=== PATIENT | female | born 1940 | race Caucasian/White ===

== ENCOUNTER 2016-11-26 09:50 | Outpatient (RCR) | payer MEDICARE ==
--- OUTSIDE RECORDS SUMMARY | 2016-09-03 09:47 | XMS REPORT | Continuity of Care Document ---
Author Author [facility] Organization [facility] Address Unknown Phone Unavailable Care Team Providers Care Handbag Parts Cutter Name Role Phone MANASA RODARTE DO PCP Insurance Providers Payer Name Policy Number Subscriber Name Relationship Wps Medicare [id number] Jordana Frias V 18 Self / Same As Patient Blue Cross [facility] Supp [id number] Jordana Frias Self / Same As Patient Advance Directives Directive Response Recorded Date/Time Advance Directives No 05/26/14 6:30am Health Care Power of Steam Bone Press Tender No 05/26/14 6:30am Organ Donor No 05/26/14 [...] IH TWICE A DAY 05/18/14 Active Aclidinium [place] 1 Puff IH TWICE A DAY 05/18/14 [...] 2014 1:00pm 312 UG/DL - TESTING PERFORMED BY:[place] [id number] [place] [address] Total Protein May 25, 2014 1:12pm 7.0 [...] MICROSCOPIC EXAM ON UNCENTRIFUGED SPECIMEN Urine Specific [place] October 27, 2013 4:23pm 1.025 H - [...] Protein Electrophoresis Note October 27, 2013 4:23pm [id number] - Urine Protein Electrophoresis Note October 27, 2013 4:23pm [id number] - Free [place] Light Chains, Quant October 27, 2013 4:23pm 13.04 MG/L - Free [place] Light Chains, Quant October 27, 2013 4:23pm 16.89 MG/L - Free [place]/Lambda Light Chain Ratio October 27, 2013 4:23pm 0.77 RATIO - Protein Electrophoresis Pathologist October 27, 2013 4:23pm SEE PATH REPORT - Urine RBC (Auto) October 27, 2013 4:23pm TRACE H - MRSA Screen Nasal May 26, 2014 6:15am MRSA not isolated Procedures No known history of procedures. Encounters Encounter Location Date/Time Discharged Recurring Via [facility] 08/09/14 8:51am Registered Clinic Via [facility] 07/26/14 9:46am
[2016-09-03 09:56] LABS: BASOPHILS % (AUTO) 0 % (0-10); EOSINOPHILS # (AUTO) 0.4 10^3/uL (0.0-0.3); EOSINOPHILS % (AUTO) 4 % (0-10); LYMPHOCYTES # (AUTO) 0.7 X 10^3 (1.0-4.0); LYMPHOCYTES % (AUTO) 8 % (12-44); MEAN CORPUSCULAR HEMOGLOBIN 26 PG (25-34); MEAN CORPUSCULAR HGB CONC 32 G/DL (32-36); MEAN CORPUSCULAR VOLUME 82 FL (80-99); MEAN PLATELET VOLUME 8.7 FL (7.4-10.4); MONOCYTES # (AUTO) 0.6 X 10^3 (0.0-1.0); MONOCYTES % (AUTO) 7 % (0-12); NEUTROPHILS % (AUTO) 80 % (42-75); PLATELET COUNT 388 10^3/uL (130-400); RED BLOOD COUNT 3.63 10^6/uL (4.35-5.85); RED CELL DISTRIBUTION WIDTH 15.5 % (10.0-14.5); WHITE BLOOD COUNT 8.7 10^3/uL (4.3-11.0)
[2016-09-03 10:40] LABS: ALANINE AMINOTRANSFERASE 24 U/L (0-55); ALBUMIN 3.8 G/DL (3.2-4.5); ANION GAP 11 MMOL/L (5-14); ASPARTATE AMINO TRANSFERASE 18 U/L (5-34); BILIRUBIN,TOTAL 0.5 MG/DL (0.1-1.0); BLOOD UREA NITROGEN 17 MG/DL (7-18); BUN/CREATININE RATIO 25; CALCIUM 9.4 MG/DL (8.5-10.1); CARBON DIOXIDE 24 MMOL/L (21-32); CHLORIDE 101 MMOL/L (98-107); CREATININE SERUM 0.69 MG/DL (0.60-1.30); GFR ESTIMATED > 60; GLUCOSE 177 MG/DL (70-105); POTASSIUM 3.8 MMOL/L (3.6-5.0); SODIUM 136 MMOL/L (135-145); TOTAL PROTEIN 6.9 G/DL (6.4-8.2)
[2016-09-03 11:24] LABS: %SAT TOTAL IRON BINDING CAPIC 5 % (15-50); TIBC 263 ug/dL (280-380)
[2016-09-04 07:41] LABS: FERRITIN 198 ng/mL (15-150); UIBC 250 ug/dL (55-450)
[2016-09-11 09:04] LABS: BASOPHILS # (AUTO) 0.1 10^3/uL (0.0-0.1); BASOPHILS % (AUTO) 1 % (0-10); EOSINOPHILS # (AUTO) 0.6 10^3/uL (0.0-0.3); EOSINOPHILS % (AUTO) 7 % (0-10); LYMPHOCYTES # (AUTO) 1.1 X 10^3 (1.0-4.0); LYMPHOCYTES % (AUTO) 13 % (12-44); MEAN CORPUSCULAR HEMOGLOBIN 25 PG (25-34); MEAN CORPUSCULAR HGB CONC 31 G/DL (32-36); MEAN CORPUSCULAR VOLUME 81 FL (80-99); MEAN PLATELET VOLUME 8.3 FL (7.4-10.4); MONOCYTES # (AUTO) 0.9 X 10^3 (0.0-1.0); MONOCYTES % (AUTO) 12 % (0-12); NEUTROPHILS # (AUTO) 5.4 X 10^3 (1.8-7.8); NEUTROPHILS % (AUTO) 68 % (42-75); PLATELET COUNT 679 10^3/uL (130-400); RED BLOOD COUNT 3.85 10^6/uL (4.35-5.85); RED CELL DISTRIBUTION WIDTH 15.4 % (10.0-14.5); WHITE BLOOD COUNT 8.1 10^3/uL (4.3-11.0)
[2016-09-11 09:41] LABS: ALANINE AMINOTRANSFERASE 52 U/L (0-55); ALBUMIN 3.9 G/DL (3.2-4.5); ANION GAP 8 MMOL/L (5-14); ASPARTATE AMINO TRANSFERASE 42 U/L (5-34); BILIRUBIN,TOTAL 0.5 MG/DL (0.1-1.0); BLOOD UREA NITROGEN 10 MG/DL (7-18); BUN/CREATININE RATIO 16; CALCIUM 9.7 MG/DL (8.5-10.1); CARBON DIOXIDE 26 MMOL/L (21-32); CHLORIDE 101 MMOL/L (98-107); CREATININE SERUM 0.63 MG/DL (0.60-1.30); GFR ESTIMATED > 60; GLUCOSE 129 MG/DL (70-105); POTASSIUM 3.7 MMOL/L (3.6-5.0); SODIUM 135 MMOL/L (135-145); TOTAL PROTEIN 7.1 G/DL (6.4-8.2)
[2016-09-24 13:16] LABS: BASOPHILS % (AUTO) 0 % (0-10); EOSINOPHILS % (AUTO) 0 % (0-10); LYMPHOCYTES # (AUTO) 0.7 X 10^3 (1.0-4.0); LYMPHOCYTES % (AUTO) 5 % (12-44); MEAN CORPUSCULAR HEMOGLOBIN 25 PG (25-34); MEAN CORPUSCULAR HGB CONC 31 G/DL (32-36); MEAN CORPUSCULAR VOLUME 80 FL (80-99); MEAN PLATELET VOLUME 8.4 FL (7.4-10.4); MONOCYTES # (AUTO) 0.2 X 10^3 (0.0-1.0); MONOCYTES % (AUTO) 2 % (0-12); NEUTROPHILS # (AUTO) 12.2 X 10^3 (1.8-7.8); NEUTROPHILS % (AUTO) 93 % (42-75); PLATELET COUNT 568 10^3/uL (130-400); RED BLOOD COUNT 3.83 10^6/uL (4.35-5.85); RED CELL DISTRIBUTION WIDTH 15.8 % (10.0-14.5); WHITE BLOOD COUNT 13.1 10^3/uL (4.3-11.0)
[2016-09-24 14:00] LABS: ALANINE AMINOTRANSFERASE 17 U/L (0-55); ALBUMIN 3.9 G/DL (3.2-4.5); ANION GAP 13 MMOL/L (5-14); ASPARTATE AMINO TRANSFERASE 17 U/L (5-34); BILIRUBIN,TOTAL 0.2 MG/DL (0.1-1.0); BLOOD UREA NITROGEN 18 MG/DL (7-18); BUN/CREATININE RATIO 23; CALCIUM 9.5 MG/DL (8.5-10.1); CARBON DIOXIDE 23 MMOL/L (21-32); CHLORIDE 100 MMOL/L (98-107); CREATININE SERUM 0.79 MG/DL (0.60-1.30); GFR ESTIMATED > 60; GLUCOSE 183 MG/DL (70-105); POTASSIUM 4.5 MMOL/L (3.6-5.0); SODIUM 136 MMOL/L (135-145)
[2016-09-24 16:18] LABS: RETICULOCYTE % 1.55 % (0.50-2.40)
[2016-09-24 17:04] LABS: %SAT TOTAL IRON BINDING CAPIC 8 % (15-50); TIBC 266 ug/dL (280-380)
[2016-09-25 08:00] LABS: UIBC 246 ug/dL (55-450)
[2016-09-25 08:01] LABS: FERRITIN 104 ng/mL (15-150)
[2016-11-19 13:25] LABS: BASOPHILS % (AUTO) 0 % (0-10); EOSINOPHILS # (AUTO) 0.2 10^3/uL (0.0-0.3); EOSINOPHILS % (AUTO) 2 % (0-10); LYMPHOCYTES # (AUTO) 1.4 X 10^3 (1.0-4.0); LYMPHOCYTES % (AUTO) 14 % (12-44); MEAN CORPUSCULAR HEMOGLOBIN 24 PG (25-34); MEAN CORPUSCULAR HGB CONC 31 G/DL (32-36); MEAN CORPUSCULAR VOLUME 79 FL (80-99); MEAN PLATELET VOLUME 8.5 FL (7.4-10.4); MONOCYTES # (AUTO) 0.8 X 10^3 (0.0-1.0); MONOCYTES % (AUTO) 8 % (0-12); NEUTROPHILS # (AUTO) 7.5 X 10^3 (1.8-7.8); NEUTROPHILS % (AUTO) 76 % (42-75); PLATELET COUNT 481 10^3/uL (130-400); RED BLOOD COUNT 3.74 10^6/uL (4.35-5.85); RED CELL DISTRIBUTION WIDTH 16.8 % (10.0-14.5); WHITE BLOOD COUNT 9.9 10^3/uL (4.3-11.0)
[2016-11-19 14:22] LABS: ALANINE AMINOTRANSFERASE 13 U/L (0-55); ALBUMIN 3.8 G/DL (3.2-4.5); ANION GAP 11 MMOL/L (5-14); ASPARTATE AMINO TRANSFERASE 14 U/L (5-34); BILIRUBIN,TOTAL 0.2 MG/DL (0.1-1.0); BLOOD UREA NITROGEN 23 MG/DL (7-18); BUN/CREATININE RATIO 30; CALCIUM 9.6 MG/DL (8.5-10.1); CARBON DIOXIDE 24 MMOL/L (21-32); CHLORIDE 101 MMOL/L (98-107); CREATININE SERUM 0.76 MG/DL (0.60-1.30); GFR ESTIMATED > 60; GLUCOSE 134 MG/DL (70-105); POTASSIUM 3.4 MMOL/L (3.6-5.0); SODIUM 136 MMOL/L (135-145); TOTAL PROTEIN 7.1 G/DL (6.4-8.2)
[2016-11-19 14:44] LABS: THYROID STIMULATING HORMONE 0.94 UIU/ML (0.35-4.94)
[2016-11-19 16:25] LABS: %SAT TOTAL IRON BINDING CAPIC 9 % (15-50); TIBC 253 ug/dL (280-380)
[2016-11-20 06:30] LABS: FERRITIN 126 ng/mL (15-150); UIBC 230 ug/dL (55-450)
[~2016-11-26 09:50] MED LIST: ACLI400A IH; ALBU8.5H2 IH; ALBU8.5H4 IH; ALPR.25T PO; BUDE6HFA IH; CALC-754 PO; CHOL200041 PO; CYAN500T44 PO; FERRIC CARBOXYMALTOSE (CANCER) 750 MG in NS (IVPB) CANCER CENTER 250 ML IV SCH; FEXO180T PO; GBPN300C PO; HYDR-3456 PO; IPRA3AMP IH; IRBE300T9 PO; LISI1TAB PO; LISI1TAB8 PO; MTF500T PO; ZAFI20TA6 PO; [UNRECOGNIZED DRUG - OTHER]
== END 2016-12-02 | disposition home or self-care (01) ==
LOC: ONC 09:50
PROVIDERS: ATTEND Internal Medicine Hematology & Oncology
DX: C34.91 Malignant neoplasm of unspecified part of right bronchus or lung (principal); C34.92 Malignant neoplasm of unspecified part of left bronchus or lung; J44.9 Chronic obstructive pulmonary disease, unspecified; E11.9 Type 2 diabetes mellitus without complications; D64.9 Anemia, unspecified; F41.9 Anxiety disorder, unspecified; Z87.891 Personal history of nicotine dependence; Z45.2 Encounter for adjustment and management of vascular access device
CPT/HCPCS: 36415; 36591; 80053; 82728; 83540; 84443; 85025; 85045; 96365; 96523; 99213

== ENCOUNTER 2016-11-28 10:00 | Outpatient (RCR) | payer MEDICARE ==
--- OUTSIDE RECORDS SUMMARY | 2016-09-02 14:45 | XMS REPORT | Continuity of Care Document ---
Author Author [facility] Organization [facility] Address Unknown Phone Unavailable Care Team Providers Care Territory Account Manager Name Role Phone MANASA RODARTE DO PCP Insurance Providers Payer Name Policy Number Subscriber Name Relationship Wps Medicare [id number] Jordana Frias V 18 Self / Same As Patient Blue Cross [facility] Supp [id number] Jordana Frias Self / Same As Patient Advance Directives Directive Response Recorded Date/Time Advance Directives No 05/26/14 6:30am Health Care Power of Numerical Control Machine Operator No 05/26/14 6:30am Organ Donor No 05/26/14 6:30am Problems Medical Problems Problem Onset Date Status Angioedema Unknown Active Medications Medication Dose Route Sig Days/Qty Instructions Order Date Discontinued Date Status HCTZ/Lisinopril (Zestoretic) 1 Each PO DAILY 11/24/12 10/10/13 Discontinued Zafirlukast 20 Mg PO TWICE A DAY 11/24/12 Active Metformin HCl (Glucophage) 500 Mg PO TWICE A DAY WITH MEALS 11/24/12 Active Gabapentin 300 Mg PO DAILY 11/24/12 Active Alprazolam 0.25 Mg PO THREE TIMES A DAY 11/24/12 Active Calcium Carbonate/Vitamin D3 1 Tab PO DAILY 11/24/12 Active Cholecalciferol (Vitamin D3) 2,000 Unit PO DAILY 11/24/12 Active Albuterol 8.5 Gm IH PRN DYSPNEA 10/09/13 05/18/14 Discontinued Ipratropium/Albuterol Sulfate 3 Ml IH FOUR TIMES DAILY PRN DYSPNEA PRN DYSPNEA 10/09/13 Active [B 12 injection] monthly 10/09/13 05/18/14 Discontinued Cyanocobalamin (Vitamin B-12) 500 Mcg PO DAILY 10/09/13 Active Irbesartan 300 Mg PO DAILY 30 Qty 10/10/13 05/18/14 Discontinued Fexofenadine HCl 1 Tab PO DAILY 1 Days 10/10/13 05/18/14 Discontinued Hydrocodone Bit/Acetaminophen 1 Each PO EVERY 6 HOURS PRN PAIN 30 Qty 05/04/14 Active Albuterol 2 Puff IH FOUR TIMES DAILY PRN SHORTNESS OF BREATH Active Lisinopril/Hydrochlorothiazide 1 Tab PO DAILY 05/18/14 Active Budesonide/Formoterol Fumarate 2 Puff IH TWICE A DAY 05/18/14 Active Aclidinium [place] 1 Puff IH TWICE A DAY 05/18/14 Active Social History Social History Problem Response Recorded Date/Time Alcohol Use Occasionally Uses 10/09/2013 8:40pm Recreational Drug Use No 10/09/2013 8:40pm Recent Foreign Travel No 10/09/2013 8:40pm Recent Infectious Disease Exposure No 10/09/2013 8:40pm Hospitalization with Isolation Denies 10/10/2013 10:19am Sexually Transmitted Disease No 10/09/2013 8:40pm HIV/AIDS No 10/09/2013 8:40pm Hospital Discharge Instructions No hospital discharge instructions. Plan of Care No plan of care. Functional Status No functional status results. Allergies, Adverse Reactions, Alerts Allergen Type Severity Reaction Status Last Updated zolpidem tartrate Allergy Unknown Active 05/04/14 Immunizations Name Given Type Date of Pneumonia Vaccine 04/10/10 Historical Date of Influenza Vaccine 08/10/13 Historical Vital Signs Acute Vital Signs Vital Response Date/Time Height 5 ft 2.5 in Weight 126 lb Body Mass Index 22.7 kg/m^2 Results Test Source Date Result Interp. Ref. Range Comments Absolute Reticulocyte Count October 27, 2013 4:23pm 37 10^3/uL N 22-82 Alanine Aminotransferase (ALT/SGPT) May 25, 2014 1:12pm 31 U/L N 30-65 Albumin May 25, 2014 1:12pm 3.2 G/DL L 3.4-5.0 Alkaline Phosphatase May 25, 2014 1:12pm 61 U/L N 50-136 Aspartate Amino Transf (AST/SGOT) May 25, 2014 1:12pm 19 U/L N 15-37 BUN/Creatinine Ratio May 25, 2014 1:12pm 26 - Basophils # (Auto) May 25, 2014 1:00pm 0.0 10^3/uL N 0.0-0.1 Basophils (%) (Auto) May 25, 2014 1:00pm 0 % N 0-10 Blood Urea Nitrogen May 25, 2014 1:12pm 21 MG/DL H 7-18 Calcium Level May 25, 2014 1:12pm 9.0 MG/DL N 8.5-10.1 Carbon Dioxide Level May 25, 2014 1:12pm 29 MMOL/L N 21-32 Chloride Level May 25, 2014 1:12pm 102 MMOL/L N 101-110 Creatinine May 25, 2014 1:12pm 0.8 MG/DL N 0.6-1.3 Eosinophils # (Auto) May 25, 2014 1:00pm 0.1 10^3/uL N 0.0-0.3 Eosinophils (%) (Auto) May 25, 2014 1:00pm 2 % N 0-10 Erythrocyte Sedimentation Rate October 27, 2013 4:23pm 30 MM/HR N 0-30 Ferritin May 25, 2014 1:00pm 71 NG/ML - Glucose Level May 25, 2014 1:12pm 136 MG/DL H 74-106 Hematocrit May 25, 2014 1:00pm 31 % L 35-52 Hemoglobin May 25, 2014 1:00pm 10.1 G/DL L 11.5-16.0 Iron Level May 25, 2014 1:00pm 28 L UG/DL - Lymphocytes # (Auto) May 25, 2014 1:00pm 1.5 X 10^3 N 1.0-4.0 Lymphocytes (%) (Auto) May 25, 2014 1:00pm 21 % N 12-44 Mean Corpuscular Hemoglobin May 25, 2014 1:00pm 27 PG N 25-34 Mean Corpuscular Hemoglobin Concent May 25, 2014 1:00pm 33 G/DL N 32- 36 Mean Corpuscular Volume May 25, 2014 1:00pm 81 FL N 80-99 Mean Platelet Volume May 25, 2014 1:00pm 8.3 FL N 7.4-10.4 Monocytes # (Auto) May 25, 2014 1:00pm 0.5 X 10^3 N 0.0-1.0 Monocytes (%) (Auto) May 25, 2014 1:00pm 7 % N 0-12 Neutrophils # (Auto) May 25, 2014 1:00pm 5.2 X 10^3 N 1.8-7.8 Neutrophils (%) (Auto) May 25, 2014 1:00pm 70 % N 42-75 Percent Reticulocyte Count October 27, 2013 4:23pm 0.97 % N 0.50-2.40 Platelet Count May 25, 2014 1:00pm 392 10^3/uL N 130-400 Potassium Level May 25, 2014 1:12pm 4.1 MMOL/L N 3.6-5.0 Red Blood Count May 25, 2014 1:00pm 3.77 10^6/uL L 4.35-5.85 Red Cell Distribution Width May 25, 2014 1:00pm 16.6 % H 10.0-14.5 Sodium Level May 25, 2014 1:12pm 139 MMOL/L N 135-145 Thyroid Stimulating Hormone (TSH) May 11, 2014 4:09pm 0.81 UIU/ML N 0.34-5.60 Total Bilirubin May 25, 2014 1:12pm 0.2 MG/DL N 0.0-1.0 Total Iron Binding Capacity May 25, 2014 1:00pm 312 UG/DL - TESTING PERFORMED BY:[place] [id number] [place] [address] Total Protein May 25, 2014 1:12pm 7.0 G/DL N 6.4-8.2 Transferrin % Saturation May 25, 2014 1:00pm 9 L % - Urine Bacteria October 27, 2013 4:23pm TRACE /HPF - Urine Bilirubin October 27, 2013 4:23pm NEGATIVE - Urine Casts October 27, 2013 4:23pm NONE /LPF - Urine Clarity October 27, 2013 4:23pm CLEAR - Urine Color October 27, 2013 4:23pm YELLOW - Urine Crystals October 27, 2013 4:23pm NONE /LPF - Urine Culture Indicated October 27, 2013 4:23pm NO - Urine Glucose (UA) October 27, 2013 4:23pm NEGATIVE - Urine Ketones October 27, 2013 4:23pm NEGATIVE - Urine Leukocyte Esterase October 27, 2013 4:23pm NEGATIVE - Urine Mucus October 27, 2013 4:23pm SMALL /LPF H - Urine Nitrite October 27, 2013 4:23pm NEGATIVE - Urine Protein October 27, 2013 4:23pm TRACE - Urine RBC October 27, 2013 4:23pm RARE /HPF - MICROSCOPIC EXAM ON UNCENTRIFUGED SPECIMEN Urine Specific [place] October 27, 2013 4:23pm 1.025 H - Urine Squamous Epithelial Cells October 27, 2013 4:23pm 0-2 /HPF - Urine Urobilinogen October 27, 2013 4:23pm NORMAL MG/DL - Urine WBC October 27, 2013 4:23pm NONE /HPF - Urine pH October 27, 2013 4:23pm 5 - White Blood Count May 25, 2014 1:00pm 7.4 10^3/uL N 4.3-11.0 Glucometer May 26, 2014 6:44am 106 MG/DL N 70-110 Estimat Glomerular Filtration Rate May 25, 2014 1:12pm > 60 - GFR INTERPRETIVE DATA UNITS FOR ESTIMATED GFR (eGFR): mL/min/1.73 M2 REFERENCE RANGE FOR ESTIMATED GFR (eGFR) eGFR NORMAL eGFR >60 MODERATELY DECREASED eGFR 30-59 SEVERLY DECREASED eGFR 15-29 KIDNEY FAILURE <15 (OR DIALYSIS) Total Protein (PEP) October 27, 2013 4:23pm 7.1 GM/DL - Urine Total Protein mg/dL October 27, 2013 4:23pm 37.0 H MG/DL - Protein Electrophoresis Note October 27, 2013 4:23pm [id number] - Urine Protein Electrophoresis Note October 27, 2013 4:23pm [id number] - Free [place] Light Chains, Quant October 27, 2013 4:23pm 13.04 MG/L - Free [place] Light Chains, Quant October 27, 2013 4:23pm 16.89 MG/L - Free [place]/Lambda Light Chain Ratio October 27, 2013 4:23pm 0.77 RATIO - Protein Electrophoresis Pathologist October 27, 2013 4:23pm SEE PATH REPORT - Urine RBC (Auto) October 27, 2013 4:23pm TRACE H - MRSA Screen Nasal May 26, 2014 6:15am MRSA not isolated Procedures No known history of procedures. Encounters Encounter Location Date/Time Discharged Recurring Via [facility] 08/09/14 8:51am Registered Clinic Via [facility] 07/26/14 9:46am
[~2016-11-28 10:00] MED LIST changes: -FERRIC CARBOXYMALTOSE (CANCER) 750 MG in NS (IVPB) CANCER CENTER 250 ML IV SCH
== END 2016-12-01 | disposition home or self-care (01) ==
LOC: PULM 10:00
PROVIDERS: ATTEND Internal Medicine Critical Care Medicine
DX: J43.8 Other emphysema (principal); R91.8 Other nonspecific abnormal finding of lung field; C34.12 Malignant neoplasm of upper lobe, left bronchus or lung; R06.2 Wheezing
CPT/HCPCS: 99211

== ENCOUNTER 2016-12-19 10:00 | Outpatient (RCR) | payer MEDICARE ==
--- OUTSIDE RECORDS SUMMARY | 2016-12-05 10:11 | XMS REPORT | Continuity of Care Document ---
Author Author [facility] Organization [facility] Address Unknown Phone Unavailable Care Team Providers Care Voip Technician Name Role Phone MANASA RODARTE DO PCP Insurance Providers Payer Name Policy Number Subscriber Name Relationship Wps Medicare [id number] Jordana Frias V 18 Self / Same As Patient Blue Cross [facility] Supp [id number] Jordana Frias Self / Same As Patient Advance Directives Directive Response Recorded Date/Time Advance Directives No 05/26/14 6:30am Health Care Power of Steelworker No 05/26/14 6:30am Organ Donor No 05/26/14 [...] IH TWICE A DAY 05/18/14 Active Aclidinium [place] 1 Puff IH TWICE A DAY 05/18/14 [...] 2014 1:00pm 312 UG/DL - TESTING PERFORMED BY:[place] [id number] [place] [address] Total Protein May 25, 2014 1:12pm 7.0 [...] MICROSCOPIC EXAM ON UNCENTRIFUGED SPECIMEN Urine Specific [place] October 27, 2013 4:23pm 1.025 H - [...] Protein Electrophoresis Note October 27, 2013 4:23pm [id number] - Urine Protein Electrophoresis Note October 27, 2013 4:23pm [id number] - Free [place] Light Chains, Quant October 27, 2013 4:23pm 13.04 MG/L - Free [place] Light Chains, Quant October 27, 2013 4:23pm 16.89 MG/L - Free [place]/Lambda Light Chain Ratio October 27, 2013 4:23pm 0.77 RATIO - Protein Electrophoresis Pathologist October 27, 2013 4:23pm SEE PATH REPORT - Urine RBC (Auto) October 27, 2013 4:23pm TRACE H - MRSA Screen Nasal May 26, 2014 6:15am MRSA not isolated Procedures No known history of procedures. Encounters Encounter Location Date/Time Discharged Recurring Via [facility] 08/09/14 8:51am Registered Clinic Via [facility] 07/26/14 9:46am
[2017-01-26] MEDS ORDERED: CEFD300C3 PO (13:01)
== END 2017-03-05 | disposition home or self-care (01) ==
LOC: PULM 10:00
PROVIDERS: ATTEND Internal Medicine Critical Care Medicine
DX: J43.8 Other emphysema (principal); R91.8 Other nonspecific abnormal finding of lung field; C34.12 Malignant neoplasm of upper lobe, left bronchus or lung; R06.2 Wheezing

== ENCOUNTER 2017-01-26 11:40 | Emergency (ER) | payer MEDICARE ==
[~2017-01-26] VITALS: Ht 157.5 cm; Wt 49.9 kg
--- OUTSIDE RECORDS SUMMARY | 2017-01-26 11:46 | XMS REPORT | Continuity of Care Document ---
Author Author [facility] Organization [facility] Address Unknown Phone Unavailable Care Team Providers Care Fuel Dock Attendant Name Role Phone MANASA RODARTE DO PCP Insurance Providers Payer Name Policy Number Subscriber Name Relationship Wps Medicare [id number] Jordana Frias V 18 Self / Same As Patient Blue Cross [facility] Supp [id number] Jordana Frias Self / Same As Patient Advance Directives Directive Response Recorded Date/Time Advance Directives No 05/26/14 6:30am Health Care Power of Rose Grading Supervisor No 05/26/14 6:30am Organ Donor No 05/26/14 [...] IH TWICE A DAY 05/18/14 Active Aclidinium [place] 1 Puff IH TWICE A DAY 05/18/14 [...] 2014 1:00pm 312 UG/DL - TESTING PERFORMED BY:[place] [id number] [place] [address] Total Protein May 25, 2014 1:12pm 7.0 [...] MICROSCOPIC EXAM ON UNCENTRIFUGED SPECIMEN Urine Specific [place] October 27, 2013 4:23pm 1.025 H - [...] Protein Electrophoresis Note October 27, 2013 4:23pm [id number] - Urine Protein Electrophoresis Note October 27, 2013 4:23pm [id number] - Free [place] Light Chains, Quant October 27, 2013 4:23pm 13.04 MG/L - Free [place] Light Chains, Quant October 27, 2013 4:23pm 16.89 MG/L - Free [place]/Lambda Light Chain Ratio October 27, 2013 4:23pm 0.77 RATIO - Protein Electrophoresis Pathologist October 27, 2013 4:23pm SEE PATH REPORT - Urine RBC (Auto) October 27, 2013 4:23pm TRACE H - MRSA Screen Nasal May 26, 2014 6:15am MRSA not isolated Procedures No known history of procedures. Encounters Encounter Location Date/Time Discharged Recurring Via [facility] 08/09/14 8:51am Registered Clinic Via [facility] 07/26/14 9:46am
[2017-01-26 12:16] LABS: BASOPHILS % (AUTO) 0 % (0-10); EOSINOPHILS # (AUTO) 0.1 10^3/uL (0.0-0.3); EOSINOPHILS % (AUTO) 0 % (0-10); LYMPHOCYTES # (AUTO) 1.3 X 10^3 (1.0-4.0); LYMPHOCYTES % (AUTO) 11 % (12-44); MEAN CORPUSCULAR HEMOGLOBIN 28 PG (25-34); MEAN CORPUSCULAR HGB CONC 32 G/DL (32-36); MEAN CORPUSCULAR VOLUME 87 FL (80-99); MONOCYTES # (AUTO) 0.7 X 10^3 (0.0-1.0); MONOCYTES % (AUTO) 6 % (0-12); NEUTROPHILS # (AUTO) 9.9 X 10^3 (1.8-7.8); NEUTROPHILS % (AUTO) 82 % (42-75); PLATELET COUNT 490 10^3/uL (130-400); RED BLOOD COUNT 3.91 10^6/uL (4.35-5.85); RED CELL DISTRIBUTION WIDTH 16.9 % (10.0-14.5)
[2017-01-26 12:36] LABS: ALANINE AMINOTRANSFERASE 19 U/L (0-55); ANION GAP 16 MMOL/L (5-14); ASPARTATE AMINO TRANSFERASE 18 U/L (5-34); BILIRUBIN,TOTAL 0.3 MG/DL (0.1-1.0); BLOOD UREA NITROGEN 13 MG/DL (7-18); BUN/CREATININE RATIO 18; CALCIUM 10.5 MG/DL (8.5-10.1); CARBON DIOXIDE 24 MMOL/L (21-32); CHLORIDE 94 MMOL/L (98-107); CREATININE SERUM 0.71 MG/DL (0.60-1.30); GFR ESTIMATED > 60; GLUCOSE 115 MG/DL (70-105); POTASSIUM 3.9 MMOL/L (3.6-5.0); SODIUM 134 MMOL/L (135-145); TOTAL PROTEIN 7.7 G/DL (6.4-8.2)
--- NOTE | 2017-01-26 12:52 | Diagnostic Imaging Report ---
INDICATION: Cough, fever, shortness of air, yellow bloody sputum for two days. Prior history of squamous cell carcinoma of the lungs, status post surgery. EXAMINATION: Chest, 01/26/2017. COMPARISON: 05/08/2015. FINDINGS: There is shift of the mediastinum towards the left with postoperative change since previous chest x-ray. Volume loss throughout the left hemithorax is noted with diffuse airspace opacity in the left lung, much of which could be due to atelectasis, although underlying infiltrates not excluded; correlate with symptoms. There is an effusion in the left mid and lower lung. Right lung is hyperinflated. There is a chest port overlying the right chest. The tip is likely in the SVC. Heart is difficult to evaluate but is likely mildly enlarged. There is mild pulmonary vascular congestion. IMPRESSION: 1. Findings suspicious for pulmonary vascular congestion. 2. Likely infiltrates throughout the left lung with underlying residual mass or new mass not excluded given the diffuse airspace opacities and effusion in the left lung. Dictated by: Dictated on workstation # [id number]
--- NOTE | 2017-01-26 12:53 | ED Respiratory ---
General Chief Complaint: Cough/Cold/Flu Symptoms Stated Complaint: PRODUCTIVE COUGH/FEVER Nursing Triage Note: PT HERE WITH C/O COUGH FEVER, SOA, YELLOW BLOODY SPUTUM FOR 2 DAYS. Source: patient Exam Limitations: no limitations History of Present Illness Time seen by provider: 12:48 Initial Comments The patient is a 76-year-old white female who presents today with a complaint of cough and colored sputum. She has a lung cancer on the left diagnosed in 2013. She had been cautioned by her providers that should she began to run fever, note increasing shortness of breath, or developed pleuritic chest pain that she should seek adequate attention. She has previously taken chemotherapy. Her last CT scan done several months ago showed a considerable progression of disease with an pleuritic involvement. She feels that this illness any treatment options or interest on her part. She is not aware of fever at this time. Timing/Duration: yesterday Prior Episodes/Possible Cause: occasional episodes Associated Symptoms: denies symptoms Allergies and Home Medications Allergies Coded Allergies: zolpidem tartrate (Unverified Allergy, Unknown, 05/04/14) Home Medications Aclidinium [place] 400 Mcg Aer.pow.ba 1 PUFF IH BID (Reported) Albuterol 8.5 Gm Hfa.aer.ad 2 PUFF IH QID PRN PRN SHORTNESS OF BREATH (Reported ) PRN SOB Alprazolam 0.25 Mg Tablet 0.25 MG PO TID (Reported) Budesonide/Formoterol Fumarate 10.2 Gm Hfa.aer.ad 2 PUFF IH BID (Reported) Calcium Carbonate/Vitamin D3 1 Each Tablet 1 TAB PO DAILY (Reported) Cholecalciferol (Vitamin D3) 2,000 Unit Tablet 2,000 UNIT PO DAILY (Reported) Cyanocobalamin (Vitamin B-12) 500 Mcg Tablet 500 MCG PO DAILY (Reported) Gabapentin 300 Mg Cap 300 MG PO DAILY (Reported) Hydrocodone/Acetaminophen 1 Each Tablet #30 1 EACH PO Q6H PRN PRN PAIN Prescribed by: SOLIS VILLAGOMEZ on 05/04/14 1057 Ipratropium/Albuterol Sulfate 3 Ml Ampul.neb 3 ML IH QID PRN PRN DYSPNEA ( Reported) PRN DYSPNEA Lisinopril/Hydrochlorothiazide 1 Tab Tablet 1 TAB PO DAILY (Reported) Metformin Hcl 500 Mg Tablet 500 MG PO BID WITH MEALS (Reported) Zafirlukast 20 Mg Tablet 20 MG PO BID (Reported) Constitutional: see HPI EENTM: no symptoms reported Respiratory: cough dyspnea on exertion phlegm short of breath Cardiovascular: no symptoms reported Gastrointestinal: no symptoms reported Genitourinary: no symptoms reported Musculoskeletal: no symptoms reported Skin: no symptoms reported Psychiatric/Neurological: No Symptoms Reported Hematologic/Lymphatic: No Symptoms Reported Immunological/Allergic: no symptoms reported Past Zliibwk-Qotjvp-Meaayf Hx Patient Social History Recent Foreign Travel: No Contact w/Someone Who Travel: No Recent Infectious Disease Expo: No Recent Hopitalizations: No Immunizations Up To Date Date of Pneumonia Vaccine: Apr 10, 2010 Date of Influenza Vaccine: Aug 10, 2013 Seasonal Allergies Seasonal Allergies: No Surgeries HX Surgeries: Yes (RIGHT SALPINGO-OOPHORECTOMY; RIGHT KNEE CAP) Respiratory Hx Respiratory Disorders: Yes Respiratory Disorders: Asthma Cardiovascular Hx Cardiac Disorders: Yes Neurological Hx Neurological Disorders: Yes Reproductive System Hx Reproductive Disorders: No Sexually Transmitted Disease: No HIV/AIDS: No Female Reproductive Disorders: Denies, Ovarian Cyst Genitourinary Hx Genitourinary Disorders: No Gastrointestinal Hx Gastrointestinal Disorders: No Musculoskeletal Hx Musculoskeletal Disorders: No Endocrine Hx Endocrine Disorders: Yes Endocrine Disorders: Diabetes, Non-Insulin dep HEENT HX ENT Disorders: No Cancer Hx Cancer: Yes Cancer: Lung Psychosocial Hx Psychiatric Problems: Yes Behavioral Health Disorders: Anxiety Integumentary HX Skin/Integumentary Disorder: No Blood Transfusions Hx Blood Disorders: No Adverse Reaction to a Blood Tr: No Family Medical History Family Medial History: Family history: Alzheimer's disease 03 MOTHER Family history: Diabetes mellitus 03 MOTHER 09 BROTHER Family history: Hypertension 03 MOTHER 09 BROTHER 09 SISTER Myocardial infarction 03 FATHER Physical Exam Vital Signs Vital Sign - Last 12Hours 01/26/17 11:46 Temp 98.0 Pulse 96 Resp 18 B/P 163/69 Pulse Ox 96 O2 Delivery Room Air Capillary Refill : Less Than 3 Seconds General Appearance: mild distress Eyes: Bilateral Eye Normal Inspection HEENT: normal ENT inspection Neck: full range of motion Respiratory: other (minimum air flow is noted on the left by auscultation) Cardiovascular: normal peripheral pulses regular rate, rhythm no edema no gallop no JVD no murmur tachycardia (slight) Gastrointestinal: normal bowel sounds non tender soft no organomegaly no pulsatile mass Extremities: normal range of motion non-tender normal inspection no pedal edema no calf tenderness normal capillary refill pelvis stable 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 no motor/sensory deficits alert normal mood/affect oriented x 3 Skin: normal color warm/dry cyanosis cool diaphoresis damp Lymphatic: no adenopathy Focused Exam Lactic Acid Level Laboratory Tests Test 01/26/17 12:10 Alanine Aminotransferase (ALT/SGPT) 19U/L (0-55) Albumin 4.0G/DL (3.2-4.5) Alkaline Phosphatase 79U/L (40-136) Anion Gap 16MMOL/L (5-14) H Aspartate Amino Transf (AST/SGOT) 18U/L (5-34) BUN/Creatinine Ratio 18 Blood Urea Nitrogen 13MG/DL (7-18) Calcium Level 10.5MG/DL (8.5-10.1) H Carbon Dioxide Level 24MMOL/L (21-32) Chloride Level 94MMOL/L (98-107) L Creatinine 0.71MG/DL (0.60-1.30) Estimat Glomerular Filtration Rate > 60 Glucose Level 115MG/DL (70-105) H Potassium Level 3.9MMOL/L (3.6-5.0) Sodium Level 134MMOL/L (135-145) L Total Bilirubin 0.3MG/DL (0.1-1.0) Total Protein 7.7G/DL (6.4-8.2) Progress/Results/Core Measures Results/Orders Lab Results Laboratory Tests Test 01/26/17 12:10 Range/Units Alanine Aminotransferase (ALT/SGPT) 19 0-55 U/L Albumin 4.0 3.2-4.5 G/DL Alkaline Phosphatase 79 40-136 U/L Anion Gap 16 H 5-14 MMOL/L Aspartate Amino Transf (AST/SGOT) 18 5-34 U/L BUN/Creatinine Ratio 18 Basophils # (Auto) 0.0 0.0-0.1 10^3/uL Basophils (%) (Auto) 0 0-10 % Blood Urea Nitrogen 13 7-18 MG/DL Calcium Level 10.5 H 8.5-10.1 MG/DL Carbon Dioxide Level 24 21-32 MMOL/L Chloride Level 94 L 98-107 MMOL/L Creatinine 0.71 0.60-1.30 MG/DL Eosinophils # (Auto) 0.1 0.0-0.3 10^3/uL Eosinophils (%) (Auto) 0 0-10 % Estimat Glomerular Filtration Rate > 60 Glucose Level 115 H 70-105 MG/DL Hematocrit 34 L 35-52 % Hemoglobin 11.0 L 11.5-16.0 G/DL Lymphocytes # (Auto) 1.3 1.0-4.0 X 10^3 Lymphocytes (%) (Auto) 11 L 12-44 % Mean Corpuscular Hemoglobin 28 25-34 PG Mean Corpuscular Hemoglobin Concent 32 32-36 G/DL Mean Corpuscular Volume 87 80-99 FL Mean Platelet Volume 9.0 7.4-10.4 FL Monocytes # (Auto) 0.7 0.0-1.0 X 10^3 Monocytes (%) (Auto) 6 0-12 % Neutrophils # (Auto) 9.9 H 1.8-7.8 X 10^3 Neutrophils (%) (Auto) 82 H 42-75 % Platelet Count 490 H 130-400 10^3/uL Potassium Level 3.9 3.6-5.0 MMOL/L Red Blood Count 3.91 L 4.35-5.85 10^6/uL Red Cell Distribution Width 16.9 H 10.0-14.5 % Sodium Level 134 L 135-145 MMOL/L Total Bilirubin 0.3 0.1-1.0 MG/DL Total Protein 7.7 6.4-8.2 G/DL White Blood Count 12.0 H 4.3-11.0 10^3/uL My Orders Orders-PRACHI MIRANDA MD Cbc With Automated Diff (01/26/17 12:03) Comprehensive Metabolic Panel (01/26/17 12:03) Chest 1 View, Ap/Pa Only (01/26/17 12:03) Rocephin 1 Gm Iv (1 X Dose) (01/26/17 13:00) Vital Signs/I&O Vital Sign - Last 12Hours 01/26/17 01/26/17 11:46 11:49 Temp 98.0 Pulse 96 Resp 18 B/P 163/69 Pulse Ox 96 O2 Delivery Room Air Room Air Blood Pressure Mean: 100 Departure Communication Progress Notes Considerable discussion was held with the patient relative to the difficulty of determining whether this is an acute bacterial infection or merely progression of her known lung cancer. She states that she has had 3 previous courses of chemotherapy. She states that the only thing available to her at this time as a course of experimental treatment. She is aware of her short term prognosis and does not wish to pursue that. It was explained to her that I am unable to tell given the involvement in the left chest whether there is any pneumonia component to this. Given the change in the sputum I'm perfectly okay with treating her with oral antibiotics and she is comfortable with that as well. Impression Impression: Primary Impression: URI symptoms Additional Impression: left sided lung cancer Disposition: HOME, SELF-CARE Condition: Stable/Unchanged Departure-Patient Inst. Decision time for Depature: 12:58 Referrals: MANASA RODARTE DO (PCP) Primary Care Physician VADIM SOLER MD (Family) Primary Care Physician Patient Instructions: Cough, Adult (DC) Add. Discharge Instructions: All discharge instructions reviewed with patient and/or family. Voiced understanding. Take Omnicef as directed If further problems consult your primary care Scripts Cefdinir 300 Mg [id number] Mg PO BID #14 CAP Prov:PRACHI MIRANDA MD 01/26/17 PRACHI MIRANDA MD Jan 26, 2017 12:53
[2017-01-26] MEDS ORDERED: cefTRIAXone INJECTION 1,000 MG in NS (IVPB) 50 ML IV ONE (13:00)
[2017-01-26] MEDS ORDERED: CEFD300C3 PO (13:01)
[2017-01-26 13:13] VITALS: BP 163/69
== END 2017-01-26 13:33 | disposition home or self-care (01) ==
LOC: EDUNIT# 11:40 → ER 11:42
DX: J06.9 Acute upper respiratory infection, unspecified (principal); E11.9 Type 2 diabetes mellitus without complications; Z79.84 Long term (current) use of oral hypoglycemic drugs; Z79.899 Other long term (current) drug therapy; Z85.118 Personal history of other malignant neoplasm of bronchus and lung; Z92.21 Personal history of antineoplastic chemotherapy
CPT/HCPCS: 36415; 71010; 80053; 85025; 96374; 99285

== ENCOUNTER 2017-02-04 10:57 | Outpatient (RCR) | payer MEDICARE ==
--- OUTSIDE RECORDS SUMMARY | 2016-12-03 13:16 | XMS REPORT | Continuity of Care Document ---
Author Author [facility] Organization [facility] Address Unknown Phone Unavailable Care Team Providers Care Chief Medical Director Name Role Phone MANASA RODARTE DO PCP Insurance Providers Payer Name Policy Number Subscriber Name Relationship Wps Medicare [id number] Jordana Frias V 18 Self / Same As Patient Blue Cross [facility] Supp [id number] Jordana Frias Self / Same As Patient Advance Directives Directive Response Recorded Date/Time Advance Directives No 05/26/14 6:30am Health Care Power of Noodle Catalyst Maker No 05/26/14 6:30am Organ Donor No 05/26/14 [...] IH TWICE A DAY 05/18/14 Active Aclidinium [place] 1 Puff IH TWICE A DAY 05/18/14 [...] 2014 1:00pm 312 UG/DL - TESTING PERFORMED BY:[place] [id number] [place] [address] Total Protein May 25, 2014 1:12pm 7.0 [...] MICROSCOPIC EXAM ON UNCENTRIFUGED SPECIMEN Urine Specific [place] October 27, 2013 4:23pm 1.025 H - [...] Protein Electrophoresis Note October 27, 2013 4:23pm [id number] - Urine Protein Electrophoresis Note October 27, 2013 4:23pm [id number] - Free [place] Light Chains, Quant October 27, 2013 4:23pm 13.04 MG/L - Free [place] Light Chains, Quant October 27, 2013 4:23pm 16.89 MG/L - Free [place]/Lambda Light Chain Ratio October 27, 2013 4:23pm 0.77 RATIO - Protein Electrophoresis Pathologist October 27, 2013 4:23pm SEE PATH REPORT - Urine RBC (Auto) October 27, 2013 4:23pm TRACE H - MRSA Screen Nasal May 26, 2014 6:15am MRSA not isolated Procedures No known history of procedures. Encounters Encounter Location Date/Time Discharged Recurring Via [facility] 08/09/14 8:51am Registered Clinic Via [facility] 07/26/14 9:46am
[2016-12-09 11:34] LABS: BASOPHILS % (AUTO) 0 % (0-10); EOSINOPHILS % (AUTO) 1 % (0-10); LYMPHOCYTES % (AUTO) 12 % (12-44); MEAN CORPUSCULAR HEMOGLOBIN 25 PG (25-34); MEAN CORPUSCULAR HGB CONC 31 G/DL (32-36); MEAN CORPUSCULAR VOLUME 83 FL (80-99); MEAN PLATELET VOLUME 8.7 FL (7.4-10.4); MONOCYTES # (AUTO) 0.7 X 10^3 (0.0-1.0); MONOCYTES % (AUTO) 8 % (0-12); NEUTROPHILS # (AUTO) 6.6 X 10^3 (1.8-7.8); NEUTROPHILS % (AUTO) 79 % (42-75); PLATELET COUNT 444 10^3/uL (130-400); RED BLOOD COUNT 3.86 10^6/uL (4.35-5.85); RED CELL DISTRIBUTION WIDTH 19.8 % (10.0-14.5); WHITE BLOOD COUNT 8.4 10^3/uL (4.3-11.0)
[2017-01-06 13:43] LABS: BASOPHILS % (AUTO) 0 % (0-10); EOSINOPHILS # (AUTO) 0.2 10^3/uL (0.0-0.3); EOSINOPHILS % (AUTO) 2 % (0-10); LYMPHOCYTES # (AUTO) 1.3 X 10^3 (1.0-4.0); LYMPHOCYTES % (AUTO) 14 % (12-44); MEAN CORPUSCULAR HEMOGLOBIN 27 PG (25-34); MEAN CORPUSCULAR HGB CONC 32 G/DL (32-36); MEAN CORPUSCULAR VOLUME 85 FL (80-99); MEAN PLATELET VOLUME 8.7 FL (7.4-10.4); MONOCYTES # (AUTO) 0.7 X 10^3 (0.0-1.0); MONOCYTES % (AUTO) 8 % (0-12); NEUTROPHILS % (AUTO) 76 % (42-75); PLATELET COUNT 437 10^3/uL (130-400); RED BLOOD COUNT 3.81 10^6/uL (4.35-5.85); RED CELL DISTRIBUTION WIDTH 18.9 % (10.0-14.5); RETICULOCYTE % 0.91 % (0.50-2.40); WHITE BLOOD COUNT 9.2 10^3/uL (4.3-11.0)
[2017-01-06 14:18] LABS: ALANINE AMINOTRANSFERASE 16 U/L (0-55); ALBUMIN 3.8 G/DL (3.2-4.5); ANION GAP 15 MMOL/L (5-14); ASPARTATE AMINO TRANSFERASE 14 U/L (5-34); BILIRUBIN,TOTAL 0.2 MG/DL (0.1-1.0); BLOOD UREA NITROGEN 19 MG/DL (7-18); BUN/CREATININE RATIO 23; CALCIUM 9.8 MG/DL (8.5-10.1); CARBON DIOXIDE 25 MMOL/L (21-32); CHLORIDE 97 MMOL/L (98-107); CREATININE SERUM 0.81 MG/DL (0.60-1.30); GFR ESTIMATED > 60; GLUCOSE 196 MG/DL (70-105); POTASSIUM 3.2 MMOL/L (3.6-5.0); SODIUM 137 MMOL/L (135-145); TOTAL PROTEIN 6.9 G/DL (6.4-8.2)
[2017-01-06 14:42] LABS: THYROID STIMULATING HORMONE 0.72 UIU/ML (0.35-4.94)
[~2017-02-04 10:57] MED LIST changes: +CEFD300C3 PO; +FERRIC CARBOXYMALTOSE (CANCER) 750 MG in NS (IVPB) CANCER CENTER 250 ML IV SCH
[2017-02-04 11:37] LABS: BASOPHILS % (AUTO) 0 % (0-10); EOSINOPHILS # (AUTO) 0.1 10^3/uL (0.0-0.3); EOSINOPHILS % (AUTO) 1 % (0-10); LYMPHOCYTES # (AUTO) 1.1 X 10^3 (1.0-4.0); LYMPHOCYTES % (AUTO) 9 % (12-44); MEAN CORPUSCULAR HEMOGLOBIN 28 PG (25-34); MEAN CORPUSCULAR HGB CONC 32 G/DL (32-36); MEAN CORPUSCULAR VOLUME 88 FL (80-99); MEAN PLATELET VOLUME 8.4 FL (7.4-10.4); MONOCYTES # (AUTO) 0.8 X 10^3 (0.0-1.0); MONOCYTES % (AUTO) 7 % (0-12); NEUTROPHILS # (AUTO) 9.5 X 10^3 (1.8-7.8); NEUTROPHILS % (AUTO) 82 % (42-75); PLATELET COUNT 477 10^3/uL (130-400); RED BLOOD COUNT 3.58 10^6/uL (4.35-5.85); RED CELL DISTRIBUTION WIDTH 16.6 % (10.0-14.5); WHITE BLOOD COUNT 11.6 10^3/uL (4.3-11.0)
[2017-02-04 12:21] LABS: ALANINE AMINOTRANSFERASE 14 U/L (0-55); ALBUMIN 3.6 G/DL (3.2-4.5); ANION GAP 11 MMOL/L (5-14); ASPARTATE AMINO TRANSFERASE 14 U/L (5-34); BILIRUBIN,TOTAL 0.3 MG/DL (0.1-1.0); BLOOD UREA NITROGEN 15 MG/DL (7-18); BUN/CREATININE RATIO 25; CALCIUM 10.2 MG/DL (8.5-10.1); CARBON DIOXIDE 27 MMOL/L (21-32); CHLORIDE 96 MMOL/L (98-107); GFR ESTIMATED > 60; GLUCOSE 109 MG/DL (70-105); POTASSIUM 3.7 MMOL/L (3.6-5.0); SODIUM 134 MMOL/L (135-145); TOTAL PROTEIN 6.7 G/DL (6.4-8.2)
[2017-02-04 12:42] LABS: THYROID STIMULATING HORMONE 0.56 UIU/ML (0.35-4.94)
== END 2017-03-03 | disposition home or self-care (01) ==
LOC: ONC 10:57
PROVIDERS: ATTEND Internal Medicine Hematology & Oncology
DX: C34.91 Malignant neoplasm of unspecified part of right bronchus or lung (principal); C34.92 Malignant neoplasm of unspecified part of left bronchus or lung; J44.9 Chronic obstructive pulmonary disease, unspecified; E11.9 Type 2 diabetes mellitus without complications; D64.9 Anemia, unspecified; F41.9 Anxiety disorder, unspecified; Z87.891 Personal history of nicotine dependence
CPT/HCPCS: 36415; 36591; 80053; 82378; 82728; 83540; 84443; 85025; 85045; 96365; 99213

== ENCOUNTER → 2017-05-01 | Outpatient (CLI) | payer MEDICARE ==
[~2017-05-01] MED LIST changes: +BARIUM SUSPENSION 2.1% (VANILLA SILQ) 450 ML PO ONE; +CATHETER FLUSH 10 ML SYR IV PRN; -FERRIC CARBOXYMALTOSE (CANCER) 750 MG in NS (IVPB) CANCER CENTER 250 ML IV SCH; +IOHEXOL 350 MG/ML 100 ML (OMNIPAQUE 350) VIAL IV ONE; +NS 100 ML (IVPB) BAG IV ONE
== END ==
DX: R22.2 Localized swelling, mass and lump, trunk (principal); E04.1 Nontoxic single thyroid nodule; C34.12 Malignant neoplasm of upper lobe, left bronchus or lung

== ENCOUNTER 2017-05-08 05:35 | Emergency (ER) | payer MEDICARE ==
[~2017-05-08] VITALS: Ht 157.5 cm; Wt 44.9 kg
[~2017-05-08 05:35] MED LIST changes: -BARIUM SUSPENSION 2.1% (VANILLA SILQ) 450 ML PO ONE; -CATHETER FLUSH 10 ML SYR IV PRN; -IOHEXOL 350 MG/ML 100 ML (OMNIPAQUE 350) VIAL IV ONE; -NS 100 ML (IVPB) BAG IV ONE
[2017-05-08] MEDS ORDERED: MAGN250T13 PO (06:02)
[2017-05-08] MEDS ORDERED: HYDR50TA3 PO (06:02)
[2017-05-08] MEDS ORDERED: OMEP40CA36 PO (06:02)
[2017-05-08] MEDS ORDERED: TIOT18CA2 IH (06:02)
[2017-05-08] MEDS ORDERED: MORP-34 PO (06:02)
[2017-05-08] MEDS ORDERED: DOCU100T7 PO (06:02)
[2017-05-08] MEDS ORDERED: MONT10TA24 PO (06:02)
[2017-05-08] MEDS ORDERED: FURO20TA4 PO (06:02)
[2017-05-08] MEDS ORDERED: morphine INJ 10 MG/ML 1ML (SYR OR VIAL) IVP STA (06:12)
[2017-05-08 06:29] LABS: BASOPHILS % (AUTO) 0 % (0-10); EOSINOPHILS # (AUTO) 0.1 10^3/uL (0.0-0.3); EOSINOPHILS % (AUTO) 1 % (0-10); LYMPHOCYTES # (AUTO) 0.8 X 10^3 (1.0-4.0); LYMPHOCYTES % (AUTO) 6 % (12-44); MEAN CORPUSCULAR HEMOGLOBIN 26 PG (25-34); MEAN CORPUSCULAR HGB CONC 32 G/DL (32-36); MEAN CORPUSCULAR VOLUME 82 FL (80-99); MEAN PLATELET VOLUME 8.7 FL (7.4-10.4); MONOCYTES % (AUTO) 8 % (0-12); NEUTROPHILS # (AUTO) 10.9 X 10^3 (1.8-7.8); NEUTROPHILS % (AUTO) 86 % (42-75); PLATELET COUNT 546 10^3/uL (130-400); RED BLOOD COUNT 3.51 10^6/uL (4.35-5.85); RED CELL DISTRIBUTION WIDTH 14.3 % (10.0-14.5); WHITE BLOOD COUNT 12.8 10^3/uL (4.3-11.0)
[2017-05-08 06:31] LABS: INR 1.1 (0.8-1.4); PROTHROMBIN TIME PATIENT 13.4 SEC (12.2-14.7)
--- NOTE | 2017-05-08 06:33 | ED General ---
General Chief Complaint: Chest Pain Stated Complaint: UPPER ABD PAIN,DIARRHEA Nursing Triage Note: pt c/o chest pain starting at 0400. pt had radiation for lung ca yesterday. also c/o diarrhea after taking several laxatives for constipation starting last week. Nursing Sepsis Screen: No Definite Risk Source of Information: Patient History of Present Illness Time Seen by Provider: 06:05 Initial Comments PT HAS METASTATIC LUNG CANCER AND HAS CHRONIC LEFT CHEST PAIN AND BACK PAIN ( RIB METS ) , WELL CHRONIC SHORTNESS OF BREATH PT STATES SHE FORGOT TO TAKE HER PAIN PILLS THIS AM--TAKES MORPHINE 30 MG BID, HAS NOT TAKEN ANY OF HER OTHER MEDICATIONS EITHER, AND HAS NOT USED INHALER OR NEBULIZER TODAY PT STATES PAIN IS WORSE WITH ANY MOVEMENT OR WITH DEEP BREATHS, AND IS NOT DIFFERENT THAN WHAT SHE HAS HAD IN THE PAST PT STATES "IT HURTS BECAUSE THAT'S WHERE MY CANCER IS AND I'M SHORT OF BREATH BECAUSE THE TUMOR'S GOING INTO MY AIRWAY" PT ALSO STATES SHE HAS COPD--QUIT SMOKING APPROXIMATELY 6 YEARS AGO WAS DX WITH LUNG CANCER 3 YEARS AGO PT HAS NOT HAD RECENT CHEMOTHERAPY PT HAD FIRST OF 10 RADIATION TREATMENTS YESTERDAY, AND IS TO HAVE THEM DAILY PT HAS HAD ONGOING ISSUES WITH CONSTIPATION, AND WAS "REALLY BLOCKED" 2 WEEKS AGO, AND WAS INSTRUCTED TO TAKE MIRALAX DAILY, AND USE FLEET'S ENEMA AND MILK OF MAGNESIA IF SHE HAD NOT HAD A BM IN 3 DAYS LAST BM WAS A WEEK AGO, SO SHE TOOK MILK OF MAGNESIA AND THEN HAD 3 DIARRHEAL STOOLS DURING THE NIGHT--STATES WHEN SHE WAS HAVING DIARRHEA, IT MADE THE PAIN IN HER CHEST WORSE, SO SHE CAME HERE. NO NAUSEA/VOMITING PT ABLE TO EAT AND DRINK NORMALLY NO URINARY SYMPTOMS STATES SHE HAD FEVER OF "102" 2 [facility], BUT DID NOT HAVE ANY LAB WORK AND WAS NOT PRESCRIBED ANY ANTIBIOTICS. PT DENIES ANY FEVER SINCE THEN NEXT APPOINTMENT WITH DR. SOLER IS 05/19/17 PCP: DR. RODARTE ONCOLOGY: DR. SOLER Allergies and Home Medications Allergies Coded Allergies: zolpidem tartrate (Unverified Allergy, Unknown, 05/04/14) Home Medications Albuterol 8.5 Gm Hfa.aer.ad, 2 PUFF IH QID PRN for SHORTNESS OF BREATH, ( Reported) PRN SOB Budesonide/Formoterol Fumarate 10.2 Gm Hfa.aer.ad, 2 PUFF IH BID, (Reported) Cholecalciferol (Vitamin D3) 2,000 Unit Tablet, 2,000 UNIT PO DAILY, (Reported) Cyanocobalamin (Vitamin B-12) 500 Mcg Tablet, 500 MCG PO DAILY, (Reported) Docusate Sodium 100 Mg Tablet, 100 MG PO PRN, (Reported) Furosemide 20 Mg Tablet, 20 MG PO PRN, (Reported) Gabapentin 300 Mg Cap, 300 MG PO TID, (Reported) Hydrochlorothiazide 50 Mg Tablet, 50 MG PO DAILY, #30 (Reported) Hydrocodone/Acetaminophen 1 Each Tablet, 1 EACH PO Q6H PRN for PAIN, #30 Prescribed by: SOLIS VILLAGOMEZ on 05/04/14 1057 Ipratropium/Albuterol Sulfate 3 Ml Ampul.neb, 3 ML IH QID PRN for DYSPNEA, ( Reported) PRN DYSPNEA Magnesium Oxide 250 Mg Tablet, 500 MG PO DAILY, (Reported) Metformin Hcl 500 Mg Tablet, 1,000 MG PO BID WITH MEALS, (Reported) Montelukast Sodium 10 Mg Tablet, 10 MG PO DAILY, #90 (Reported) Morphine Sulfate 30 Mg Tablet.er, 30 MG PO Q12H, #60 (Reported) Omeprazole 40 Mg Capsule.dr, 40 MG PO DAILY, #30 (Reported) Tiotropium Henderson 1 Inh Aerp, 1 INH IH DAILY, (Reported) Constitutional: see HPI EENTM: no symptoms reported Respiratory: see HPI, dyspnea on exertion, short of breath Cardiovascular: see HPI, chest pain Gastrointestinal: see HPI, No abdominal pain, constipation, diarrhea, No nausea , No vomiting Genitourinary: no symptoms reported Musculoskeletal: see HPI, back pain Skin: no symptoms reported Psychiatric/Neurological: No Symptoms Reported Hematologic/Lymphatic: No Symptoms Reported Immunological/Allergic: no symptoms reported Past Tvwsmuv-Plnjdj-Pvbfyq Hx Patient Social History Alcohol Use: Past History Recreational Drug Use: No Smoking Status: Former Smoker (QUIT APPROXIMATELY 2010) Type Used: Cigarettes Recent Foreign Travel: No Contact w/Someone Who Travel: No Recent Infectious Disease Expo: No Recent Hopitalizations: No Immunizations Up To Date Date of Pneumonia Vaccine: Apr 10, 2010 Date of Influenza Vaccine: Aug 10, 2013 Seasonal Allergies Seasonal Allergies: No Surgeries HX Surgeries: Yes (RIGHT SALPINGO-OOPHORECTOMY; RIGHT KNEE CAP; BRONCHOSCOPY: PORT RIGHT CHEST) Surgeries: Oophorectomy, Orthopedic Respiratory Hx Respiratory Disorders: Yes (METASTATIC LUNG CANCER) Respiratory Disorders: Asthma, COPD Cardiovascular Hx Cardiac Disorders: Yes Cardiac Disorders: Hypertension Neurological Hx Neurological Disorders: Yes Neurological Disorders: Neuropathy, TIA Reproductive System Hx Reproductive Disorders: No Sexually Transmitted Disease: No HIV/AIDS: No Female Reproductive Disorders: Denies, 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?) Cancer Hx Cancer: Yes Cancer: Lung Psychosocial Hx Psychiatric Problems: Yes Behavioral Health Disorders: Anxiety Integumentary HX Skin/Integumentary Disorder: No Blood Transfusions Hx Blood Disorders: No Adverse Reaction to a Blood Tr: No Family Medical History Family Medial History: Family history: Alzheimer's disease 03 MOTHER Family history: Diabetes mellitus 03 MOTHER 09 BROTHER Family history: Hypertension 03 MOTHER 09 BROTHER 09 SISTER Myocardial infarction 03 FATHER Physical Exam Vital Signs Vital Sign - Last 12Hours 05/08/17 05/08/17 05:49 05:50 Temp 97.8 Pulse 99 Resp 16 B/P (MAP) 161/70 O2 Delivery Room Air Capillary Refill : Less Than 3 Seconds General Appearance: No Apparent Distress, Cachetic HEENT: PERRL/EOMI Neck: Full Range of Motion, Normal Inspection, Non Tender, Supple Respiratory: No Accessory Muscle Use, No Respiratory Distress, Other (FAINT BREATH SOUNDS HEARD IN LEFT UPPER CHEST, OTHERWISE, NO OTHER LUNG SOUNDS HEARD ON LEFT. 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 Norm as Tested Skin: Normal Color, Warm/Dry Progress/Results/Core Measures Results/Orders Lab Results Laboratory Tests Test 05/08/17 05:55 Range/Units White Blood Count 12.8 H 4.3-11.0 10^3/uL Red Blood Count 3.51 L 4.35-5.85 10^6/uL Hemoglobin 9.1 L 11.5-16.0 G/DL Hematocrit 29 L 35-52 % Mean Corpuscular Volume 82 80-99 FL Mean Corpuscular Hemoglobin 26 25-34 PG Mean Corpuscular Hemoglobin Concent 32 32-36 G/DL Red Cell Distribution Width 14.3 10.0-14.5 % Platelet Count 546 H 130-400 10^3/uL Mean Platelet Volume 8.7 7.4-10.4 FL Neutrophils (%) (Auto) 86 H 42-75 % Lymphocytes (%) (Auto) 6 L 12-44 % Monocytes (%) (Auto) 8 0-12 % Eosinophils (%) (Auto) 1 0-10 % Basophils (%) (Auto) 0 0-10 % Neutrophils # (Auto) 10.9 H 1.8-7.8 X 10^3 Lymphocytes # (Auto) 0.8 L 1.0-4.0 X 10^3 Monocytes # (Auto) 1.0 0.0-1.0 X 10^3 Eosinophils # (Auto) 0.1 0.0-0.3 10^3/uL Basophils # (Auto) 0.0 0.0-0.1 10^3/uL Prothrombin Time 13.4 12.2-14.7 SEC INR Comment 1.1 0.8-1.4 Activated Partial Thromboplast Time 38 H 24-35 SEC Sodium Level 133 L 135-145 MMOL/L Potassium Level 3.1 L 3.6-5.0 MMOL/L Chloride Level 95 L 98-107 MMOL/L Carbon Dioxide Level 26 21-32 MMOL/L Anion Gap 12 5-14 MMOL/L Blood Urea Nitrogen 16 7-18 MG/DL Creatinine 0.63 0.60-1.30 MG/DL Estimat Glomerular Filtration Rate > 60 BUN/Creatinine Ratio 25 Glucose Level 145 H 70-105 MG/DL Calcium Level 9.0 8.5-10.1 MG/DL Magnesium Level 2.6 H 1.8-2.4 MG/DL Total Bilirubin 0.4 0.1-1.0 MG/DL Aspartate Amino Transf (AST/SGOT) 29 5-34 U/L Alanine Aminotransferase (ALT/SGPT) 28 0-55 U/L Alkaline Phosphatase 69 40-136 U/L Total Creatine Kinase 30 29-168 U/L Creatine Kinase MB 1.0 <6.6 NG/ML Troponin I < 0.30 <0.30 NG/ML B-Type Natriuretic Peptide 55.6 <100.0 PG/ML Total Protein 7.1 6.4-8.2 GM/DL Albumin 3.5 3.2-4.5 GM/DL Amylase Level 55 25-125 U/L Lipase 10 8-78 U/L My Orders Orders - NADEEN REYES DO Saline Lock/Iv-Start (05/08/17 06:12) Ekg Tracing (05/08/17 06:12) Monitor-Rhythm Ecg Trace Only (05/08/17 06:12) Amylase (05/08/17 06:12) BNP (05/08/17 06:12) Cbc With Automated Diff (05/08/17 06:12) Comprehensive Metabolic Panel (05/08/17 06:12) Creatine Kinase (05/08/17 06:12) Creatine Kinase Mb (05/08/17 06:12) Lipase (05/08/17 06:12) Magnesium (05/08/17 06:12) Protime With Inr (05/08/17 06:12) Partial Thromboplastin Time (05/08/17 06:12) Troponin I (05/08/17 06:12) Chest 1 View, Ap/Pa Only (05/08/17 06:12) Morphine Injection (Morphine Injection (05/08/17 06:12) Vital Signs/I&O Vital Sign - Last 12Hours 05/08/17 05/08/17 05:49 05:50 Temp 97.8 Pulse 99 Resp 16 B/P (MAP) 161/70 O2 Delivery Room Air Blood Pressure Mean: 100 Progress Note : Progress Note PT STATES SHE FEELS MUCH BETTER AFTER MORPHINE AND IS ANXIOUS TO GO HOME OFFERED TO GIVE IV FLUIDS TO CORRECT ELECTROLYTES--PT STATES SHE FREQUENTLY HAS LOW ELECTROLYTES, AND DECLINES ANY FLUIDS HERE. ECG Initial ECG Impression Time: 05:59 Initial ECG Rate: 96 Initial ECG Rhythm: Normal Sinus Initial ECG Comparisson: Unchanged Diagnostic Imaging Comments CXR--NEAR-COMPLETE OPACIFICATION OF LEFT THORAX --SLIGHTLY PROGRESSED FROM PREVIOUS--PER RADIOLOGIST REPORT @ 0700 Reviewed: Reviewed by Me Departure Impression Impression: Primary Impression: CHRONIC LEFT CHEST WALL PAIN FROM METASTATIC LUNG CANCER Additional Impressions: Electrolyte imbalance Chronic anemia Disposition: HOME, SELF-CARE Condition: Improved Departure-Patient Inst. Referrals: MANASA RODARTE DO (PCP/Family) Primary Care Physician Patient Instructions: Cancer Pain Syndromes (DC), Chest Pain That Is Not Caused by the Heart (DC), Managing Pain When You Have Cancer Add. Discharge Instructions: TAKE YOUR MEDICATIONS PRESCRIBED FOLLOW UP WITH ONCOLOGY SCHEDULED All discharge instructions reviewed with patient and/or family. Voiced understanding. NADEEN REYES DO May 08, 2017 06:33
[2017-05-08 06:45] LABS: ALANINE AMINOTRANSFERASE 28 U/L (0-55); ALBUMIN 3.5 GM/DL (3.2-4.5); AMYLASE 55 U/L (25-125); ANION GAP 12 MMOL/L (5-14); ASPARTATE AMINO TRANSFERASE 29 U/L (5-34); BILIRUBIN,TOTAL 0.4 MG/DL (0.1-1.0); BLOOD UREA NITROGEN 16 MG/DL (7-18); BUN/CREATININE RATIO 25; CARBON DIOXIDE 26 MMOL/L (21-32); CHLORIDE 95 MMOL/L (98-107); CREATINE KINASE 30 U/L (29-168); CREATININE SERUM 0.63 MG/DL (0.60-1.30); GFR ESTIMATED > 60; GLUCOSE 145 MG/DL (70-105); LIPASE 10 U/L (8-78); MAGNESIUM 2.6 MG/DL (1.8-2.4); POTASSIUM 3.1 MMOL/L (3.6-5.0); SODIUM 133 MMOL/L (135-145); TOTAL PROTEIN 7.1 GM/DL (6.4-8.2)
[2017-05-08 06:51] LABS: TROPONIN I < 0.30 NG/ML (<0.30)
--- NOTE | 2017-05-08 06:57 | Diagnostic Imaging Report ---
INDICATION: Chest pain, diarrhea currently on radiation.. TECHNIQUE: Single view chest 6:40 AM. CORRELATION STUDY: 01/26/2017, CT chest 05/01/2017. FINDINGS: There is again seen a rather significant opacification of a large portion of the left hemithorax. This appears to overall be perhaps slightly increased from prior imaging. There is a shift of the mediastinal structures into the left hemithorax with hyperinflation of the right lung which is clear. Right-sided Infusaport catheter is generally stable. Overlying monitor leads are present. IMPRESSION: Again noted is rather significant opacification of a large portion of the left hemithorax, likely owing to a consolidated lung and fluid. This does appear to be slightly progressed from previous imaging. Dictated by: Dictated on workstation # [id number]
[2017-05-08 07:20] VITALS: BP 154/66
--- OUTSIDE RECORDS SUMMARY | 2017-05-08 10:07 | XMS REPORT | Continuity of Care Document ---
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 10/10/2013 MANASA RODARTE DO Ot 250.00 DIAB LUCILLE WO COMPL, TYPE II OR UNSPEC TY 10/10/2013 MANASA RODARTE DO Ot 285.9 ANEMIA NOS 10/10/2013 MANASA RODARTE DO Ot 401.9 HYPERTENSION NOS 10/10/2013 MANASA RODARTE DO Ot 493.90 ASTHMA, UNSPECIFIED 10/10/2013 MANASA RODARTE DO Ot 787.20 DYSPHAGIA, UNSPECIFIED 10/10/2013 MANASA RODARTE DO Ot 790.1 ELEVATED SEDIMENT RATE 10/10/2013 MANASA RODARTE DO Ot 995.1 ANGIONEUROTIC EDEMA 10/10/2013 MANASA RODARTE DO Ot V87.2 CONTACT W SUSPECTED EXPOSURE OTH POTEN 05/04/2014 AVELINA LUGO DO Ot 493.90 ASTHMA, UNSPECIFIED 05/04/2014 AVELINA LUGO DO Ot 786.6 CHEST SWELLING/MASS/LUMP 05/26/2014 SILVANA BREAUX DO Ot 162.9 MAL PATI BRONCH/LUNG NOS 05/26/2014 SILVANA BREAUX DO Ot V58.69 OT MED,LT,CURRENT USE 08/09/2014 RYDER HIGUERA, VADIM Ot 162.9 MAL PATI BRONCH/LUNG NOS 08/09/2014 RYDER HIGUERA, VADIM Ot 250.00 DIAB LUCILLE WO COMPL, TYPE II OR UNSPEC TY 08/09/2014 VADIM SOLER MD Ot 300.00 ANXIETY STATE NOS 08/09/2014 VADIM SOLER MD Ot 496 CHR AIRWAY OBSTRUCT NEC 08/09/2014 VADIM SOLER MD Ot 784.42 DYSPHONIA 08/09/2014 VADIM SOLER MD Ot 787.20 DYSPHAGIA, UNSPECIFIED 08/09/2014 VADIM SOLER MD Ot V15.82 HISTORY OF TOBACCO USE 08/09/2014 VADIM SOLER MD Ot V58.11 ENCOUNTER FOR ANTINEOPLASTIC CHEMOTHERAP 08/09/2014 VADIM SOLER MD Ot V58.69 OT MED,LT,CURRENT USE 09/22/2014 VADIM SOLER MD Ot 162.9 09/22/2014 VADIM SOLER MD Ot 250.00 09/22/2014 VADIM SOLER MD Ot 300.00 09/22/2014 VADIM SOLER MD Ot 496 09/22/2014 VADIM SOLER MD Ot 784.42 09/22/2014 VADIM SOLER MD Ot 787.20 09/22/2014 VADIM SOLER MD Ot V15.82 09/22/2014 VADIM SOLER MD Ot V58.69 10/14/2014 ROSS MUNOZ SUPERVISING AIRPLANE PILOT Ot 162.9 10/14/2014 ROSS MUNOZ SUPERVISING AIRPLANE PILOT Ot 197.7 10/14/2014 ROSS MUNOZ SUPERVISING AIRPLANE PILOT Ot 250.00 10/14/2014 ROSS MUNOZ SUPERVISING AIRPLANE PILOT Ot 285.9 10/14/2014 ROSS MUNOZ SUPERVISING AIRPLANE PILOT Ot 401.9 10/14/2014 ROSS MUNOZ SUPERVISING AIRPLANE PILOT Ot 478.30 10/14/2014 ROSS MUNOZ SUPERVISING AIRPLANE PILOT Ot 496 10/14/2014 ROSS MUNOZ SUPERVISING AIRPLANE PILOT Ot 530.81 10/14/2014 ROSS MUNOZ SUPERVISING AIRPLANE PILOT Ot 784.42 10/14/2014 ROSS MUNOZ SUPERVISING AIRPLANE PILOT Ot V15.82 10/14/2014 ROSS MUNOZ SUPERVISING AIRPLANE PILOT Ot V58.69 10/24/2014 VADIM SOLER MD Ot 162.9 10/24/2014 VADIM SOLER MD Ot 250.00 10/24/2014 VADIM SOLER MD Ot 300.00 10/24/2014 XUN MD, BLOCK-ASHLEE Ot 496 10/24/2014 RYDER HIGUERA, BLOCK-ASHLEE Ot 784.42 10/24/2014 RYDER HIGUERA, BLOCK-ASHLEE Ot 787.20 10/24/2014 RYDER HIGUERA, BLOCK-ASHLEE Ot V15.82 10/24/2014 YRDER HIGUERA, BLOCK-ASHLEE Ot V58.11 10/24/2014 RYDER HIGUERA, BLOCK-ASHLEE Ot V58.69 10/25/2014 RYDER HIGUERA, BLOCK-ASHLEE Ot 162.9 10/25/2014 XUJeramie HIGUERA, BLOCK-ASHLEE Ot 250.00 10/25/2014 RYDER HIGUERA, BLOCK-ASHLEE Ot 300.00 10/25/2014 RYDER HIGUERA, BLOCK-ASHLEE Ot 496 10/25/2014 RYDER HIGUERA, BLOCK-ASHLEE Ot 784.42 10/25/2014 RYDER HIGUERA, BLOCK-ASHLEE Ot 787.20 10/25/2014 RYDER HIGUERA, BLOCK-ASHLEE Ot V15.82 10/25/2014 RYDER HIGUERA, BLOCK-ASHLEE Ot V58.11 10/25/2014 RYDER HIGUERA, BLOCK-ASHLEE Ot V58.69 10/25/2014 RYDER HIGUERA, BLOCK-ASHLEE Ot 162.9 10/25/2014 RYDER HIGUERA, BLOCK-ASHLEE Ot 250.00 10/25/2014 RYDER HIGUERA, BLOCK-ASHLEE Ot 300.00 10/25/2014 RYDER HIGUERA, BLOCK-ASHLEE Ot 496 10/25/2014 RYDER HIGUERA, BLOCK-ASHLEE Ot 784.42 10/25/2014 RYDER HIGUERA, BLOCK-ASHLEE Ot 787.20 10/25/2014 RYDER HIGUERA, BLOCK-ASHLEE Ot V15.82 10/25/2014 RYDER HIGUERA, BLOCK-ASHLEE Ot V58.11 10/25/2014 RYDER HIGUERA, BLOCK-ASHLEE Ot V58.69 10/25/2014 RYDER HIGUERA, BLOCK-ASHLEE Ot 162.9 10/25/2014 RYDER HIGUERA, BLOCK-ASHLEE Ot 250.00 10/25/2014 RYDER HIGUERA, BLOCK-ASHLEE Ot 300.00 10/25/2014 RYDER HIGUERA, BLOCK-ASHLEE Ot 496 10/25/2014 RYDER HIGUERA, BLOCK-ASHLEE Ot 784.42 10/25/2014 RYDER HIGUERA, BLOCK-ASHLEE Ot 787.20 10/25/2014 RYDER HIGUERA, BLOCK-ASHLEE Ot V15.82 10/25/2014 RYDER HIGUERA, VADIM Ot V58.11 10/25/2014 RYDER HIGUERA, VADIM Ot V58.69 11/14/2014 RYDER HIGUERA, VADIM Ot 162.9 MAL PATI BRONCH/LUNG NOS 11/14/2014 RYDER HIGUERA, VADIM Ot 250.00 DIAB LUCILLE WO COMPL, TYPE II OR UNSPEC TY 11/14/2014 RYDER HIGUERA, VADIM Ot 300.00 ANXIETY STATE NOS 11/14/2014 RYDER HIGUERA, VADIM Ot 496 CHR AIRWAY OBSTRUCT NEC 11/14/2014 RYDER HIGUERA, VADIM Ot 784.42 DYSPHONIA 11/14/2014 RYDER HIGUERA, VADIM Ot 787.20 DYSPHAGIA, UNSPECIFIED 11/14/2014 RYDER HIGUERA, VADIM Ot V15.82 HISTORY OF TOBACCO USE 11/14/2014 RYDER HIGUERA, VADIM Ot V58.11 ENCOUNTER FOR ANTINEOPLASTIC CHEMOTHERAP 11/14/2014 RYDER HIGUERA, VADIM Ot V58.69 OT MED,LT,CURRENT USE 11/16/2014 RYDER HIGUERA, VADIM Ot 162.9 11/16/2014 RYDER HIGUERA, VADIM Ot 250.00 11/16/2014 RYDER HIGUERA, VADIM Ot 300.00 11/16/2014 RYDER HIGUERA, VADIM Ot 496 11/16/2014 RYDER HIGUERA, VADIM Ot 784.42 11/16/2014 RYDER HIGUERA, VADIM Ot 787.20 11/16/2014 RYDER HIGUERA, VADIM Ot V15.82 11/16/2014 RYDER HIGUERA, VADIM Ot V58.11 11/16/2014 RYDER HIGUERA, VADIM Ot V58.69 11/16/2014 RYDER HIGUERA, VADIM Ot 162.9 11/16/2014 RYDER HIGUERA, VADIM Ot 250.00 11/16/2014 RYDER HIGUERA, VADIM Ot 300.00 11/16/2014 RYDER HIGUERA, VADIM Ot 496 11/16/2014 RYDER HIGUERA, VADIM Ot 784.42 11/16/2014 RYDER HIGUERA, VADIM Ot 787.20 11/16/2014 RYDER HIGUERA, VADIM Ot V15.82 11/16/2014 RYDER HIGUERA, BLOCK-ASHLEE Ot V58.11 11/16/2014 RYDER HIGUERA, BLOCK-ASHLEE Ot V58.69 11/16/2014 RYDER HIGUERA, BLOCK-ASHLEE Ot 162.9 11/16/2014 RYDER HIGUERA, BLOCK-ASHLEE Ot 250.00 11/16/2014 RYDER HIGUERA, BLOCK-ASHLEE Ot 300.00 11/16/2014 RYDER HIGUERA, BLOCK-ASHLEE Ot 496 11/16/2014 RYDER HIGUERA, BLOCK-ASHLEE Ot 784.42 11/16/2014 RYDER HIGUERA, BLOCK-ASHLEE Ot 787.20 11/16/2014 RYDER HIGUERA, BLOCK-ASHLEE Ot V15.82 11/16/2014 RYDER HIGUERA, BLOCK-ASHLEE Ot V58.11 11/16/2014 RYDER HIGUERA, BLOCK-ASHLEE Ot V58.69 11/17/2014 RYDER HIGUERA, BLOCK-ASHLEE Ot 162.9 11/17/2014 RYDER HIGUERA, BLOCK-ASHLEE Ot 250.00 11/17/2014 RYDER HIGUERA, BLOCK-ASHLEE Ot 300.00 11/17/2014 RYDER HIGUERA, BLOCK-ASHLEE Ot 496 11/17/2014 RYDER HIGUERA, BLOCK-ASHLEE Ot 784.42 11/17/2014 RYDER HIGUERA, BLOCK-ASHLEE Ot 787.20 11/17/2014 RYDER HIGUERA, BLOCK-ASHLEE Ot V15.82 11/17/2014 RYDER HIGUERA, BLOCK-ASHLEE Ot V58.11 11/17/2014 RYDER HIGUERA, BLOCK-ASHLEE Ot V58.69 12/21/2014 RYDER HIGUERA, BLOCK-ASHLEE Ot 162.9 12/29/2014 RYDER HIGUERA, BLOCK-ASHLEE Ot 162.9 01/03/2015 RYDER HIGUERA, BLOCK-ASHLEE Ot 162.9 01/03/2015 RYDER HIGUERA, BLOCK-ASHLEE Ot 250.00 01/03/2015 RYDER HIGUERA, BLOCK-ASHLEE Ot 300.00 01/03/2015 RYDER HIGUERA, BLOCK-ASHLEE Ot 496 01/03/2015 RYDER HIGUERA, BLOCK-ASHLEE Ot 784.42 01/03/2015 RYDER HIGUERA, BLOCK-ASHLEE Ot 787.20 01/03/2015 RYDER HIGUERA, BLOCK-ASHLEE Ot V15.82 01/03/2015 RYDER HIGUERA, BLOCK-ASHLEE Ot V58.69 02/02/2015 ROSS MUNOZ Ot 162.9 02/02/2015 ROSS MUNOZ SUPERVISING AIRPLANE PILOT Ot 197.0 02/02/2015 ROSS MUNOZ SUPERVISING AIRPLANE PILOT Ot 250.00 02/02/2015 ROSS MUNOZ SUPERVISING AIRPLANE PILOT Ot 285.9 02/02/2015 ROSS MUNOZ SUPERVISING AIRPLANE PILOT Ot 478.30 02/02/2015 ROSS MUNOZ SUPERVISING AIRPLANE PILOT Ot 496 02/02/2015 ROSS MUNOZ SUPERVISING AIRPLANE PILOT Ot 530.81 02/02/2015 ROSS MUNOZ SUPERVISING AIRPLANE PILOT Ot 784.42 02/02/2015 MUNOZROSS Sharp SUPERVISING AIRPLANE PILOT Ot V58.69 02/02/2015 MUNOZROSS Sharp SUPERVISING AIRPLANE PILOT Ot V87.41 02/07/2015 VADIM SOLER MD Ot 162.9 02/07/2015 VADIM SOLER MD Ot 250.00 02/07/2015 VADIM SOLER MD Ot 300.00 02/07/2015 VADIM SOLER MD Ot 496 02/07/2015 VADIM SOLER MD Ot 784.42 02/07/2015 VADIM SOLER MD Ot 787.20 02/07/2015 VADIM SOLER MD Ot V15.82 02/07/2015 VADIM SOLER MD Ot V58.69 02/14/2015 VADIM SOLER MD Ot 162.9 MAL PATI BRONCH/LUNG NOS 02/14/2015 VADIM SOLER MD Ot 250.00 DIAB LUCILLE WO COMPL, TYPE II OR UNSPEC TY 02/14/2015 VADIM SOLER MD Ot 300.00 ANXIETY STATE NOS 02/14/2015 VADIM SOLER MD Ot 496 CHR AIRWAY OBSTRUCT NEC 02/14/2015 VADIM SOLER MD Ot 784.42 DYSPHONIA 02/14/2015 VADIM SOLER MD Ot 787.20 DYSPHAGIA, UNSPECIFIED 02/14/2015 VADIM SOLER MD Ot V15.82 HISTORY OF TOBACCO USE 02/14/2015 VADIM SOLER MD Ot V58.11 ENCOUNTER FOR ANTINEOPLASTIC CHEMOTHERAP 02/14/2015 VADIM SOLER MD Ot V58.69 OT MED,LT,CURRENT USE 02/18/2015 XUN MD, BLOCK-ASHLEE Ot 162.9 02/18/2015 RYDER HIGUERA, BLOCK-ASHLEE Ot 368.9 02/18/2015 RYDER HIGUERA, BLOCK-ASHLEE Ot 695.9 02/18/2015 RYDER HIGUERA, BLOCK-ASHLEE Ot 782.3 02/18/2015 RYDER HIGUERA, BLOCK-ASHLEE Ot V40.1 02/18/2015 RYDER HIGUERA, BLOCK-ASHLEE Ot 162.9 02/18/2015 RYDER HIGUERA, BLOCK-ASHLEE Ot 368.9 02/18/2015 RYDER HIGUERA, BLOCK-ASHLEE Ot 695.9 02/18/2015 RYDER HIGUERA, BLOCK-ASHLEE Ot 782.3 02/18/2015 RYDER HIGUERA, BLOCK-ASHLEE Ot V40.1 02/21/2015 RYDER HIGUERA, BLOCK-ASHLEE Ot 162.9 02/21/2015 RYDER HIGUERA, BLOCK-ASHLEE Ot 250.00 02/21/2015 RYDER HIGUERA, BLOCK-ASHLEE Ot 300.00 02/21/2015 RYDER HIGUERA, BLOCK-ASHLEE Ot 496 02/21/2015 RYDER HIGUERA, BLOCK-ASHLEE Ot 784.42 02/21/2015 RYDER HIGUERA, BLOCK-ASHLEE Ot 787.20 02/21/2015 RYDER HIGUERA, BLOCK-ASHLEE Ot V15.82 02/21/2015 RYDER HIGUERA, UMAIR-ASHLEE Ot V58.69 02/21/2015 RYDER HIGUERA, BLOCK-ASHLEE Ot 162.9 02/21/2015 RYDER HIGUERA, BLOCK-ASHLEE Ot 250.00 02/21/2015 RYDER HIGUERA, BLOCK-ASHLEE Ot 300.00 02/21/2015 RYDER HIGUERA, BLOCK-ASHLEE Ot 496 02/21/2015 RYDER HIGUERA, BLOCK-ASHLEE Ot 784.42 02/21/2015 RYDER HIGUERA, BLOCK-ASHLEE Ot 787.20 02/21/2015 RYDER HIGUERA, BLOCK-ASHLEE Ot V15.82 02/21/2015 RYDER HIGUERA, UMAIR-ASHLEE Ot V58.69 02/22/2015 RYDER HIGUERA, BLOCK-ASHLEE Ot 162.9 02/22/2015 RYDER HIGUERA, BLOCK-ASHLEE Ot 250.00 02/22/2015 RYDER HIGUERA, BLOCK-ASHLEE Ot 300.00 02/22/2015 RYDER HIGUERA, UMAIR-ASHLEE Ot 496 02/22/2015 RYDER HIGUERA, BLOCK-ASHLEE Ot 784.42 02/22/2015 RYDER HIGUERA, BLOCK-ASHLEE Ot 787.20 02/22/2015 RYDER HIGUERA, BLOCK-ASHLEE Ot V15.82 02/22/2015 RYDER HIGUERA, BLOCK-ASHLEE Ot V58.69 02/22/2015 RYDER HIGUERA, BLOCK-ASHLEE Ot 162.9 02/22/2015 RYDER HIGUERA, BLOCK-ASHLEE Ot 250.00 02/22/2015 RYDER HIGUERA, BLOCK-ASHLEE Ot 300.00 02/22/2015 RYDER HIGUERA, BLOCK-ASHLEE Ot 496 02/22/2015 RYDER HIGUERA, BLOCK-ASHLEE Ot 784.42 02/22/2015 RYDER HIGUERA, BLOCK-ASHLEE Ot 787.20 02/22/2015 RYDER HIGUERA, BLOCK-ASHLEE Ot V15.82 02/22/2015 RYDER HIGUERA, BLOCK-ASHLEE Ot V58.11 02/22/2015 RYDER HIGUERA, BLOCK-ASHLEE Ot V58.69 02/22/2015 RYDER HIGUERA, BLOCK-ASHLEE Ot 162.9 02/22/2015 RYDER HIGUERA, BLOCK-ASHLEE Ot 250.00 02/22/2015 RYDER HIGUERA, BLOCK-ASHLEE Ot 300.00 02/22/2015 RYDER HIGUERA, BLOCK-ASHLEE Ot 496 02/22/2015 RYDER HIGUERA, BLOCK-ASHLEE Ot 784.42 02/22/2015 RYDER HIGUERA, BLOCK-ASHLEE Ot 787.20 02/22/2015 RYDER HIGUERA, BLOCK-ASHLEE Ot V15.82 02/22/2015 RYDER HIGUERA, BLOCK-ASHLEE Ot V58.11 02/22/2015 RYDER HIGUERA, BLOCK-ASHLEE Ot V58.69 03/07/2015 RYDER HIGUERA, BLOCK-ASHLEE Ot 162.9 03/07/2015 RYDER HIGUERA, BLOCK-ASHLEE Ot 250.00 03/07/2015 RYDER HIGUERA, BLOCK-ASHLEE Ot 300.00 03/07/2015 RYDER HIGUERA, BLOCK-ASHLEE Ot 496 03/07/2015 RYDER HIGUERA, BLOCK-ASHLEE Ot 784.42 03/07/2015 RYDER HIGUERA, BLOCK-ASHLEE Ot 787.20 03/07/2015 RYDER HIGUERA, BLOCK-ASHLEE Ot V15.82 03/07/2015 RYDER HIGUERA, BLOCK-ASHLEE Ot V58.11 03/07/2015 RYDER HIGUERA, BLOCK-ASHLEE Ot V58.69 03/08/2015 RYDER HIGUERA, BLOCK-ASHLEE Ot 162.9 03/08/2015 RYDER HIGUERA, BLOCK-ASHLEE Ot 368.9 03/08/2015 RYDER HIGUERA, LBOCK-ASHLEE Ot 695.9 03/08/2015 RYDER HIGUERA, BLOCK-ASHLEE Ot 782.3 03/08/2015 RYDER HIGUERA, BLOCK-ASHLEE Ot V40.1 03/31/2015 RYDER HIGUERA, BLOCK-ASHLEE Ot 162.9 03/31/2015 RYDER HIGUERA, BLOCK-ASHLEE Ot 368.9 03/31/2015 RYDER HIGUERA, BLOCK-ASHLEE Ot 695.9 03/31/2015 RYDER HIGUERA, BLOCK-ASHLEE Ot 782.3 03/31/2015 RYDER HIGUERA, BLOCK-ASHLEE Ot V40.1 04/10/2015 RYDER HIGUERA, BLOCK-ASHLEE Ot 162.9 04/10/2015 RYDER HIGUERA, BLOCK-ASHLEE Ot 250.00 04/10/2015 RYDER HIGUERA, BLOCK-ASHLEE Ot 300.00 04/10/2015 RYDER HIGUERA, BLOCK-ASHLEE Ot 496 04/10/2015 RYDER HIGUERA, BLOCK-ASHLEE Ot 784.42 04/10/2015 RYDER HIGUERA, BLOCK-ASHLEE Ot 787.20 04/10/2015 RYDER HIGUERA, BLOCK-ASHLEE Ot V15.82 04/10/2015 RYDER HIGUERA, BLOCK-ASHLEE Ot V58.11 04/10/2015 RYDER HIGUERA, BLOCK-ASHLEE Ot V58.69 04/21/2015 RYDER HIGUERA, BLOCK-ASHLEE Ot 162.9 04/21/2015 RYDER HIGUERA, BLOCK-ASHLEE Ot 368.9 04/21/2015 RYDER HIGUERA, BLOCK-ASHLEE Ot 695.9 04/21/2015 RYDER HIGUERA, BLOCK-ASHLEE Ot 782.3 04/21/2015 RYDER HIGUERA, BLOCK-ASHLEE Ot V40.1 04/25/2015 RYDER HIGUERA, BLOCK-ASHLEE Ot 162.9 04/25/2015 RYDER HIGUERA, BLOCK-ASHLEE Ot 250.00 04/25/2015 RYDER HIGUERA, BLOCK-ASHLEE Ot 300.00 04/25/2015 RYDER HIGUERA, BLOCK-ASHLEE Ot 496 04/25/2015 RYDER HIGUERA, BLOCK-ASHLEE Ot 784.42 04/25/2015 RYDER HIGUERA, BLOCK-ASHLEE Ot 787.20 04/25/2015 RYDER HIGUERA, BLOCK-ASHLEE Ot V15.82 04/25/2015 RYDER HIGUERA, VADIM Ot V58.11 04/25/2015 RYDER HIGUERA, VADIM Ot V58.69 04/26/2015 RYDER HIGUERA, UMAIR-ASHLEE Ot 162.9 04/26/2015 RYDER HIGUERA, UMAIR-ASHLEE Ot 368.9 04/26/2015 RYDER HIGUERA, UMAIR-ASHLEE Ot 695.9 04/26/2015 RYDER HIGUERA, VADIM Ot 782.3 04/26/2015 RYDER HIGUERA, VADIM Ot V40.1 05/02/2015 RYDER HIGUERA, VADIM Ot 162.9 05/02/2015 RYDER HIGUERA, VADIM Ot 511.9 05/05/2015 RYDER HIGUERA, VADIM Ot 162.9 05/05/2015 RYDER HIGUERA, VADIM Ot 511.9 05/08/2015 ALEXANDER ROSS Sharp SUPERVISING AIRPLANE PILOT Ot 162.9 05/08/2015 ALEXANDER ROSS S SUPERVISING AIRPLANE PILOT Ot 250.00 05/08/2015 MUNOZ, ROSS S SUPERVISING AIRPLANE PILOT Ot 285.9 05/08/2015 MUNOZ, ROSS S SUPERVISING AIRPLANE PILOT Ot 356.9 05/08/2015 MUNOZ, ROSS S SUPERVISING AIRPLANE PILOT Ot 401.9 05/08/2015 ALEXANDER ROSS S SUPERVISING AIRPLANE PILOT Ot 478.30 05/08/2015 ALEXANDER ROSS S SUPERVISING AIRPLANE PILOT Ot 496 05/08/2015 MUNOZ, ROSS S SUPERVISING AIRPLANE PILOT Ot 530.81 05/08/2015 ALEXANDER ROSS S SUPERVISING AIRPLANE PILOT Ot 784.42 05/08/2015 ALEXANDER ROSS S SUPERVISING AIRPLANE PILOT Ot V12.54 05/08/2015 ALEXANDER ROSS S SUPERVISING AIRPLANE PILOT Ot V58.69 05/18/2015 MUNOZ, ROSS S SUPERVISING AIRPLANE PILOT Ot 162.9 05/18/2015 MUNOZ ANA S SUPERVISING AIRPLANE PILOT Ot 250.00 05/18/2015 MUNOZ ROSS S SUPERVISING AIRPLANE PILOT Ot 285.9 05/18/2015 MUNOZ, ROSS S SUPERVISING AIRPLANE PILOT Ot 356.9 05/18/2015 MUNOZ, ROSS S SUPERVISING AIRPLANE PILOT Ot 401.9 05/18/2015 MUNOZ ROSS S SUPERVISING AIRPLANE PILOT Ot 478.30 05/18/2015 MUNOZ, ROSS S SUPERVISING AIRPLANE PILOT Ot 496 05/18/2015 ROSS MUNOZ SUPERVISING AIRPLANE PILOT Ot 530.81 05/18/2015 ROSS MUNOZ SUPERVISING AIRPLANE PILOT Ot 784.42 05/18/2015 ROSS MUNOZ SUPERVISING AIRPLANE PILOT Ot V12.54 05/18/2015 ROSS MUNOZ SUPERVISING AIRPLANE PILOT Ot V58.69 05/22/2015 RYDER HIGUERA, VADIM Ot 162.9 MAL PATI BRONCH/LUNG NOS 05/22/2015 RYDER HIGUERA, VADIM Ot 250.00 DIAB LUCILLE WO COMPL, TYPE II OR UNSPEC TY 05/22/2015 RYDER HIGUERA, VADIM Ot 300.00 ANXIETY STATE NOS 05/22/2015 RYDER HIGUERA, VADIM Ot 496 CHR AIRWAY OBSTRUCT NEC 05/22/2015 RYDER HIGUERA, VADIM Ot 784.42 DYSPHONIA 05/22/2015 RYDER HIGUERA, VADIM Ot 787.20 DYSPHAGIA, UNSPECIFIED 05/22/2015 RYDER HIGUERA, VADIM Ot V15.82 HISTORY OF TOBACCO USE 05/22/2015 RYDER HIGUERA, VADIM Ot V58.11 ENCOUNTER FOR ANTINEOPLASTIC CHEMOTHERAP 05/22/2015 RYDER HIGUERA, VADIM Ot V58.69 OT MED,LT,CURRENT USE 05/23/2015 RYDER HIGUERA, VADIM Ot 162.9 05/23/2015 RYDER HIGUERA, VADIM Ot 250.00 05/23/2015 RYDER HIGUERA, VADIM Ot 300.00 05/23/2015 RYDER HIGUERA, VADIM Ot 496 05/23/2015 RYDER HIGUERA, VADIM Ot 784.42 05/23/2015 RYDER HIGUERA, VADIM Ot 787.20 05/23/2015 RYDER HIGUERA, VADIM Ot V15.82 05/23/2015 RYDER HIGUERA, VADIM Ot V58.11 05/23/2015 RYDER HIGUERA, VADIM Ot V58.69 05/23/2015 RYDER HIGUERA, VADIM Ot 162.9 05/23/2015 RYDER HIGUERA, VADIM Ot 250.00 05/23/2015 RYDER HIGUERA, VADIM Ot 300.00 05/23/2015 RYDER HIGUERA, VADIM Ot 496 05/23/2015 RYDER HIGUERA, VADIM Ot 784.42 05/23/2015 RYDER HIGUERA, BLOCK-ASHLEE Ot 787.20 05/23/2015 RYDER HIGUERA, BLOCK-ASHLEE Ot V15.82 05/23/2015 RYDER HIGUERA, BLOCK-ASHLEE Ot V58.11 05/23/2015 RYDER HIGUERA, BLOCK-ASHLEE Ot V58.69 05/23/2015 RYDER HIGUERA, BLOCK-ASHLEE Ot 162.9 05/23/2015 RYDER HIGUERA, BLOCK-ASHLEE Ot 250.00 05/23/2015 RYDER HIGUERA, BLOCK-ASHLEE Ot 300.00 05/23/2015 RYDER HIGUERA, BLOCK-ASHLEE Ot 496 05/23/2015 RYDER HIGUERA, BLOCK-ASHLEE Ot 784.42 05/23/2015 RYDER HIGUERA, BLOCK-ASHLEE Ot 787.20 05/23/2015 RYDER HIGUERA, BLOCK-ASHLEE Ot V15.82 05/23/2015 RYDER HIGUERA, BLOCK-ASHLEE Ot V58.11 05/23/2015 RYDER HIGUERA, BLOCK-ASHLEE Ot V58.69 05/23/2015 RYDER HIGUERA, BLOCK-ASHLEE Ot 162.9 05/23/2015 RYDER HIGUERA, BLOCK-ASHLEE Ot 250.00 05/23/2015 RYDER HIGUERA, BLOCK-ASHLEE Ot 300.00 05/23/2015 RYDER HIGUERA, BLOCK-ASHLEE Ot 496 05/23/2015 RYDER HIGUERA, BLOCK-ASHLEE Ot 784.42 05/23/2015 RYDER HIGUERA, BLOCK-ASHLEE Ot 787.20 05/23/2015 RYDER HIGUERA, BLOCK-ASHLEE Ot V15.82 05/23/2015 RYDER HIGUERA, BLOCK-ASHLEE Ot V58.11 05/23/2015 RYDER HIGUERA, BLOCK-ASHLEE Ot V58.69 05/24/2015 RYDER HIGUERA, BLOCK-ASHLEE Ot 162.9 05/24/2015 RYDER HIGUERA, BLOCK-ASHLEE Ot 250.00 05/24/2015 RYDER HIGUERA, BLOCK-ASHLEE Ot 300.00 05/24/2015 RYDER HIGUERA, BLOCK-ASHLEE Ot 496 05/24/2015 RYDER HIGUERA, BLOCK-ASHLEE Ot 784.42 05/24/2015 RYDER HIGUERA, BLOCK-ASHLEE Ot 787.20 05/24/2015 RYDER HIGUERA, BLOCK-ASHLEE Ot V15.82 05/24/2015 RYDER HIGUERA, BLOCK-ASHLEE Ot V58.11 05/24/2015 RYDER HIGUERA, BLOCK-ASHLEE Ot V58.69 06/08/2015 RYDER HIGUERA, BLOCK-ASHLEE Ot 162.9 06/08/2015 RYDER HIGUERA, BLOCK-ASHLEE Ot 786.07 06/14/2015 RYDER HIGUERA, BLOCK-ASHLEE Ot 162.9 06/14/2015 RYDER HIGUERA, BLOCK-ASHLEE Ot 786.07 07/04/2015 RYDER HIGUERA, BLOCK-ASHLEE Ot 162.9 07/04/2015 RYDER HIGUERA, BLOCK-ASHLEE Ot 250.00 07/04/2015 RYDER HIGUERA, BLOCK-ASHLEE Ot 300.00 07/04/2015 RYDER HIGUERA, BLOCK-ASHLEE Ot 496 07/04/2015 RYDER HIGUERA, BLOCK-ASHLEE Ot 784.42 07/04/2015 RYDER HIGUERA, BLOCK-ASHLEE Ot 787.20 07/04/2015 RYDER HIGUERA, BLOCK-ASHLEE Ot V15.82 07/04/2015 RYDER HIGUERA, BLOCK-ASHLEE Ot V58.11 07/04/2015 RYDER HIGUERA, BLOCK-ASHLEE Ot V58.69 07/18/2015 RYDER HIGUERA, BLOCK-ASHLEE Ot 162.9 07/18/2015 RYDER HIGUERA, BLOCK-ASHLEE Ot 250.00 07/18/2015 RYDER HIGUERA, BLOCK-ASHLEE Ot 300.00 07/18/2015 RYDER HIGUERA, BLOCK-ASHLEE Ot 496 07/18/2015 RYDER HIGUERA, BLOCK-ASHLEE Ot 784.42 07/18/2015 RYDER HIGUERA, BLOCK-ASHLEE Ot 787.20 07/18/2015 RYDER HIGUERA, BLOCK-ASHLEE Ot V15.82 07/18/2015 RYDER HIGUERA, BLOCK-ASHLEE Ot V58.11 07/18/2015 RYDER HIGUERA, BLOCK-ASHLEE Ot V58.69 07/18/2015 RYDER HIGUERA, BLOCK-ASHLEE Ot 162.9 07/18/2015 RYDER HIGUERA, BLOCK-ASHLEE Ot 250.00 07/18/2015 RYDER HIGUERA, BLOCK-ASHLEE Ot 300.00 07/18/2015 RYDER HIGUERA, BLOCK-ASHLEE Ot 496 07/18/2015 RYDER HIGUERA, BLOCK-ASHLEE Ot 784.42 07/18/2015 RYDER HIGUERA, BLOCK-ASHLEE Ot 787.20 07/18/2015 RYDER HIGUERA, BLOCK-ASHLEE Ot V15.82 07/18/2015 RYDER HIGUERA, BLOCK-ASHLEE Ot V58.11 07/18/2015 RYDER HIGUERA, BLOCK-ASHLEE Ot V58.69 07/27/2015 RYDER HIGUERA, VADIM Ot 162.9 07/27/2015 RYDER HIGUERA, VADIM Ot 250.00 07/27/2015 RYDER HIGUERA, VADIM Ot 300.00 07/27/2015 RYDER HIGUERA, VADIM Ot 496 07/27/2015 RYDER HIGUERA, VADIM Ot 784.42 07/27/2015 RYDER HIGUERA, VADIM Ot 787.20 07/27/2015 RYDER HIGUERA, VADIM Ot V15.82 07/27/2015 RYDER HIGUERA, VADIM Ot V58.11 07/27/2015 RYDER HIGUERA, VADIM Ot V58.69 08/04/2015 Ot V76.12 08/04/2015 Ot 733.90 08/04/2015 Ot V76.12 08/04/2015 Ot V72.84 08/04/2015 MANASA RODARTE DO Ot V76.12 08/04/2015 MANASA RODARTE DO Ot 285.9 08/04/2015 MANASA RODARTE DO Ot 599.0 08/04/2015 DEEPTHI RODARTE [employer]PERVISING [employer]PL[employer] PILOT Ot 496 08/04/2015 DEEPTHI RODARTE SUPERVISING AIRPLANE PILOT Ot 786.2 08/04/2015 YENIFER RODARTEIA L SUPERVISING AIRPLANE PILOT Ot 793.19 08/04/2015 YENIFER RODARTEIA L SUPERVISING AIRPLANE PILOT Ot 786.09 08/04/2015 YENIFER RODARTEIA L SUPERVISING AIRPLANE PILOT Ot 786.6 08/04/2015 AVELINA LUGO DO Ot 197.0 08/04/2015 AVELINA LUGO DO Ot 493.90 08/04/2015 AVELINA LUGO DO Ot 784.42 08/04/2015 AVELINA LUGO DO Ot 786.6 08/04/2015 SILVANA BREAUX DO Ot V72.84 08/04/2015 ROSS MUNOZ SUPERVISING AIRPLANE PILOT Ot 162.9 08/04/2015 ROSS MUNOZ SUPERVISING AIRPLANE PILOT Ot 196.9 08/04/2015 ROSS MUNOZ SUPERVISING AIRPLANE PILOT Ot 197.7 08/04/2015 ROSS MUNOZ SUPERVISING AIRPLANE PILOT Ot 250.00 08/04/2015 ROSS MUNOZ SUPERVISING AIRPLANE PILOT Ot 285.9 08/04/2015 ROSS MUNOZ SUPERVISING AIRPLANE PILOT Ot 401.9 08/04/2015 ROSS MUNOZ S SUPERVISING AIRPLANE PILOT Ot 478.30 08/04/2015 ROSS MUNOZ S SUPERVISING AIRPLANE PILOT Ot 496 08/04/2015 ROSS MUNOZ S SUPERVISING AIRPLANE PILOT Ot 530.81 08/04/2015 ROSS MUNOZ S SUPERVISING AIRPLANE PILOT Ot 784.42 08/04/2015 ROSS MUNOZ S SUPERVISING AIRPLANE PILOT Ot V15.82 08/04/2015 ROSS MUNOZ S SUPERVISING AIRPLANE PILOT Ot V58.69 08/04/2015 Ot 162.9 08/04/2015 Ot 197.7 08/04/2015 Ot 250.00 08/04/2015 Ot 285.9 08/04/2015 Ot 401.9 08/04/2015 Ot 478.30 08/04/2015 Ot 496 08/04/2015 Ot 530.81 08/04/2015 Ot 784.42 08/04/2015 Ot V15.82 08/04/2015 Ot V58.69 08/04/2015 ROSS MUNOZ S SUPERVISING AIRPLANE PILOT Ot 162.9 08/04/2015 ROSS MUNOZ S SUPERVISING AIRPLANE PILOT Ot 162.9 08/04/2015 ROSS MUNOZ S SUPERVISING AIRPLANE PILOT Ot 197.7 08/04/2015 ROSS MUNOZ S SUPERVISING AIRPLANE PILOT Ot 250.00 08/04/2015 ROSS MUNOZ S SUPERVISING AIRPLANE PILOT Ot 285.9 08/04/2015 MUNOZROSS Sharp S SUPERVISING AIRPLANE PILOT Ot 401.9 08/04/2015 MUNOZROSS Sharp S SUPERVISING AIRPLANE PILOT Ot 478.30 08/04/2015 ROSS MUNOZ S SUPERVISING AIRPLANE PILOT Ot 496 08/04/2015 MUNOZROSS Sharp S SUPERVISING AIRPLANE PILOT Ot 530.81 08/04/2015 MUNOZROSS Sharp S SUPERVISING AIRPLANE PILOT Ot 784.42 08/04/2015 MUNOZROSS Sharp S SUPERVISING AIRPLANE PILOT Ot V15.82 08/04/2015 ROSS MUNOZ S SUPERVISING AIRPLANE PILOT Ot V58.69 08/04/2015 UAMIR SOLER MDASHLEE Ot 162.9 08/04/2015 MUNOZROSS Sharp S SUPERVISING AIRPLANE PILOT Ot 162.9 08/04/2015 MUNOZROSS S SUPERVISING AIRPLANE PILOT Ot 197.0 08/04/2015 MUNOZ, HILAH S SUPERVISING AIRPLANE PILOT Ot 250.00 08/04/2015 MUNOZROSS Sharp S SUPERVISING AIRPLANE PILOT Ot 285.9 08/04/2015 MUNOZROSS S SUPERVISING AIRPLANE PILOT Ot 478.30 08/04/2015 MUNOZROSS S SUPERVISING AIRPLANE PILOT Ot 496 08/04/2015 MUNOZROSS S SUPERVISING AIRPLANE PILOT Ot 530.81 08/04/2015 MUNOZROSS S SUPERVISING AIRPLANE PILOT Ot 784.42 08/04/2015 MUNOZROSS S SUPERVISING AIRPLANE PILOT Ot V58.69 08/04/2015 MUNOZROSS Sharp S SUPERVISING AIRPLANE PILOT Ot V87.41 08/04/2015 RYDER HIGUERA, BLOCK-ASHLEE Ot 162.9 08/04/2015 RYDER HIGUERA, BLOCK-ASHLEE Ot 368.9 08/04/2015 RYDER HIGUERA, BLOCK-ASHLEE Ot 695.9 08/04/2015 RYDER HIGUERA, BLOCK-ASHLEE Ot 782.3 08/04/2015 RYDER HIGUERA, BLOCK-ASHLEE Ot V40.1 08/04/2015 RYDER HIGUERA, BLOCK-ASHLEE Ot 162.9 08/04/2015 RYDER HIGUERA, BLOCK-ASHLEE Ot 368.9 08/04/2015 RYDER HIGUERA, BLOCK-ASHLEE Ot 695.9 08/04/2015 RYDER HIGUERA, BLOCKASHLEE Ot 782.3 08/04/2015 RYDER HIGUERA, BLOCK-ASHLEE Ot V40.1 08/04/2015 RYDER HIGUERA, BLOCK-ASHLEE Ot 162.9 08/04/2015 RYDER HIGUERA, BLOCK-ASHLEE Ot 511.9 08/04/2015 MUNOZROSS SUPERVISING AIRPLANE PILOT Ot 162.9 08/04/2015 MUNOZROSS S SUPERVISING AIRPLANE PILOT Ot 250.00 08/04/2015 MUNOZROSS S SUPERVISING AIRPLANE PILOT Ot 285.9 08/04/2015 MUNOZROSS S SUPERVISING AIRPLANE PILOT Ot 356.9 08/04/2015 MUNOZROSS S SUPERVISING AIRPLANE PILOT Ot 401.9 08/04/2015 MUNOZROSS S SUPERVISING AIRPLANE PILOT Ot 478.30 08/04/2015 MUNOZROSS S SUPERVISING AIRPLANE PILOT Ot 496 08/04/2015 MUNOZROSS S SUPERVISING AIRPLANE PILOT Ot 530.81 08/04/2015 MUNOZROSS S SUPERVISING AIRPLANE PILOT Ot 784.42 08/04/2015 ALEXANDERROSS S SUPERVISING AIRPLANE PILOT Ot V12.54 08/04/2015 ROSS MUNOZ SUPERVISING AIRPLANE PILOT Ot V58.69 08/04/2015 RYDER HIGUERA, VADIM Ot 162.9 08/04/2015 RYDER HIGUERA, VADIM Ot 786.07 08/04/2015 RYDER HIGUERA, VADIM Ot 162.9 08/04/2015 RYDER HIGUERA, VADIM Ot 250.00 08/04/2015 RYDER HIGUERA, VADIM Ot 300.00 08/04/2015 RYDER HIGUERA, VADIM Ot 496 08/04/2015 RYDER HIGUERA, VADIM Ot 784.42 08/04/2015 RYDER HIGUERA, VADIM Ot 787.20 08/04/2015 RYDER HIGUERA, VADIM Ot V15.82 08/04/2015 RYDER HIGUERA, VADIM Ot V58.11 08/04/2015 RYDER HIGUERA, VADIM Ot V58.69 08/09/2015 RYDER HIGUERA, VADIM Ot 162.9 MAL PATI BRONCH/LUNG NOS 08/09/2015 RYDER HIGUERA, VADIM Ot 250.00 DIAB LUCILLE WO COMPL, TYPE II OR UNSPEC TY 08/09/2015 RYDER HIGUERA, VADIM Ot 300.00 ANXIETY STATE NOS 08/09/2015 RYDER HIGUERA, VADIM Ot 496 CHR AIRWAY OBSTRUCT NEC 08/09/2015 RYDER HIGUERA, VADIM Ot 784.42 DYSPHONIA 08/09/2015 RYDER HIGUERA, VADIM Ot 787.20 DYSPHAGIA, UNSPECIFIED 08/09/2015 RYDER HIGUERA, VADIM Ot V15.82 HISTORY OF TOBACCO USE 08/09/2015 RYDER HIGUERA, VADIM Ot V58.11 ENCOUNTER FOR ANTINEOPLASTIC CHEMOTHERAP 08/09/2015 RYDER HIGUERA, VADIM Ot V58.69 OT MED,LT,CURRENT USE 08/14/2015 RYDER HIGUERA, VADIM Ot C34.90 08/14/2015 RYDER HIGUERA, VADIM Ot 162.9 08/14/2015 RYDER HIGUERA, VADIM Ot 250.00 08/14/2015 RYDER HIGUERA, VADIM Ot 300.00 08/14/2015 RYDER HIGUERA, VADIM Ot 496 08/14/2015 RYDER HIGUERA, VADIM Ot 784.42 08/14/2015 RYDER HIGUERA, BLOCK-ASHLEE Ot 787.20 08/14/2015 RYDER HIGUERA, BLOCK-ASHLEE Ot V15.82 08/14/2015 RYDER HIGUERA, BLOCK-ASHLEE Ot V58.11 08/14/2015 RYDER HIGUERA, BLOCK-ASHLEE Ot V58.69 08/15/2015 RYDER HIGUERA, BLOCK-ASHLEE Ot 162.9 08/15/2015 RYDER HIGUERA, BLOCK-ASHLEE Ot 250.00 08/15/2015 RYDER HIGUERA, BLOCK-ASHLEE Ot 300.00 08/15/2015 RYDER HIGUERA, BLOCK-ASHLEE Ot 496 08/15/2015 RYDER HIGUERA, BLOCK-ASHLEE Ot 784.42 08/15/2015 RYDER HIGUERA, BLOCK-ASHLEE Ot 787.20 08/15/2015 RYDER HIGUERA, BLOCK-ASHLEE Ot V15.82 08/15/2015 RYDER HIGUERA, BLOCK-ASHLEE Ot V58.11 08/15/2015 RYDER HIGUERA, BLOCK-ASHLEE Ot V58.69 09/04/2015 RYDER HIGUERA, BLOCK-ASHLEE Ot C34.90 09/06/2015 RYDER HIGUERA, BLOCK-ASHLEE Ot C34.90 09/12/2015 RYDER HIGUERA, BLOCK-ASHLEE Ot 162.9 09/12/2015 RYDER HIGUERA, BLOCK-ASHLEE Ot 250.00 09/12/2015 RYDER HIGUERA, BLOCK-ASHLEE Ot 300.00 09/12/2015 RYDER HIGUERA, BLOCK-ASHLEE Ot 496 09/12/2015 RYDER HIGUERA, BLOCK-ASHLEE Ot 784.42 09/12/2015 RYDER HIGUERA, BLOCK-ASHLEE Ot 787.20 09/12/2015 RYDER HIGUERA, BLOCK-ASHLEE Ot V15.82 09/12/2015 RYDER HIGUERA, BLOCK-ASHLEE Ot V58.11 09/12/2015 RYDER HIGUERA, BLOCK-ASHLEE Ot V58.69 10/27/2015 RYDER HIGUERA, BLOCK-ASHLEE Ot 162.9 10/27/2015 RYDER HIGUERA, BLOCK-ASHLEE Ot 250.00 10/27/2015 RYDER HIGUERA, BLOCK-ASHLEE Ot 300.00 10/27/2015 RYDER HIGUERA, BLOCK-ASHLEE Ot 496 10/27/2015 RYDER HIGUERA, BLOCK-ASHLEE Ot 784.42 10/27/2015 RYDER HIGUERA, BLOCK-ASHLEE Ot 787.20 10/27/2015 RYDER HIGUERA, BLOCK-ASHLEE Ot V15.82 10/27/2015 RYDER HIGUERA, VADIM Ot V58.11 10/27/2015 RYDER HIGUERA, VADIM Ot V58.69 11/13/2015 RYDER HIGUERA, VADIM Ot C34.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 11/13/2015 RYDER HIGUERA, VADIM Ot C34.92 MALIGNANT NEOPLASM OF UNSP PART OF LEFT 11/13/2015 RYDER HIGUERA, VADIM Ot D64.9 ANEMIA, UNSPECIFIED 11/13/2015 RYDER HIGUERA, VADIM Ot E11.9 TYPE 2 DIABETES MELLITUS WITHOUT COMPLIC 11/13/2015 RYDER HIGUERA, VADIM Ot F41.9 ANXIETY DISORDER, UNSPECIFIED 11/13/2015 RYDER HIGUERA, VADIM Ot J44.9 CHRONIC OBSTRUCTIVE PULMONARY DISEASE, U 11/13/2015 RYDER HIGUERA, VADIM Ot Z51.11 ENCOUNTER FOR ANTINEOPLASTIC CHEMOTHERAP 11/13/2015 RYDER HIGUERA, VADIM Ot Z87.891 PERSONAL HISTORY OF NICOTINE DEPENDENCE 11/21/2015 RYDER HIGUERA, VADIM Ot C34.91 11/21/2015 RYDER HIGUERA, VADIM Ot C34.92 11/21/2015 RYDER HIGUERA, VADIM Ot D64.9 11/21/2015 RYDER HIGUERA, VADIM Ot E11.9 11/21/2015 RYDER HIGUERA, VADIM Ot F41.9 11/21/2015 RYDER HIGUERA, VADIM Ot J44.9 11/21/2015 RYDER HIGUERA, VADIM Ot Z51.11 11/21/2015 RYDER HIGUERA, VADIM Ot Z87.891 01/04/2016 RYDER HIGUERA, VADIM Ot C34.91 01/04/2016 RYDER HIGUERA, VADIM Ot C34.92 01/04/2016 RYDER HIGUERA, VADIM Ot D64.9 01/04/2016 RYDER HIGUERA, VADIM Ot E11.9 01/04/2016 RYDER HIGUERA, VADIM Ot F41.9 01/04/2016 RYDER HIGUERA, VADIM Ot J44.9 01/04/2016 RYDER HIGUERA, VADIM Ot Z51.11 01/04/2016 RYDER HIGUERA, VADIM Ot Z87.891 01/25/2016 RYDER HIGUERA, BLOCK-ASHLEE Ot C34.91 01/25/2016 RYDER HIGUERA, BLOCK-ASHLEE Ot C34.92 01/25/2016 RYDER HIGUERA, BLOCK-ASHLEE Ot D64.9 01/25/2016 RYDER HIGUERA, BLOCK-ASHLEE Ot E11.9 01/25/2016 RYDER HIGUERA, BLOCK-ASHLEE Ot F41.9 01/25/2016 RYDER HIGUERA, BLOCK-ASHLEE Ot J44.9 01/25/2016 RYDER HIGUERA, BLOCK-ASHLEE Ot Z51.11 01/25/2016 RYDER HIGUERA, BLOCK-ASHLEE Ot Z87.891 01/30/2016 RYDER HIGUERA, BLOCK-ASHLEE Ot C34.91 01/30/2016 RYDER HIGUERA, BLOCK-ASHLEE Ot C34.92 01/30/2016 RYDER HIGUERA, BLOCK-ASHLEE Ot D64.9 01/30/2016 RYDER HIGUERA, BLOCK-ASHLEE Ot E11.9 01/30/2016 RYDER HIGUERA, BLOCK-ASHLEE Ot F41.9 01/30/2016 RYDER HIGUERA, UMAIR-ASHLEE Ot J44.9 01/30/2016 RYDER HIGUERA, BLOCK-ASHLEE Ot Z51.11 01/30/2016 RYDER HIGUERA, BLOCK-ASHLEE Ot Z87.891 02/05/2016 RYDER HIGUERA, BLOCK-ASHLEE Ot C34.91 02/05/2016 RYDER HIGUERA, UAMIR-ASHLEE Ot C34.92 02/05/2016 RYDER HIGUERA, BLOCK-ASHLEE Ot D64.9 02/05/2016 RYDER HIGUERA, BLOCK-ASHLEE Ot E11.9 02/05/2016 RYDER HIGUERA, BLOCK-AHSLEE Ot F41.9 02/05/2016 RYDER HIGUERA, BLOCK-ASHLEE Ot J44.9 02/05/2016 RYDER HIGUERA, BLOCK-ASHLEE Ot Z51.11 02/05/2016 RYDER HIGUERA, BLOCK-ASHLEE Ot Z87.891 02/13/2016 RYDER HIGUERA, BLOCK-ASHLEE Ot C34.91 02/13/2016 RYDER HIGUERA, BLOCK-ASHLEE Ot C34.92 02/13/2016 RYDER HIGUERA, BLOCK-ASHLEE Ot D64.9 02/13/2016 RYDER HIGUERA, BLOCK-ASHLEE Ot E11.9 02/13/2016 RYDER HIGUERA, BLOCK-ASHLEE Ot F41.9 02/13/2016 RYDER HIGUERA, BLOCK-ASHLEE Ot J44.9 02/13/2016 RYDER HIGUERA, VADIM Ot Z51.11 02/13/2016 RYDER HIGUERA, VADIM Ot Z87.891 02/19/2016 RYDER HIGUERA, VADIM Pederson C34.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 02/19/2016 RYDER HIGUERA, VADIM Ot C34.92 MALIGNANT NEOPLASM OF UNSP PART OF LEFT 02/19/2016 RYDER HIGUERA, VADIM Pederson D64.9 ANEMIA, UNSPECIFIED 02/19/2016 RYDER HIGUERA, VADIM Ot E11.9 TYPE 2 DIABETES MELLITUS WITHOUT COMPLIC 02/19/2016 RYDER HIGUERA, VADIM Ot F41.9 ANXIETY DISORDER, UNSPECIFIED 02/19/2016 RYDER HIGUERA, VADIM Pederson J44.9 CHRONIC OBSTRUCTIVE PULMONARY DISEASE, U 02/19/2016 RYDER HIGUERA, VADIM Pederson Z51.11 ENCOUNTER FOR ANTINEOPLASTIC CHEMOTHERAP 02/19/2016 RYDER HIGUERA, VADIM Pederson Z87.891 PERSONAL HISTORY OF NICOTINE DEPENDENCE 02/20/2016 RYDER HIGUERA, VADIM Ot C34.91 02/20/2016 RYDER HIGUERA, VADIM Ot C34.92 02/20/2016 RYDER HIGUERA, VADIM Ot D64.9 02/20/2016 RYDER HIGUERA, VADIM Ot E11.9 02/20/2016 RYDER HIGUERA, VADIM Ot F41.9 02/20/2016 RYDER HIGUERA, VADIM Ot J44.9 02/20/2016 RYDER HIGUERA, VADIM Ot Z51.11 02/20/2016 RYDER HIGUERA, VADIM Ot Z87.891 02/27/2016 RYDER HIGUERA, VADIM Pederson C34.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 02/27/2016 RYDER HIGUERA, VADIM Ot C34.92 MALIGNANT NEOPLASM OF UNSP PART OF LEFT 02/27/2016 RYDER HIGUERA, VADIM Pederson D64.9 ANEMIA, UNSPECIFIED 02/27/2016 RYDER HIGUERA, VADIM Ot E11.9 TYPE 2 DIABETES MELLITUS WITHOUT COMPLIC 02/27/2016 RYDER HIGUERA, VADIM Ot F41.9 ANXIETY DISORDER, UNSPECIFIED 02/27/2016 RYDER HIGUERA, VADIM Pederson J44.9 CHRONIC OBSTRUCTIVE PULMONARY DISEASE, U 02/27/2016 RYDER HIGUERA, VADIM Ot Z51.11 ENCOUNTER FOR ANTINEOPLASTIC CHEMOTHERAP 02/27/2016 RYDER HIGUERA, VADIM Ot Z87.891 PERSONAL HISTORY OF NICOTINE DEPENDENCE 03/05/2016 Ot V76.12 OTH SCREEN MAMMO-MALIGN NEOPLASM OF GI 03/05/2016 Ot 733.90 BONE CARTILAGE DIS NOS 03/05/2016 Ot V76.12 OTH SCREEN MAMMO-MALIGN NEOPLASM OF GI 03/05/2016 Ot V72.84 EXAM PRE-OPERATIVE NOS 03/05/2016 MANASA RODARTE DO Ot V76.12 OTH SCREEN MAMMO-MALIGN NEOPLASM OF GI 03/05/2016 MANASA RODARTE DO Ot 285.9 ANEMIA NOS 03/05/2016 MANASA RODARTE DO Ot 599.0 URIN TRACT INFECTION NOS 03/05/2016 DEEPTHI RODARTE SUPERVISING AIRPLANE PILOT Ot 496 CHR AIRWAY OBSTRUCT NEC 03/05/2016 DEEPTHI RODARTE SUPERVISING [employer]PL[employer] PILOT Ot 786.2 COUGH 03/05/2016 DEEPTHI RODARTE SUPERVIS[employer] PILOT Ot 793.19 OTHER NONSPECIFIC ABNORMAL FINDING OF ELIZ 03/05/2016 DEEPTHI RODARTE SUPERVISING [employer]PL[employer] PILOT Ot 786.09 RESPIRATORY ABNORM NEC 03/05/2016 DEEPTHI RODARTE SUPERVISING [employer]PLANE PILOT Ot 786.6 CHEST SWELLING/MASS/LUMP 03/05/2016 AVELINA LUGO DO Ot 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 03/05/2016 AVELINA LUGO DO Ot 493.90 ASTHMA, UNSPECIFIED 03/05/2016 AVELINA LUGO DO Ot 784.42 DYSPHONIA 03/05/2016 AVELINA LUGO DO Ot 786.6 CHEST SWELLING/MASS/LUMP 03/05/2016 SILVANA BREAUX DO Ot V72.84 EXAM PRE-OPERATIVE NOS 03/05/2016 ROSS MUNOZ [employer]PERVISING [employer]PL[employer] PILOT Ot 162.9 MAL PATI BRONCH/LUNG NOS 03/05/2016 ROSS MUNOZ SUPERVIS[employer]PL[employer] PILOT Ot 196.9 MAL PATI LYMPH NODE NOS 03/05/2016 ROSS MUNOZ [employer]PER[employer] PILOT Ot 197.7 SECOND MALIG PATI LIVER 03/05/2016 ROSS MUNOZ SUPERVISING [employer]PLANE PILOT Ot 250.00 DIAB LUCILLE WO COMPL, TYPE II OR UNSPEC TY 03/05/2016 MUNOZROSS Sharp S SUPERVIS[employer]PLANE PILOT Ot 285.9 ANEMIA NOS 03/05/2016 MUNOZROSS [employer] S [employer]PERVIS[employer]PL[employer] PILOT Ot 401.9 HYPERTENSION NOS 03/05/2016 MUNOZROSS Sharp S SUPERVISING [employer]PL[employer] PILOT Ot 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 03/05/2016 MUNOZROSS Sharp S SUPERVISING [employer]PLANE PILOT Ot 496 CHR AIRWAY OBSTRUCT NEC 03/05/2016 MUNOZ, HILAH S SUPERVISING AIRPLANE PILOT Ot 530.81 ESOPHAGEAL REFLUX 03/05/2016 MUNOZROSS Sharp S SUPERVIS[employer]PL[employer] PILOT Ot 784.42 DYSPHONIA 03/05/2016 MUNOZROSS [employer] S [employer]PERVISING [employer]PL[employer] PILOT Ot V15.82 HISTORY OF TOBACCO USE 03/05/2016 ROSS MUNOZ S SUPERVISING AIRPLANE PILOT Ot V58.69 OTH MED,LT,CURRENT USE 03/05/2016 Ot 162.9 MAL PATI BRONCH/LUNG NOS 03/05/2016 Ot 197.7 SECOND MALIG PATI LIVER 03/05/2016 Ot 250.00 DIAB LUCILLE WO COMPL, TYPE II OR UNSPEC TY 03/05/2016 Ot 285.9 ANEMIA NOS 03/05/2016 Ot 401.9 HYPERTENSION NOS 03/05/2016 Ot 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 03/05/2016 Ot 496 CHR AIRWAY OBSTRUCT NEC 03/05/2016 Ot 530.81 ESOPHAGEAL REFLUX 03/05/2016 Ot 784.42 DYSPHONIA 03/05/2016 Ot V15.82 HISTORY OF TOBACCO USE 03/05/2016 Ot V58.69 OTH MED,LT,CURRENT USE 03/05/2016 ROSS MUNOZ S SUPERVISING AIRPLANE PILOT Ot 162.9 MAL PATI BRONCH/LUNG NOS 03/05/2016 MUNOZROSS Sharp S SUPERVISING AIRPLANE PILOT Ot 162.9 MAL PATI BRONCH/LUNG NOS 03/05/2016 MUNOZ, HILAH S SUPERVISING AIRPLANE PILOT Ot 197.7 SECOND MALIG PATI LIVER 03/05/2016 MUNOZ, HILAH S SUPERVISING AIRPLANE PILOT Ot 250.00 DIAB LUCILLE WO COMPL, TYPE II OR UNSPEC TY 03/05/2016 MUNOZROSS [employer] S SUPERVIS[employer]PLANE PILOT Ot 285.9 ANEMIA NOS 03/05/2016 MUNOZ, HILAH S SUPERVISING AIRPLANE PILOT Ot 401.9 HYPERTENSION NOS 03/05/2016 ANA MUNOZAH S SUPERVISING AIRPLANE PILOT Ot 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 03/05/2016 MUNOZROSS Sharp S SUPERVISING AIRPLANE PILOT Ot 496 CHR AIRWAY OBSTRUCT NEC 03/05/2016 ROSS MUNOZ S SUPERVISING AIRPLANE PILOT Ot 530.81 ESOPHAGEAL REFLUX 03/05/2016 ROSS MUNOZ S SUPERVISING AIRPLANE PILOT Ot 784.42 DYSPHONIA 03/05/2016 ROSS MUNOZ S SUPERVISING AIRPLANE PILOT Ot V15.82 HISTORY OF TOBACCO USE 03/05/2016 ROSS MUNOZ S SUPERVISING AIRPLANE PILOT Ot V58.69 OTH MED,LT,CURRENT USE 03/05/2016 VADIM SOLER MD Ot 162.9 MAL PATI BRONCH/LUNG NOS 03/05/2016 MUNOZROSS [employer] S SUPERVISING AIRPLANE PILOT Ot 162.9 MAL PATI BRONCH/LUNG NOS 03/05/2016 ROSS MUNOZ S SUPERVISING AIRPLANE PILOT Ot 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 03/05/2016 ROSS MUNOZ S SUPERVISING AIRPLANE PILOT Ot 250.00 DIAB LUCILLE WO COMPL, TYPE II OR UNSPEC TY 03/05/2016 ROSS MUNOZ S SUPERVISING AIRPLANE PILOT Ot 285.9 ANEMIA NOS 03/05/2016 ROSS MUNOZ S SUPERVISING AIRPLANE PILOT Ot 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 03/05/2016 ROSS MUNOZ S SUPERVISING AIRPLANE PILOT Ot 496 CHR AIRWAY OBSTRUCT NEC 03/05/2016 ROSS MUNOZ S SUPERVISING AIRPLANE PILOT Ot 530.81 ESOPHAGEAL REFLUX 03/05/2016 ROSS MUNOZ S SUPERVISING AIRPLANE PILOT Ot 784.42 DYSPHONIA 03/05/2016 ROSS MUNOZ SUPERVISING [employer]PLANE PILOT Ot V58.69 OTH MED,LT,CURRENT USE 03/05/2016 ROSS MUNOZ S SUPERVISING AIRPLANE PILOT Ot V87.41 PERSONAL HISTORY OF ANTINEOPLASTIC CHEMO 03/05/2016 VADIM SOLER MD Ot 162.9 MAL PATI BRONCH/LUNG NOS 03/05/2016 VADIM SOLER MD Ot 368.9 VISUAL DISTURBANCE NOS 03/05/2016 VADIM SOLER MD Ot 695.9 ERYTHEMATOUS COND NOS 03/05/2016 VADIM SOLER MD Ot 782.3 EDEMA 03/05/2016 VADIM SOLER MD Ot V40.1 PROB WITH COMMUNICATION 03/05/2016 VADMI SOLER MD Ot 162.9 MAL PATI BRONCH/LUNG NOS 03/05/2016 VADIM SOLER MD Ot 368.9 VISUAL DISTURBANCE NOS 03/05/2016 VADIM SOLER MD Ot 695.9 ERYTHEMATOUS COND NOS 03/05/2016 VADIM SOLER MD Ot 782.3 EDEMA 03/05/2016 VADIM SOLER MD Ot V40.1 PROB WITH COMMUNICATION 03/05/2016 VADIM SOLER MD Ot 162.9 MAL PATI BRONCH/LUNG NOS 03/05/2016 VADIM SOLER MD Ot 511.9 PLEURAL EFFUSION NOS 03/05/2016 ROSS MUNOZ SUPERVISING [employer]PLANE PILOT Ot 162.9 MAL PATI BRONCH/LUNG NOS 03/05/2016 ROSS MUNOZ S SUPERVISING AIRPLANE PILOT Ot 250.00 DIAB LUCILLE WO COMPL, TYPE II OR UNSPEC TY 03/05/2016 ROSS MUNOZ S SUPERVISING AIRPLANE PILOT Ot 285.9 ANEMIA NOS 03/05/2016 ROSS MUNOZ S SUPERVISING AIRPLANE PILOT Ot 356.9 IDIO PERIPH NEURPTHY NOS 03/05/2016 ANA MUNOZAH S SUPERVISING AIRPLANE PILOT Ot 401.9 HYPERTENSION NOS 03/05/2016 ROSS MUNOZ S SUPERVISING AIRPLANE PILOT Ot 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 03/05/2016 ROSS MUNOZ S SUPERVISING AIRPLANE PILOT Ot 496 CHR AIRWAY OBSTRUCT NEC 03/05/2016 ROSS MUNOZ S SUPERVISING AIRPLANE PILOT Ot 530.81 ESOPHAGEAL REFLUX 03/05/2016 ROSS MUNOZ S SUPERVISING AIRPLANE PILOT Ot 784.42 DYSPHONIA 03/05/2016 ROSS MUNOZ S SUPERVISING AIRPLANE PILOT Ot V12.54 PERSONAL HX OF TIA, CEREBRAL INFARCTION 03/05/2016 ROSS MUNOZ S SUPERVISING AIRPLANE PILOT Ot V58.69 OTH MED,LT,CURRENT USE 03/05/2016 VADIM SOLER MD Ot 162.9 MAL PATI BRONCH/LUNG NOS 03/05/2016 VADIM SOLER MD Ot 786.07 WHEEZING 03/05/2016 VADIM SOLER MD Ot C34.90 MALIGNANT NEOPLASM OF UNSP PART OF UNSP 03/05/2016 VADIM SOLER MD Ot C34.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 03/05/2016 VADIM SOLER MD Ot C34.92 MALIGNANT NEOPLASM OF UNSP PART OF LEFT 03/05/2016 VADIM SOLER MD Ot D64.9 ANEMIA, UNSPECIFIED 03/05/2016 VADIM SOLER MD Ot E11.9 TYPE 2 DIABETES MELLITUS WITHOUT COMPLIC 03/05/2016 VADIM SOLER MD Ot F41.9 ANXIETY DISORDER, UNSPECIFIED 03/05/2016 VADIM SOLER MD Ot J44.9 CHRONIC OBSTRUCTIVE PULMONARY DISEASE, U 03/05/2016 VADIM SOLER MD Ot Z51.11 ENCOUNTER FOR ANTINEOPLASTIC CHEMOTHERAP 03/05/2016 VADIM SOLER MD Ot Z87.891 PERSONAL HISTORY OF NICOTINE DEPENDENCE 03/06/2016 VADIM SOLER MD Ot C34.92 MALIGNANT NEOPLASM OF UNSP PART OF LEFT 03/12/2016 VADIM SOLER MD, Ot C34.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 03/12/2016 VADIM SOLER MD, Ot C34.92 MALIGNANT NEOPLASM OF UNSP PART OF LEFT 03/12/2016 VADIM SOLER MD, Ot D64.9 ANEMIA, UNSPECIFIED 03/12/2016 VADIM SOLER MD Ot E11.9 TYPE 2 DIABETES MELLITUS WITHOUT COMPLIC 03/12/2016 VADIM SOLER MD Ot F41.9 ANXIETY DISORDER, UNSPECIFIED 03/12/2016 VADIM SOLER MD, Ot J44.9 CHRONIC OBSTRUCTIVE PULMONARY DISEASE, U 03/12/2016 VADIM SOLER MD Ot Z51.11 ENCOUNTER FOR ANTINEOPLASTIC CHEMOTHERAP 03/12/2016 VADIM SOLER MD Ot Z87.891 PERSONAL HISTORY OF NICOTINE DEPENDENCE 03/16/2016 VADIM SOLER MD, Ot C34.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 03/16/2016 VADIM SOLER MD Ot C34.92 MALIGNANT NEOPLASM OF UNSP PART OF LEFT 03/16/2016 VADIM SOLER MD, Ot D64.9 ANEMIA, UNSPECIFIED 03/16/2016 VADIM SOLER MD Ot E11.9 TYPE 2 DIABETES MELLITUS WITHOUT COMPLIC 03/16/2016 VADIM SOLER MD Ot F41.9 ANXIETY DISORDER, UNSPECIFIED 03/16/2016 VADIM SOLER MD, Ot J44.9 CHRONIC OBSTRUCTIVE PULMONARY DISEASE, U 03/16/2016 VADIM SOLER MD Ot Z51.11 ENCOUNTER FOR ANTINEOPLASTIC CHEMOTHERAP 03/16/2016 VADIM SOLER MD Ot Z87.891 PERSONAL HISTORY OF NICOTINE DEPENDENCE 03/16/2016 VADIM SOLER MD Ot C34.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 03/16/2016 VADIM SOLER MD Ot C34.92 MALIGNANT NEOPLASM OF UNSP PART OF LEFT 03/16/2016 VADIM SOLER MD, Ot D64.9 ANEMIA, UNSPECIFIED 03/16/2016 VADIM SOLER MD, Ot E11.9 TYPE 2 DIABETES MELLITUS WITHOUT COMPLIC 03/16/2016 VADIM SOLER MD, Ot F41.9 ANXIETY DISORDER, UNSPECIFIED 03/16/2016 VADIM SOLER MD, Ot J44.9 CHRONIC OBSTRUCTIVE PULMONARY DISEASE, U 03/16/2016 VADIM SOLER MD, Ot Z51.11 ENCOUNTER FOR ANTINEOPLASTIC CHEMOTHERAP 03/16/2016 VADIM SOLER MD, Ot Z87.891 PERSONAL HISTORY OF NICOTINE DEPENDENCE 03/16/2016 VADIM SOLER MD, Ot C34.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 03/16/2016 VADIM SOLER MD, Ot C34.92 MALIGNANT NEOPLASM OF UNSP PART OF LEFT 03/16/2016 VADIM SOLER MD, Ot D64.9 ANEMIA, UNSPECIFIED 03/16/2016 VADIM SOLER MD, Ot E11.9 TYPE 2 DIABETES MELLITUS WITHOUT COMPLIC 03/16/2016 VADIM SOLER MD, Ot1.9 ANXIETY DISORDER, UNSPECIFIED 03/16/2016 VADIM SOLER MD, Ot J44.9 CHRONIC OBSTRUCTIVE PULMONARY DISEASE, U 03/16/2016 VADIM SOLER MD, Ot Z51.11 ENCOUNTER FOR ANTINEOPLASTIC CHEMOTHERAP 03/16/2016 VADIM SOLER MD, Ot Z87.891 PERSONAL HISTORY OF NICOTINE DEPENDENCE 03/16/2016 VADIM SOLER MD, Ot C34.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 03/16/2016 VADIM SOLER MD, Ot C34.92 MALIGNANT NEOPLASM OF UNSP PART OF LEFT 03/16/2016 VADIM SOLER MD, Ot D64.9 ANEMIA, UNSPECIFIED 03/16/2016 VADIM SOLER MD, Ot E11.9 TYPE 2 DIABETES MELLITUS WITHOUT COMPLIC 03/16/2016 VADIM SOLER MD, Ot F41.9 ANXIETY DISORDER, UNSPECIFIED 03/16/2016 VADIM SOLER MD, Ot J44.9 CHRONIC OBSTRUCTIVE PULMONARY DISEASE, U 03/16/2016 VADIM SOLER MD, Ot Z51.11 ENCOUNTER FOR ANTINEOPLASTIC CHEMOTHERAP 03/16/2016 VADIM SOLER MD Ot Z87.891 PERSONAL HISTORY OF NICOTINE DEPENDENCE 03/17/2016 VADIM SOLER MD Ot C34.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 03/17/2016 VADIM SOLER MD Ot C34.92 MALIGNANT NEOPLASM OF UNSP PART OF LEFT 03/17/2016 VADIM SOLER MD Ot D64.9 ANEMIA, UNSPECIFIED 03/17/2016 VADIM SOLER MD Ot E11.9 TYPE 2 DIABETES MELLITUS WITHOUT COMPLIC 03/17/2016 VADIM SOLER MD Ot F41.9 ANXIETY DISORDER, UNSPECIFIED 03/17/2016 VADIM SOLER MD Ot J44.9 CHRONIC OBSTRUCTIVE PULMONARY DISEASE, U 03/17/2016 VADIM SOLER MD Ot Z51.11 ENCOUNTER FOR ANTINEOPLASTIC CHEMOTHERAP 03/17/2016 VADIM SOLER MD Ot Z87.891 PERSONAL HISTORY OF NICOTINE DEPENDENCE 03/19/2016 VADIM SOLER MD Ot C34.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 03/19/2016 VADIM SOLER MD Ot C34.92 MALIGNANT NEOPLASM OF UNSP PART OF LEFT 03/19/2016 VADIM SOLER MD Ot D64.9 ANEMIA, UNSPECIFIED 03/19/2016 VADIM SOLER MD Ot E11.9 TYPE 2 DIABETES MELLITUS WITHOUT COMPLIC 03/19/2016 VADIM SOLER MD Ot F41.9 ANXIETY DISORDER, UNSPECIFIED 03/19/2016 VADIM SOLER MD Ot J44.9 CHRONIC OBSTRUCTIVE PULMONARY DISEASE, U 03/19/2016 VADIM SOLER MD Ot Z51.11 ENCOUNTER FOR ANTINEOPLASTIC CHEMOTHERAP 03/19/2016 VADIM SOLER MD Ot Z87.891 PERSONAL HISTORY OF NICOTINE DEPENDENCE 03/27/2016 VADIM SOLER MD Ot C34.92 MALIGNANT NEOPLASM OF UNSP PART OF LEFT 04/05/2016 VADIM SOLER MD Ot C34.92 MALIGNANT NEOPLASM OF UNSP PART OF LEFT 05/20/2016 VADIM SOLER MD Ot C34.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 05/20/2016 VADIM SOLER MD Ot C34.92 MALIGNANT NEOPLASM OF UNSP PART OF LEFT 05/20/2016 VADIM SOLER MD Ot D64.9 ANEMIA, UNSPECIFIED 05/20/2016 VADIM SOLER MD Ot E11.9 TYPE 2 DIABETES MELLITUS WITHOUT COMPLIC 05/20/2016 VADIM SOLER MD, Ot F41.9 ANXIETY DISORDER, UNSPECIFIED 05/20/2016 VADIM SOLER MD, Ot J44.9 CHRONIC OBSTRUCTIVE PULMONARY DISEASE, U 05/20/2016 VADIM SOLER MD Ot Z51.11 ENCOUNTER FOR ANTINEOPLASTIC CHEMOTHERAP 05/20/2016 VADIM SOLER MD Ot Z87.891 PERSONAL HISTORY OF NICOTINE DEPENDENCE 05/27/2016 VADIM SOLER MD Ot C34.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 05/27/2016 VADIM SOLER MD Ot C34.92 MALIGNANT NEOPLASM OF UNSP PART OF LEFT 05/27/2016 VADIM SOLER MD, Ot D64.9 ANEMIA, UNSPECIFIED 05/27/2016 VADIM SOLER MD, Ot E11.9 TYPE 2 DIABETES MELLITUS WITHOUT COMPLIC 05/27/2016 VADIM SOLER MD, Ot F41.9 ANXIETY DISORDER, UNSPECIFIED 05/27/2016 VADIM SOLER MD, Ot J44.9 CHRONIC OBSTRUCTIVE PULMONARY DISEASE, U 05/27/2016 VADIM SOLER MD Ot Z51.0 ENCOUNTER FOR ANTINEOPLASTIC RADIATION T 05/27/2016 VADIM SOLER MD Ot Z51.11 ENCOUNTER FOR ANTINEOPLASTIC CHEMOTHERAP 05/27/2016 VADIM SOLER MD, Ot Z87.891 PERSONAL HISTORY OF NICOTINE DEPENDENCE 06/21/2016 VADIM SOLER MD Ot C34.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 06/21/2016 VADIM SOLER MD Ot C34.92 MALIGNANT NEOPLASM OF UNSP PART OF LEFT 06/21/2016 VADIM SOLER MD Ot D64.9 ANEMIA, UNSPECIFIED 06/21/2016 VADIM SOLER MD Ot E11.9 TYPE 2 DIABETES MELLITUS WITHOUT COMPLIC 06/21/2016 VADIM SOLER MD Ot F41.9 ANXIETY DISORDER, UNSPECIFIED 06/21/2016 VADIM SOLER MD Ot J44.9 CHRONIC OBSTRUCTIVE PULMONARY DISEASE, U 06/21/2016 VADIM SOLER MD Ot Z51.0 ENCOUNTER FOR ANTINEOPLASTIC RADIATION T 06/21/2016 RYDER HIGUERA, VADIM Ot Z87.891 PERSONAL HISTORY OF NICOTINE DEPENDENCE 2016 RYDER HIGUERA, VADIM Ot 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 NEOPLASM OF UPPER LOBE, LEFT B 07/11/2016 Ot 733.90 BONE CARTILAGE DIS NOS 07/11/2016 Ot V76.12 OTH SCREEN MAMMO-MALIGN NEOPLASM OF GI 07/11/2016 Ot V72.84 EXAM PRE-OPERATIVE NOS 07/11/2016 MANASA RODARTE DO Ot V76.12 OTH SCREEN MAMMO-MALIGN NEOPLASM OF GI 07/11/2016 MANASA RODARTE DO Ot 285.9 ANEMIA NOS 07/11/2016 MANASA RODARTE DO Ot 599.0 URIN TRACT INFECTION NOS 07/11/2016 DEEPTHI RODARTE [employer] PILOT Ot 496 CHR AIRWAY OBSTRUCT NEC 07/11/2016 DEEPTHI RODARTE [employer] PILOT Ot 786.2 COUGH 07/11/2016 DEEPTHI RODARTE [employer] PILOT Ot 793.19 OTHER NONSPECIFIC ABNORMAL FINDING OF ELIZ 07/11/2016 DEEPTHI RODARTE [employer] PILOT Ot 786.09 RESPIRATORY ABNORM NEC 07/11/2016 DEEPTHI RODARTE [employer] PILOT Ot 786.6 CHEST SWELLING/MASS/LUMP 07/11/2016 AVELINA LUGO DO Ot 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 07/11/2016 AVELINA LUGO DO Ot 493.90 ASTHMA, UNSPECIFIED 07/11/2016 AVELINA LUGO DO Ot 784.42 DYSPHONIA 07/11/2016 AVELINA LUGO DO Ot 786.6 CHEST SWELLING/MASS/LUMP 07/11/2016 SILVANA BREAUX DO Ot V72.84 EXAM PRE-OPERATIVE NOS 07/11/2016 ROSS MUNOZ [employer] PILOT Ot 162.9 MAL PATI BRONCH/LUNG NOS 07/11/2016 ROSS MUNOZ [employer] PILOT Ot 196.9 MAL PATI LYMPH NODE NOS 07/11/2016 ROSS MUNOZ [employer] PILOT Ot 197.7 SECOND MALIG PATI LIVER 07/11/2016 ROSS MUNOZ [employer] PILOT Ot 250.00 DIAB LUCILLE WO COMPL, TYPE II OR UNSPEC TY 07/11/2016 ROSS MUNOZ [employer] PILOT Ot 285.9 ANEMIA NOS 07/11/2016 MUNOZROSS [employer] S [employer] PILOT Ot 401.9 HYPERTENSION NOS 07/11/2016 [employer]UN[employer] PILOT Ot 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 07/11/2016 MUN[employer] S [employer] PILOT Ot 496 CHR AIRWAY OBSTRUCT NEC 07/11/2016 [employer]UN[employer] PILOT Ot 530.81 ESOPHAGEAL REFLUX 07/11/2016 MUN[employer]ZROSS [employer] PILOT Ot 784.42 DYSPHONIA 07/11/2016 [employer] PILOT Ot V15.82 HISTORY OF TOBACCO USE 07/11/2016 MUN[employer] PILOT Ot V58.69 OTH MED,LT,CURRENT USE 07/11/2016 Ot 162.9 MAL PATI BRONCH/LUNG NOS 07/11/2016 Ot 197.7 SECOND MALIG PATI LIVER 07/11/2016 Ot 250.00 DIAB LUCILLE WO COMPL, TYPE II OR UNSPEC TY 07/11/2016 Ot 285.9 ANEMIA NOS 07/11/2016 Ot 401.9 HYPERTENSION NOS 07/11/2016 Ot 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 07/11/2016 Ot 496 CHR AIRWAY OBSTRUCT NEC 07/11/2016 Ot 530.81 ESOPHAGEAL REFLUX 07/11/2016 Ot 784.42 DYSPHONIA 07/11/2016 Ot V15.82 HISTORY OF TOBACCO USE 07/11/2016 Ot V58.69 OTH MED,LT,CURRENT USE 07/11/2016 ROSS MUNOZ S [employer]VIS[employer] PILOT Ot 162.9 MAL PATI BRONCH/LUNG NOS 07/11/2016 M[employer] PILOT Ot 162.9 MAL PATI BRONCH/LUNG NOS 07/11/2016 [employer] PILOT Ot 197.7 SECOND MALIG PATI LIVER 07/11/2016 [employer] PILOT Ot 250.00 DIAB LUCILLE WO COMPL, TYPE II OR UNSPEC TY 07/11/2016 [employer] PILOT Ot 285.9 ANEMIA NOS 07/11/2016 [employer] PILOT Ot 401.9 HYPERTENSION NOS 07/11/2016 ANA MUNOZAH S SUPERVISING [employer] PILOT Ot 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 07/11/2016 ROSS MUNOZ S [employer]PERVISING [employer]PLANE PILOT Ot 496 CHR AIRWAY OBSTRUCT NEC 07/11/2016 MUNOZ, HILAH S SUPERVISING AIRPLANE PILOT Ot 530.81 ESOPHAGEAL REFLUX 07/11/2016 ROSS MUNOZ S SUPERVIS[employer]PL[employer] PILOT Ot 784.42 DYSPHONIA 07/11/2016 ROSS MUNOZ [employer] PILOT Ot V15.82 HISTORY OF TOBACCO USE 07/11/2016 ROSS MUNOZ [employer] PILOT Ot V58.69 OTH MED,LT,CURRENT USE 07/11/2016 VADIM SOLER MD Ot 162.9 MAL PATI BRONCH/LUNG NOS 07/11/2016 [employer] PILOT Ot 162.9 MAL PATI BRONCH/LUNG NOS 07/11/2016 ROSS MUNOZ S SUPERVISING [employer]PL[employer] PILOT Ot 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 07/11/2016 ROSS MUNOZ S SUPERVISING AIRPLANE PILOT Ot 250.00 DIAB LUCILLE WO COMPL, TYPE II OR UNSPEC TY 07/11/2016 ROSS MUNOZ S [employer] PILOT Ot 285.9 ANEMIA NOS 07/11/2016 ANA MUNOZLUCERO S SUPERVISING AIRPLANE PILOT Ot 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 07/11/2016 ROSS MUNOZ S SUPERVISING [employer]PL[employer] PILOT Ot 496 CHR AIRWAY OBSTRUCT NEC 07/11/2016 ROSS MUNOZ S SUPERVISING [employer]PLANE PILOT Ot 530.81 ESOPHAGEAL REFLUX 07/11/2016 ROSS MUNOZ S SUPERVISING AIRPL[employer] PILOT Ot 784.42 DYSPHONIA 07/11/2016 ROSS MUNOZ [employer] PILOT Ot V58.69 OTH MED,LT,CURRENT USE 07/11/2016 ANA MUNOZLUCERO S SUPERVISING AIRPLANE PILOT Ot V87.41 PERSONAL HISTORY OF ANTINEOPLASTIC CHEMO 07/11/2016 VADIM SOLER MD Ot 162.9 MAL PATI BRONCH/LUNG NOS 07/11/2016 VADIM SOLER MD Ot 368.9 VISUAL DISTURBANCE NOS 07/11/2016 VADIM SOLER MD Ot 695.9 ERYTHEMATOUS COND NOS 07/11/2016 VADIM SOLER MD Ot 782.3 EDEMA 07/11/2016 VADIM SOLER MD Ot V40.1 PROB WITH COMMUNICATION 07/11/2016 VADIM SOLER MD Ot 162.9 MAL PATI BRONCH/LUNG NOS 07/11/2016 VADIM SOLER MD Ot 368.9 VISUAL DISTURBANCE NOS 07/11/2016 VADIM SOLER MD Ot 695.9 ERYTHEMATOUS COND NOS 07/11/2016 VADIM SOLER MD Ot 782.3 EDEMA 07/11/2016 VADIM SOLER MD Ot V40.1 PROB WITH COMMUNICATION 07/11/2016 VADIM SOLER MD Ot 162.9 MAL PATI BRONCH/LUNG NOS 07/11/2016 VADIM SOLER MD Ot 511.9 PLEURAL EFFUSION NOS 07/11/2016 ROSS MUNOZ SU[employer]VIS[employer]PL[employer] PILOT Ot 162.9 MAL PATI BRONCH/LUNG NOS 07/11/2016 ROSS MUNOZ S SUPERVISING AIRPLANE PILOT Ot 250.00 DIAB LUCILLE WO COMPL, TYPE II OR UNSPEC TY 07/11/2016 ROSS MUNOZ S SUPERVISING AIRPLANE PILOT Ot 285.9 ANEMIA NOS 07/11/2016 ROSS MUNOZ S SUPERVISING AIRPLANE PILOT Ot 356.9 IDIO PERIPH NEURPTHY NOS 07/11/2016 ROSS MUONZ S SUPERVISING AIRPLANE PILOT Ot 401.9 HYPERTENSION NOS 07/11/2016 ROSS MUNOZ S SUPERVISING AIRPLANE PILOT Ot 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 07/11/2016 ROSS MUNOZ S SUPERVISING AIRPLANE PILOT Ot 496 CHR AIRWAY OBSTRUCT NEC 07/11/2016 ROSS MUNOZ S SUPERVISING AIRPLANE PILOT Ot 530.81 ESOPHAGEAL REFLUX 07/11/2016 ROSS MUNOZ S SUPERVISING AIRPLANE PILOT Ot 784.42 DYSPHONIA 07/11/2016 ROSS MUNOZ S SUPERVISING AIRPL[employer] PILOT Ot V12.54 PERSONAL HX OF TIA, CEREBRAL INFARCTION 07/11/2016 ROSS MUNOZ S SUPERVISING AIRPLANE PILOT Ot V58.69 OTH MED,LT,CURRENT USE 07/11/2016 VADIM SOLER MD Ot 162.9 MAL PATI BRONCH/LUNG NOS 07/11/2016 VADIM SOLER MD Ot 786.07 WHEEZING 07/11/2016 VADIM SOLER MD Ot C34.90 MALIGNANT NEOPLASM OF UNSP PART OF UNSP 07/11/2016 VADIM SOLER MD Ot C34.92 MALIGNANT NEOPLASM OF UNSP PART OF LEFT 07/11/2016 VADIM SOLER MD Ot C34.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 07/11/2016 VADIM SOLER MD Ot C34.92 MALIGNANT NEOPLASM OF UNSP PART OF LEFT 07/11/2016 VADIM SOLER MD Ot D64.9 ANEMIA, UNSPECIFIED 07/11/2016 VADIM SOLER MD Ot E11.9 TYPE 2 DIABETES MELLITUS WITHOUT COMPLIC 07/11/2016 VADIM SOLER MD Ot F41.9 ANXIETY DISORDER, UNSPECIFIED 07/11/2016 RYDER HIGUERA, VADIM Ot J44.9 CHRONIC OBSTRUCTIVE PULMONARY DISEASE, U 07/11/2016 RYDER HIGUERA, VADIM Ot Z51.0 ENCOUNTER FOR ANTINEOPLASTIC RADIATION T 07/11/2016 RYDER HIGUERA, VADIM Ot Z87.891 PERSONAL HISTORY OF NICOTINE DEPENDENCE 07/11/2016 RYDER HIGUERA, VADIM Ot 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 NEOPLASM OF UPPER LOBE, LEFT B 07/17/2016 Ot 733.90 BONE CARTILAGE DIS NOS 07/17/2016 Ot V76.12 OTH SCREEN MAMMO-MALIGN NEOPLASM OF GI 07/17/2016 Ot V72.84 EXAM PRE-OPERATIVE NOS 07/17/2016 MANASA RODRATE DO Ot V76.12 OTH SCREEN MAMMO-MALIGN NEOPLASM OF GI 07/17/2016 MANASA RODARTE DO Ot 285.9 ANEMIA NOS 07/17/2016 MANASA RODARTE DO Ot 599.0 URIN TRACT INFECTION NOS 07/17/2016 DEEPTHI RODARTE SUPERVISING AIRPLANE PILOT Ot 496 CHR AIRWAY OBSTRUCT NEC 07/17/2016 DEEPTHI RODARTE SUPERVISING AIRPLANE PILOT Ot 786.2 COUGH 07/17/2016 DEEPTHI RODARTE SUPERVISING AIRPLANE PILOT Ot 793.19 OTHER NONSPECIFIC ABNORMAL FINDING OF ELIZ 07/17/2016 DEEPTHI RODARTE SUPERVISING AIRPLANE PILOT Ot 786.09 RESPIRATORY ABNORM NEC 07/17/2016 DEEPTHI RODARTE SUPERVISING AIRPLANE PILOT Ot 786.6 CHEST SWELLING/MASS/LUMP 07/17/2016 AVELINA LUGO DO Ot 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 07/17/2016 AVELINA LUGO DO Ot 493.90 ASTHMA, UNSPECIFIED 07/17/2016 AVELINA LUGO DO Ot 784.42 DYSPHONIA 07/17/2016 AVELINA LUGO DO Ot 786.6 CHEST SWELLING/MASS/LUMP 07/17/2016 SILVANA BREAUX DO Ot V72.84 EXAM PRE-OPERATIVE NOS 07/17/2016 ROSS MUNOZ SUPERVISING AIRPLANE PILOT Ot 162.9 MAL PATI BRONCH/LUNG NOS 07/17/2016 ROSS MUNOZ SUPERVISING AIRPLANE PILOT Ot 196.9 MAL PATI LYMPH NODE NOS 07/17/2016 ROSS MUNOZ SUPERVISING AIRPLANE PILOT Ot 197.7 SECOND MALIG PATI LIVER 07/17/2016 MUNOZ, HILAH S SUPERVISING AIRPLANE PILOT Ot 250.00 DIAB LUCILLE WO COMPL, TYPE II OR UNSPEC TY 07/17/2016 MUNOZ, HILAH S SUPERVISING AIRPLANE PILOT Ot 285.9 ANEMIA NOS 07/17/2016 MUNOZ, HILAH S SUPERVISING AIRPLANE PILOT Ot 401.9 HYPERTENSION NOS 07/17/2016 MUNOZ, HILAH S SUPERVISING AIRPLANE PILOT Ot 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 07/17/2016 MUNOZ, HILAH S SUPERVISING AIRPLANE PILOT Ot 496 CHR AIRWAY OBSTRUCT NEC 07/17/2016 MUNOZ, HILAH S SUPERVISING AIRPLANE PILOT Ot 530.81 ESOPHAGEAL REFLUX 07/17/2016 MUNOZ, HILAH S SUPERVISING AIRPLANE PILOT Ot 784.42 DYSPHONIA 07/17/2016 MUNOZ, HILAH S SUPERVISING AIRPLANE PILOT Ot V15.82 HISTORY OF TOBACCO USE 07/17/2016 MUNOZ, HILAH S SUPERVISING AIRPLANE PILOT Ot V58.69 OTH MED,LT,CURRENT USE 07/17/2016 Ot 162.9 MAL PATI BRONCH/LUNG NOS 07/17/2016 Ot 197.7 SECOND ASHLEY PATI LIVER 07/17/2016 Ot 250.00 DIAB LUCILLE WO COMPL, TYPE II OR UNSPEC TY 07/17/2016 Ot 285.9 ANEMIA NOS 07/17/2016 Ot 401.9 HYPERTENSION NOS 07/17/2016 Ot 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 07/17/2016 Ot 496 CHR AIRWAY OBSTRUCT NEC 07/17/2016 Ot 530.81 ESOPHAGEAL REFLUX 07/17/2016 Ot 784.42 DYSPHONIA 07/17/2016 Ot V15.82 HISTORY OF TOBACCO USE 07/17/2016 Ot V58.69 OTH MED,LT,CURRENT USE 07/17/2016 MUNOZANAAH S SUPERVISING AIRPLANE PILOT Ot 162.9 MAL PATI BRONCH/LUNG NOS 07/17/2016 MUNOZ, HILAH S SUPERVISING AIRPLANE PILOT Ot 162.9 MAL PATI BRONCH/LUNG NOS 07/17/2016 MUNOZ, HILAH S SUPERVISING AIRPLANE PILOT Ot 197.7 SECOND JOSHUAIG PATI LIVER 07/17/2016 MUNOZ, HILAH S SUPERVISING AIRPLANE PILOT Ot 250.00 DIAB LUCILLE WO COMPL, TYPE II OR UNSPEC TY 07/17/2016 MUNOZ, HILAH S SUPERVISING AIRPLANE PILOT Ot 285.9 ANEMIA NOS 07/17/2016 MUNOZ, HILAH S SUPERVISING AIRPLANE PILOT Ot 401.9 HYPERTENSION NOS 07/17/2016 MUNOZ, HILAH S SUPERVISING AIRPLANE PILOT Ot 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 07/17/2016 ROSS MUNOZ S SUPERVISING AIRPLANE PILOT Ot 496 CHR AIRWAY OBSTRUCT NEC 07/17/2016 ROSS MUNOZ S SUPERVISING AIRPLANE PILOT Ot 530.81 ESOPHAGEAL REFLUX 07/17/2016 ROSS MUNOZ S SUPERVISING AIRPLANE PILOT Ot 784.42 DYSPHONIA 07/17/2016 ROSS MUNOZ S SUPERVISING AIRPLANE PILOT Ot V15.82 HISTORY OF TOBACCO USE 07/17/2016 ROSS MUNOZ S SUPERVISING AIRPLANE PILOT Ot V58.69 OTH MED,LT,CURRENT USE 07/17/2016 VADIM SOLER MD Ot 162.9 MAL PATI BRONCH/LUNG NOS 07/17/2016 MUNOZROSS Sharp S SUPERVISING AIRPLANE PILOT Ot 162.9 MAL PATI BRONCH/LUNG NOS 07/17/2016 ROSS MUNOZ S SUPERVISING AIRPLANE PILOT Ot 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 07/17/2016 ROSS MUNOZ S SUPERVISING AIRPLANE PILOT Ot 250.00 DIAB LUCILLE WO COMPL, TYPE II OR UNSPEC TY 07/17/2016 ROSS MUNOZ S SUPERVISING AIRPLANE PILOT Ot 285.9 ANEMIA NOS 07/17/2016 ROSS MUNOZ S SUPERVISING AIRPLANE PILOT Ot 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 07/17/2016 RSOS MUNOZ S SUPERVISING AIRPLANE PILOT Ot 496 CHR AIRWAY OBSTRUCT NEC 07/17/2016 ROSS MUNOZ S SUPERVISING AIRPLANE PILOT Ot 530.81 ESOPHAGEAL REFLUX 07/17/2016 ROSS MUNOZ S SUPERVISING AIRPLANE PILOT Ot 784.42 DYSPHONIA 07/17/2016 ROSS MUNOZ SUPERVISING AIRPLANE PILOT Ot V58.69 OTH MED,LT,CURRENT USE 07/17/2016 ROSS MUNOZ S SUPERVISING AIRPLANE PILOT Ot V87.41 PERSONAL HISTORY OF ANTINEOPLASTIC CHEMO 07/17/2016 VADIM SOLER MD Ot 162.9 MAL PATI BRONCH/LUNG NOS 07/17/2016 VADIM SOLER MD Ot 368.9 VISUAL DISTURBANCE NOS 07/17/2016 VADIM SOLER MD Ot 695.9 ERYTHEMATOUS COND NOS 07/17/2016 VADIM SOLER MD Ot 782.3 EDEMA 07/17/2016 VADIM SOLER MD Ot V40.1 PROB WITH COMMUNICATION 07/17/2016 VADIM SOLER MD Ot 162.9 MAL PATI BRONCH/LUNG NOS 07/17/2016 VADIM SOLER MD Ot 368.9 VISUAL DISTURBANCE NOS 07/17/2016 VADIM SOLER MD Ot 695.9 ERYTHEMATOUS COND NOS 07/17/2016 VADIM SOLER MD Ot 782.3 EDEMA 07/17/2016 VADIM SOLER MD Ot V40.1 PROB WITH COMMUNICATION 07/17/2016 VADIM SOLER MD Ot 162.9 MAL PATI BRONCH/LUNG NOS 07/17/2016 VADIM SOLER MD Ot 511.9 PLEURAL EFFUSION NOS 07/17/2016 ROSS MUNOZ S SUPERVISING AIRPLANE PILOT Ot 162.9 MAL PATI BRONCH/LUNG NOS 07/17/2016 ROSS MUNOZ S SUPERVISING AIRPLANE PILOT Ot 250.00 DIAB LUCILLE WO COMPL, TYPE II OR UNSPEC TY 07/17/2016 ANA MUNOZAH S SUPERVISING AIRPLANE PILOT Ot 285.9 ANEMIA NOS 07/17/2016 ROSS MUNOZ S SUPERVISING AIRPLANE PILOT Ot 356.9 IDIO PERIPH NEURPTHY NOS 07/17/2016 ROSS MUNOZ S SUPERVISING AIRPLANE PILOT Ot 401.9 HYPERTENSION NOS 07/17/2016 ROSS MUNOZ S SUPERVISING AIRPLANE PILOT Ot 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 07/17/2016 ROSS MUNOZ S SUPERVISING AIRPLANE PILOT Ot 496 CHR AIRWAY OBSTRUCT NEC 07/17/2016 ROSS MUNOZ S SUPERVISING AIRPLANE PILOT Ot 530.81 ESOPHAGEAL REFLUX 07/17/2016 ROSS MUNOZ S SUPERVISING AIRPLANE PILOT Ot 784.42 DYSPHONIA 07/17/2016 ROSS MUNOZ S SUPERVISING AIRPLANE PILOT Ot V12.54 PERSONAL HX OF TIA, CEREBRAL INFARCTION 07/17/2016 ROSS MUNOZ S SUPERVISING AIRPLANE PILOT Ot V58.69 OTH MED,LT,CURRENT USE 07/17/2016 VADIM SOLER MD Ot 162.9 MAL PATI BRONCH/LUNG NOS 07/17/2016 VADIM SOLER MD Ot 786.07 WHEEZING 07/17/2016 VADIM SOLER MD Ot C34.90 MALIGNANT NEOPLASM OF UNSP PART OF UNSP 07/17/2016 VADIM SOLER MD Ot C34.92 MALIGNANT NEOPLASM OF UNSP PART OF LEFT 07/17/2016 VADIM SOLER MD Ot C34.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 07/17/2016 VADIM SOLER MD Ot C34.92 MALIGNANT NEOPLASM OF UNSP PART OF LEFT 07/17/2016 VADIM SOLER MD Ot D64.9 ANEMIA, UNSPECIFIED 07/17/2016 VADIM SOLER MD, Ot E11.9 TYPE 2 DIABETES MELLITUS WITHOUT COMPLIC 07/17/2016 VADIM SOLER MD, Ot F41.9 ANXIETY DISORDER, UNSPECIFIED 07/17/2016 VADIM SOLER MD, Ot J44.9 CHRONIC OBSTRUCTIVE PULMONARY DISEASE, U 07/17/2016 VADIM SOLER MD, Ot Z51.0 ENCOUNTER FOR ANTINEOPLASTIC RADIATION T 07/17/2016 VADIM SOLER MD, Ot Z87.891 PERSONAL HISTORY OF NICOTINE DEPENDENCE 07/17/2016 VADIM SOLER MD, Ot 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 NEOPLASM OF UPPER LOBE, LEFT B 07/19/2016 AVELINA LUGO DO Ot 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 NEOPLASM OF UPPER LOBE, LEFT B 07/19/2016 AVELINA LUGO DO Ot J45.909 UNSPECIFIED ASTHMA, UNCOMPLICATED 07/19/2016 AVELINA LUGO DO Ot R91.8 OTHER NONSPECIFIC ABNORMAL FINDING OF ELIZ 07/22/2016 VADIM SOLER MD, Ot C34.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 07/22/2016 VADIM SOLER MD, Ot C34.92 MALIGNANT NEOPLASM OF UNSP PART OF LEFT 07/22/2016 VADIM SOLER MD, Ot D64.9 ANEMIA, UNSPECIFIED 07/22/2016 VADIM SOLER MD, Ot E11.9 TYPE 2 DIABETES MELLITUS WITHOUT COMPLIC 07/22/2016 VADIM SOLER MD, Ot F41.9 ANXIETY DISORDER, UNSPECIFIED 07/22/2016 VADIM SOLER MD, Ot J44.9 CHRONIC OBSTRUCTIVE PULMONARY DISEASE, U 07/22/2016 VADIM SOLER MD, Ot Z51.0 ENCOUNTER FOR ANTINEOPLASTIC RADIATION T 07/22/2016 VADIM SOLER MD, Ot Z87.891 PERSONAL HISTORY OF NICOTINE DEPENDENCE 07/26/2016 VADIM SOLER MD, Ot C34.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 07/26/2016 VADIM SOLER MD Ot C34.92 MALIGNANT NEOPLASM OF UNSP PART OF LEFT 07/26/2016 VADIM SOLER MD, Ot D64.9 ANEMIA, UNSPECIFIED 07/26/2016 VADIM SOLER MD Ot E11.9 TYPE 2 DIABETES MELLITUS WITHOUT COMPLIC 07/26/2016 VADIM SOLER MD Ot F41.9 ANXIETY DISORDER, UNSPECIFIED 07/26/2016 VADMI SOLER MD Ot J44.9 CHRONIC OBSTRUCTIVE PULMONARY DISEASE, U 07/26/2016 VADIM SOLER MD Ot Z51.0 ENCOUNTER FOR ANTINEOPLASTIC RADIATION T 07/26/2016 VADIM SOLER MD, Ot Z87.891 PERSONAL HISTORY OF NICOTINE DEPENDENCE 07/26/2016 VADIM SOLER MD Ot 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 NEOPLASM OF UPPER LOBE, LEFT B 07/31/2016 VADIM SOLER MD, Ot 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 NEOPLASM OF UPPER LOBE, LEFT B 08/08/2016 PARISH DOEVITAAVELINA M Ot 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 NEOPLASM OF UPPER LOBE, LEFT B 08/08/2016 PARISH DOEVITAAVELINA M Ot J45.909 UNSPECIFIED ASTHMA, UNCOMPLICATED 08/08/2016 PARISH DO AVELINA M Ot R91.8 OTHER NONSPECIFIC ABNORMAL FINDING OF ELIZ 08/13/2016 PARISH DOEVITAAVELINA M Ot 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 NEOPLASM OF UPPER LOBE, LEFT B 08/13/2016 PARISH DOEVITAAVELINA M Ot J45.909 UNSPECIFIED ASTHMA, UNCOMPLICATED 08/13/2016 PARISH DO, AVELINA M Ot R91.8 OTHER NONSPECIFIC ABNORMAL FINDING OF ELIZ 08/19/2016 VADIM SOLER MD Ot C34.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 08/19/2016 VADIM SOLER MD Ot C34.92 MALIGNANT NEOPLASM OF UNSP PART OF LEFT 08/19/2016 VADIM SOLER MD Ot D64.9 ANEMIA, UNSPECIFIED 08/19/2016 VADIM SOLER MD Ot E11.9 TYPE 2 DIABETES MELLITUS WITHOUT COMPLIC 08/19/2016 VADIM SOLER MD, Ot F41.9 ANXIETY DISORDER, UNSPECIFIED 08/19/2016 VADIM SOLER MD, Ot J44.9 CHRONIC OBSTRUCTIVE PULMONARY DISEASE, U 08/19/2016 VADIM SOLER MD Ot Z51.0 ENCOUNTER FOR ANTINEOPLASTIC RADIATION T 08/19/2016 VADIM SOLER MD, Ot Z87.891 PERSONAL HISTORY OF NICOTINE DEPENDENCE 09/02/2016 Ot 733.90 BONE CARTILAGE DIS NOS 09/02/2016 Ot V76.12 OTH SCREEN MAMMO-MALIGN NEOPLASM OF GI 09/02/2016 Ot V72.84 EXAM PRE-OPERATIVE NOS 09/02/2016 CAYDEN CANO MANASA Castillo Ot V76.12 OTH SCREEN MAMMO-MALIGN NEOPLASM OF GI 09/02/2016 CAYDEN DO MANASA Anna Ot 285.9 ANEMIA NOS 09/02/2016 RODARTE DO MANASA Anna Ot 599.0 URIN TRACT INFECTION NOS 09/02/2016 DEEPTHI RODARTE SUPERVISING AIRPLANE PILOT Ot 496 CHR AIRWAY OBSTRUCT NEC 09/02/2016 DEEPTHI RODARTE SUPERVISING AIRPLANE PILOT Ot 786.2 COUGH 09/02/2016 DEEPTHI RODATRE SUPERVISING AIRPLANE PILOT Ot 793.19 OTHER NONSPECIFIC ABNORMAL FINDING OF ELIZ 09/02/2016 DEEPTHI RODARTE SUPERVISING AIRPLANE PILOT Ot 786.09 RESPIRATORY ABNORM NEC 09/02/2016 DEEPTHI RODARTE SUPERVISING AIRPLANE PILOT Ot 786.6 CHEST SWELLING/MASS/LUMP 09/02/2016 AVELINA LUGO DO Ot 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 09/02/2016 AVELINA LUGO DO Ot 493.90 ASTHMA, UNSPECIFIED 09/02/2016 AVELINA LUGO DO Ot 784.42 DYSPHONIA 09/02/2016 AVELINA LUGO DO Ot 786.6 CHEST SWELLING/MASS/LUMP 09/02/2016 SILVANA BREAUX DO Ot V72.84 EXAM PRE-OPERATIVE NOS 09/02/2016 RSOS MUNOZ SUPERVISING AIRPLANE PILOT Ot 162.9 MAL PATI BRONCH/LUNG NOS 09/02/2016 ROSS MUNOZ SUPERVISING AIRPLANE PILOT Ot 196.9 MAL PATI LYMPH NODE NOS 09/02/2016 ROSS MUNOZ SUPERVISING AIRPLANE PILOT Ot 197.7 SECOND MALIG PATI LIVER 09/02/2016 ROSS MUNOZ SUPERVISING AIRPLANE PILOT Ot 250.00 DIAB LUCILLE WO COMPL, TYPE II OR UNSPEC TY 09/02/2016 ROSS MUNOZ SUPERVISING AIRPLANE PILOT Ot 285.9 ANEMIA NOS 09/02/2016 ROSS MUNOZ SUPERVISING AIRPLANE PILOT Ot 401.9 HYPERTENSION NOS 09/02/2016 ROSS MUNOZ SUPERVISING AIRPLANE PILOT Ot 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 09/02/2016 ROSS MUNOZ SUPERVISING AIRPLANE PILOT Ot 496 CHR AIRWAY OBSTRUCT NEC 09/02/2016 ROSS MUNOZ SUPERVISING AIRPLANE PILOT Ot 530.81 ESOPHAGEAL REFLUX 09/02/2016 MUNOZROSS Sharp S SUPERVISING AIRPLANE PILOT Ot 784.42 DYSPHONIA 09/02/2016 MUNOZROSS Sharp S SUPERVISING AIRPLANE PILOT Ot V15.82 HISTORY OF TOBACCO USE 09/02/2016 MUNOZROSS Sharp S SUPERVISING AIRPLANE PILOT Ot V58.69 OTH MED,LT,CURRENT USE 09/02/2016 Ot 162.9 MAL PATI BRONCH/LUNG NOS 09/02/2016 Ot 197.7 SECOND MALIG PATI LIVER 09/02/2016 Ot 250.00 DIAB LUCILLE WO COMPL, TYPE II OR UNSPEC TY 09/02/2016 Ot 285.9 ANEMIA NOS 09/02/2016 Ot 401.9 HYPERTENSION NOS 09/02/2016 Ot 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 09/02/2016 Ot 496 CHR AIRWAY OBSTRUCT NEC 09/02/2016 Ot 530.81 ESOPHAGEAL REFLUX 09/02/2016 Ot 784.42 DYSPHONIA 09/02/2016 Ot V15.82 HISTORY OF TOBACCO USE 09/02/2016 Ot V58.69 OTH MED,LT,CURRENT USE 09/02/2016 ROSS MUNOZ S SUPERVISING AIRPLANE PILOT Ot 162.9 MAL PATI BRONCH/LUNG NOS 09/02/2016 MUNOZ, HILAH S SUPERVISING AIRPLANE PILOT Ot 162.9 MAL PATI BRONCH/LUNG NOS 09/02/2016 MUNOZ, HILAH S SUPERVISING AIRPLANE PILOT Ot 197.7 SECOND MALIG PATI LIVER 09/02/2016 MUNOZROSS Sharp S SUPERVISING AIRPLANE PILOT Ot 250.00 DIAB LUCILLE WO COMPL, TYPE II OR UNSPEC TY 09/02/2016 MUNOZROSS Sharp S SUPERVISING AIRPLANE PILOT Ot 285.9 ANEMIA NOS 09/02/2016 MUNOZ, HILAH S SUPERVISING AIRPLANE PILOT Ot 401.9 HYPERTENSION NOS 09/02/2016 MUNOZROSS Sharp S SUPERVISING AIRPLANE PILOT Ot 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 09/02/2016 MUNOZROSS Sharp S SUPERVISING AIRPLANE PILOT Ot 496 CHR AIRWAY OBSTRUCT NEC 09/02/2016 MUNOZ HILAH S SUPERVISING AIRPLANE PILOT Ot 530.81 ESOPHAGEAL REFLUX 09/02/2016 MUNOZ HILAH S SUPERVISING AIRPLANE PILOT Ot 784.42 DYSPHONIA 09/02/2016 MUNOZANAAH S SUPERVISING AIRPLANE PILOT Ot V15.82 HISTORY OF TOBACCO USE 09/02/2016 MUNOZANAAH S SUPERVISING AIRPLANE PILOT Ot V58.69 OTH MED,LT,CURRENT USE 09/02/2016 RYDER HIGUERA, BLOCKASHLEE Ot 162.9 MAL PATI BRONCH/LUNG NOS 09/02/2016 ROSS MUNOZ SUPERVISING AIRPLANE PILOT Ot 162.9 MAL PATI BRONCH/LUNG NOS 09/02/2016 ROSS MUNOZ SUPERVISING AIRPLANE PILOT Ot 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 09/02/2016 ROSS MUNOZ S SUPERVISING AIRPLANE PILOT Ot 250.00 DIAB LUCILLE WO COMPL, TYPE II OR UNSPEC TY 09/02/2016 ROSS MUNOZ S SUPERVISING AIRPLANE PILOT Ot 285.9 ANEMIA NOS 09/02/2016 ROSS MUNOZ S SUPERVISING AIRPLANE PILOT Ot 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 09/02/2016 ROSS MUNOZ S SUPERVISING AIRPLANE PILOT Ot 496 CHR AIRWAY OBSTRUCT NEC 09/02/2016 ROSS MUNOZ S SUPERVISING AIRPLANE PILOT Ot 530.81 ESOPHAGEAL REFLUX 09/02/2016 ROSS MUNOZ SUPERVISING AIRPLANE PILOT Ot 784.42 DYSPHONIA 09/02/2016 ROSS MUNOZ SUPERVISING AIRPLANE PILOT Ot V58.69 OTH MED,LT,CURRENT USE 09/02/2016 ROSS MUNOZ SUPERVISING AIRPLANE PILOT Ot V87.41 PERSONAL HISTORY OF ANTINEOPLASTIC CHEMO 09/02/2016 VADIM SOLER MD Ot 162.9 MAL PATI BRONCH/LUNG NOS 09/02/2016 VADIM SOLER MD Ot 368.9 VISUAL DISTURBANCE NOS 09/02/2016 VADIM SOLER MD Ot 695.9 ERYTHEMATOUS COND NOS 09/02/2016 VADIM SOLER MD Ot 782.3 EDEMA 09/02/2016 AVDIM SOLER MD Ot V40.1 PROB WITH COMMUNICATION 09/02/2016 VADIM SOLER MD Ot 162.9 MAL PATI BRONCH/LUNG NOS 09/02/2016 VADIM SOLER MD Ot 368.9 VISUAL DISTURBANCE NOS 09/02/2016 VADIM SOLER MD Ot 695.9 ERYTHEMATOUS COND NOS 09/02/2016 VADIM SOLER MD Ot 782.3 EDEMA 09/02/2016 VADIM SOLER MD Ot V40.1 PROB WITH COMMUNICATION 09/02/2016 VADIM SOLER MD Ot 162.9 MAL PATI BRONCH/LUNG NOS 09/02/2016 VADIM SOLER MD Ot 511.9 PLEURAL EFFUSION NOS 09/02/2016 ROSS MUNOZ SUPERVISING AIRPLANE PILOT Ot 162.9 MAL PATI BRONCH/LUNG NOS 09/02/2016 ROSS MUNOZ SUPERVISING AIRPLANE PILOT Ot 250.00 DIAB LUCILLE WO COMPL, TYPE II OR UNSPEC TY 09/02/2016 ROSS MUNOZ SUPERVISING AIRPLANE PILOT Ot 285.9 ANEMIA NOS 09/02/2016 ANA MUNOZLUCERO Aron SUPERVISING AIRPLANE PILOT Ot 356.9 IDIO PERIPH NEURPTHY NOS 09/02/2016 ANA MUNOZLUCERO Aron SUPERVISING AIRPLANE PILOT Ot 401.9 HYPERTENSION NOS 09/02/2016 ANA MUNOZLUCERO Aron SUPERVISING AIRPLANE PILOT Ot 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 09/02/2016 ROSS MUNOZ SUPERVISING AIRPLANE PILOT Ot 496 CHR AIRWAY OBSTRUCT NEC 09/02/2016 ANA MUNOZLUCERO Sharp SUPERVISING AIRPLANE PILOT Ot 530.81 ESOPHAGEAL REFLUX 09/02/2016 ALEXANDER ROSS Sharp SUPERVISING AIRPLANE PILOT Ot 784.42 DYSPHONIA 09/02/2016 ROSS MUNOZ SUPERVISING AIRPLANE PILOT Ot V12.54 PERSONAL HX OF TIA, CEREBRAL INFARCTION 09/02/2016 ROSS MUNOZ [employer]PERVIS[employer]PL[employer] PILOT Ot V58.69 OTH MED,LT,CURRENT USE 09/02/2016 VADIM SOLER MD Ot 162.9 MAL PATI BRONCH/LUNG NOS 09/02/2016 VADIM SOLER MD Ot 786.07 WHEEZING 09/02/2016 VADIM SOLER MD Ot C34.90 MALIGNANT NEOPLASM OF UNSP PART OF UNSP 09/02/2016 VADIM SOLER MD Ot C34.92 MALIGNANT NEOPLASM OF UNSP PART OF LEFT 09/02/2016 VADIM SOLER MD, Ot 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 NEOPLASM OF UPPER LOBE, LEFT B 09/02/2016 AVELINA LUGO DO Ot 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 NEOPLASM OF UPPER LOBE, LEFT B 09/02/2016 AVELINA LUGO DO Ot J45.909 UNSPECIFIED ASTHMA, UNCOMPLICATED 09/02/2016 AVELINA LUGO DO Ot R91.8 OTHER NONSPECIFIC ABNORMAL FINDING OF ELIZ 09/02/2016 VADIM SOLER MD Ot C34.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 09/02/2016 VADIM SOLER MD, Ot C34.92 MALIGNANT NEOPLASM OF UNSP PART OF LEFT 09/02/2016 VADIM SOLER MD Ot D64.9 ANEMIA, UNSPECIFIED 09/02/2016 VADIM SOLER MD Ot E11.9 TYPE 2 DIABETES MELLITUS WITHOUT COMPLIC 09/02/2016 VADIM SOLER MD, Ot F41.9 ANXIETY DISORDER, UNSPECIFIED 09/02/2016 VADIM SOLER MD, Ot J44.9 CHRONIC OBSTRUCTIVE PULMONARY DISEASE, U 09/02/2016 VADIM SOLER MD, Ot Z51.0 ENCOUNTER FOR ANTINEOPLASTIC RADIATION T 09/02/2016 VADIM SOLER MD, Ot Z87.891 PERSONAL HISTORY OF NICOTINE DEPENDENCE 09/03/2016 AVELINA ULGO DO Ot 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 NEOPLASM OF UPPER LOBE, LEFT B 09/03/2016 AVELINA LUGO DO Ot J43.8 OTHER EMPHYSEMA 09/03/2016 AVELINA LUGO DO Ot R06.2 WHEEZING 09/03/2016 AVELINA LUGO DO Ot R91.8 OTHER NONSPECIFIC ABNORMAL FINDING OF ELIZ 09/16/2016 VADIM SOLER MD, Ot C34.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 09/16/2016 VADIM SOLER MD, Ot C34.92 MALIGNANT NEOPLASM OF UNSP PART OF LEFT 09/16/2016 VADIM SOLER MD, Ot D64.9 ANEMIA, UNSPECIFIED 09/16/2016 VADIM SOLER MD Ot E11.9 TYPE 2 DIABETES MELLITUS WITHOUT COMPLIC 09/16/2016 VADIM SOLER MD, Ot F41.9 ANXIETY DISORDER, UNSPECIFIED 09/16/2016 VADIM SOLER MD, Ot J44.9 CHRONIC OBSTRUCTIVE PULMONARY DISEASE, U 09/16/2016 VADIM SOLER MD, Ot Z51.0 ENCOUNTER FOR ANTINEOPLASTIC RADIATION T 09/16/2016 VADIM SOLER MD, Ot Z87.891 PERSONAL HISTORY OF NICOTINE DEPENDENCE 10/01/2016 AVELINA LUGO DO Ot 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 NEOPLASM OF UPPER LOBE, LEFT B 10/01/2016 AVELINA LUGO DO Ot J43.8 OTHER EMPHYSEMA 10/01/2016 AVELINA LUGO DO Ot R06.2 WHEEZING 10/01/2016 AVELINA LUGO DO Ot R91.8 OTHER NONSPECIFIC ABNORMAL FINDING OF ELIZ 10/08/2016 VADIM SOLER MD, Ot C34.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 10/08/2016 VADIM SOLER MD Ot C34.92 MALIGNANT NEOPLASM OF UNSP PART OF LEFT 10/08/2016 XUN MD, BLOCK-ASHLEE Ot D64.9 ANEMIA, UNSPECIFIED 10/08/2016 VADIM SOLER MD Ot E11.9 TYPE 2 DIABETES MELLITUS WITHOUT COMPLIC 10/08/2016 VADIM SOLER MD Ot F41.9 ANXIETY DISORDER, UNSPECIFIED 10/08/2016 VADIM SOLER MD Ot J44.9 CHRONIC OBSTRUCTIVE PULMONARY DISEASE, U 10/08/2016 VADIM SOLER MD, Ot Z87.891 PERSONAL HISTORY OF NICOTINE DEPENDENCE 10/09/2016 AVELINA LUGO DO Ot 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 NEOPLASM OF UPPER LOBE, LEFT B 10/09/2016 AVELINA LUGO DO Ot J43.8 OTHER EMPHYSEMA 10/09/2016 AVELINA LUGO DO Ot R06.2 WHEEZING 10/09/2016 AVELINA LUGO DO Ot R91.8 OTHER NONSPECIFIC ABNORMAL FINDING OF ELIZ 10/09/2016 VADIM SOLER MD, Ot C34.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 10/09/2016 VADIM SOLER MD, Ot C34.92 MALIGNANT NEOPLASM OF UNSP PART OF LEFT 10/09/2016 VADIM SOLER MD, Ot D64.9 ANEMIA, UNSPECIFIED 10/09/2016 VADIM SOLER MD Ot E11.9 TYPE 2 DIABETES MELLITUS WITHOUT COMPLIC 10/09/2016 VADIM SOLER MD, Ot F41.9 ANXIETY DISORDER, UNSPECIFIED 10/09/2016 VADIM SOLER MD, Ot J44.9 CHRONIC OBSTRUCTIVE PULMONARY DISEASE, U 10/09/2016 VADIM SOLER MD, Ot Z87.891 PERSONAL HISTORY OF NICOTINE DEPENDENCE 12/01/2016 AVELINA LUGO DO Ot 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 NEOPLASM OF UPPER LOBE, LEFT B 12/01/2016 AVELINA LUGO DO Ot J43.8 OTHER EMPHYSEMA 12/01/2016 AVELINA LUGO DO Ot R06.2 WHEEZING 12/01/2016 AVELINA LUGO DO Ot R91.8 OTHER NONSPECIFIC ABNORMAL FINDING OF ELIZ 12/02/2016 VADIM SOLER MD Ot C34.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 12/02/2016 VADIM SOLER MD Ot C34.92 MALIGNANT NEOPLASM OF UNSP PART OF LEFT 12/02/2016 XUN MD, BLOCK-ASHLEE Ot D64.9 ANEMIA, UNSPECIFIED 12/02/2016 RYDER HIGUERA, VADIM Ot E11.9 TYPE 2 DIABETES MELLITUS WITHOUT COMPLIC 12/02/2016 RYDER HIGUERA, VADIM Pederson F41.9 ANXIETY DISORDER, UNSPECIFIED 12/02/2016 RYDER HIGUERA, VADIM Ot J44.9 CHRONIC OBSTRUCTIVE PULMONARY DISEASE, U 12/02/2016 RYDER HIGUERA, VADIM Ot Z87.891 PERSONAL HISTORY OF NICOTINE DEPENDENCE 12/04/2016 VADIM SOLER MD Ot C34.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 12/04/2016 VADIM SOLER MD Ot C34.92 MALIGNANT NEOPLASM OF UNSP PART OF LEFT 12/04/2016 VADIM SOLER MD, Ot D64.9 ANEMIA, UNSPECIFIED 12/04/2016 RYDER HIGUERA, VADIM Ot E11.9 TYPE 2 DIABETES MELLITUS WITHOUT COMPLIC 12/04/2016 VADIM SOLER MD, Ot F41.9 ANXIETY DISORDER, UNSPECIFIED 12/04/2016 VADIM SOLER MD, Ot J44.9 CHRONIC OBSTRUCTIVE PULMONARY DISEASE, U 12/04/2016 VADIM SOLER MD Ot Z87.891 PERSONAL HISTORY OF NICOTINE DEPENDENCE 12/05/2016 AVELINA LUGO DO Ot 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 NEOPLASM OF UPPER LOBE, LEFT B 12/05/2016 AVELINA LUGO DO Ot J43.8 OTHER EMPHYSEMA 12/05/2016 AVELINA LUGO DO Ot R06.2 WHEEZING 12/05/2016 AVELINA LUGO DO Ot R91.8 OTHER NONSPECIFIC ABNORMAL FINDING OF ELIZ 12/05/2016 AVELINA LUGO DO Ot 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 NEOPLASM OF UPPER LOBE, LEFT B 12/05/2016 AVELINA LUGO DO Ot J43.8 OTHER EMPHYSEMA 12/05/2016 AVELINA LUGO DO M Ot R06.2 WHEEZING 12/05/2016 AVELINA LUGO DO Ot R91.8 OTHER NONSPECIFIC ABNORMAL FINDING OF ELIZ 12/06/2016 AVELINA LUGO DO Ot 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 NEOPLASM OF UPPER LOBE, LEFT B 12/06/2016 AVELINA LUGO DO Ot J43.8 OTHER EMPHYSEMA 12/06/2016 AVELINA LUGO DO Ot R06.2 WHEEZING 12/06/2016 PARISH DO, AVELINA M Ot R91.8 OTHER NONSPECIFIC ABNORMAL FINDING OF ELIZ 12/11/2016 PARISH DOEVITAAVELINA M Ot 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 NEOPLASM OF UPPER LOBE, LEFT B 12/11/2016 PARISH DOEVITAAVELINA M Ot J43.8 OTHER EMPHYSEMA 12/11/2016 PARISH DOEVITAAVELINA M Ot R06.2 WHEEZING 12/11/2016 PARISH DOEVITAAVELINA M Ot R91.8 OTHER NONSPECIFIC ABNORMAL FINDING OF ELIZ 01/06/2017 PARISH DOEVITAAVELINA M Ot 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 NEOPLASM OF UPPER LOBE, LEFT B 01/06/2017 PARISH DOEVITAAVELINA M Ot J43.8 OTHER EMPHYSEMA 01/06/2017 PARISH DOEVITAAVELINA M Ot R06.2 WHEEZING 01/06/2017 PARISH DOEVITAAVELINA M Ot R91.8 OTHER NONSPECIFIC ABNORMAL FINDING OF ELIZ 01/09/2017 PARISH DOEVITAAVELINA M Ot 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 NEOPLASM OF UPPER LOBE, LEFT B 01/09/2017 PARISH DOEVITAAVELINA M Ot J43.8 OTHER EMPHYSEMA 01/09/2017 PARISH DOEVITAAVELINA M Ot R06.2 WHEEZING 01/09/2017 PARISH DOEVITAAVELINA M Ot R91.8 OTHER NONSPECIFIC ABNORMAL FINDING OF ELIZ 01/24/2017 VADIM SOLER MD Ot C34.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 01/24/2017 VADIM SOLER MD, Ot C34.92 MALIGNANT NEOPLASM OF UNSP PART OF LEFT 01/24/2017 VADIM SOLER MD Ot D64.9 ANEMIA, UNSPECIFIED 01/24/2017 VADIM SOLER MD Ot E11.9 TYPE 2 DIABETES MELLITUS WITHOUT COMPLIC 01/24/2017 VADIM SOLER MD Ot F41.9 ANXIETY DISORDER, UNSPECIFIED 01/24/2017 VADIM SOLER MD Ot J44.9 CHRONIC OBSTRUCTIVE PULMONARY DISEASE, U 01/24/2017 VADIM SOLER MD, Ot Z87.891 PERSONAL HISTORY OF NICOTINE DEPENDENCE 01/26/2017 PRACHI MIRANDA MD Ot E11.9 TYPE 2 DIABETES MELLITUS WITHOUT COMPLIC 01/26/2017 PRACHI MIRANDA MD Ot J06.9 ACUTE UPPER RESPIRATORY INFECTION, UNSPE 01/26/2017 PRACHI MIRANDA MD Ot R05 COUGH 01/26/2017 PRACHI MIRANDA MD, Ot Z79.84 MCC (CURRENT) USE OF ORAL HYPOGLYC 01/26/2017 PRACHI MIRANDA MD Ot Z79.899 OTHER MCC (CURRENT) DRUG THERAPY 01/26/2017 PRACHI MIRANDA MD Ot Z85.118 PERSONAL HISTORY OF MALIGNANT NEOPLASM O 01/26/2017 PRACHI MIRANDA MD Ot Z92.21 PERSONAL HISTORY OF ANTINEOPLASTIC CHEMO 01/29/2017 VADIM SOLER MD Ot C34.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 01/29/2017 VADIM SOLER MD Ot C34.92 MALIGNANT NEOPLASM OF UNSP PART OF LEFT 01/29/2017 VADIM SOLER MD, Ot D64.9 ANEMIA, UNSPECIFIED 01/29/2017 VADIM SOLER MD Ot E11.9 TYPE 2 DIABETES MELLITUS WITHOUT COMPLIC 01/29/2017 VADIM SOLER MD, Ot F41.9 ANXIETY DISORDER, UNSPECIFIED 01/29/2017 VADIM SOLER MD, Ot J44.9 CHRONIC OBSTRUCTIVE PULMONARY DISEASE, U 01/29/2017 VADIM SOLER MD Ot Z87.891 PERSONAL HISTORY OF NICOTINE DEPENDENCE 01/30/2017 PRACHI MIRANDA MD Ot E11.9 TYPE 2 DIABETES MELLITUS WITHOUT COMPLIC 01/30/2017 PRACHI MIRANDA MD, Ot J06.9 ACUTE UPPER RESPIRATORY INFECTION, UNSPE 01/30/2017 PRACHI MIRANDA MD Ot R05 COUGH 01/30/2017 PRACHI MIRANDA MD Ot Z79.84 LENDING MANAGER (CURRENT) USE OF ORAL HYPOGLYC 01/30/2017 PRACHI MIRANDA MD Ot Z79.899 OTHER LENDING MANAGER (CURRENT) DRUG THERAPY 01/30/2017 PRACHI MIRANDA MD Ot Z85.118 PERSONAL HISTORY OF MALIGNANT NEOPLASM O 01/30/2017 PRACHI MIRANDA MD Ot Z92.21 PERSONAL HISTORY OF ANTINEOPLASTIC CHEMO 03/03/2017 VADIM SOLER MD Ot C34.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 03/03/2017 VADIM SOLER MD Ot C34.92 MALIGNANT NEOPLASM OF UNSP PART OF LEFT 03/03/2017 VADIM SOLER MD Ot D64.9 ANEMIA, UNSPECIFIED 03/03/2017 XUN MD, BLOCK-ASHLEE Ot E11.9 TYPE 2 DIABETES MELLITUS WITHOUT COMPLIC 03/03/2017 VADIM SOLER MD Ot F41.9 ANXIETY DISORDER, UNSPECIFIED 03/03/2017 VADIM SOLER MD, Ot J44.9 CHRONIC OBSTRUCTIVE PULMONARY DISEASE, U 03/03/2017 VADIM SOLER MD, Ot Z87.891 PERSONAL HISTORY OF NICOTINE DEPENDENCE 03/05/2017 AVELINA LUGO DO Ot 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 NEOPLASM OF UPPER LOBE, LEFT B 03/05/2017 AVELINA LUGO DO Ot J43.8 OTHER EMPHYSEMA 03/05/2017 AVELINA LUGO DO Ot R06.2 WHEEZING 03/05/2017 AVELINA LUGO DO Ot R91.8 OTHER NONSPECIFIC ABNORMAL FINDING OF ELIZ 03/05/2017 VADIM SOLER MD, Ot C34.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 03/05/2017 VADIM SOLER MD, Ot C34.92 MALIGNANT NEOPLASM OF UNSP PART OF LEFT 03/05/2017 VADIM SOLER MD, Ot D64.9 ANEMIA, UNSPECIFIED 03/05/2017 VADIM SOLER MD, Ot E11.9 TYPE 2 DIABETES MELLITUS WITHOUT COMPLIC 03/05/2017 VADIM SOLER MD, Ot F41.9 ANXIETY DISORDER, UNSPECIFIED 03/05/2017 VADIM SOLER MD, Ot J44.9 CHRONIC OBSTRUCTIVE PULMONARY DISEASE, U 03/05/2017 VADIM SOLER MD, Ot Z87.891 PERSONAL HISTORY OF NICOTINE DEPENDENCE 03/06/2017 AVELINA LUGO DO Ot 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 NEOPLASM OF UPPER LOBE, LEFT B 03/06/2017 AVELINA LUGO DO Ot J43.8 OTHER EMPHYSEMA 03/06/2017 AVELINA LUGO DO Ot R06.2 WHEEZING 03/06/2017 AVELINA LUGO DO Ot R91.8 OTHER NONSPECIFIC ABNORMAL FINDING OF ELIZ 03/09/2017 VADIM SOLER MD, Ot C34.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 03/09/2017 VADIM SOLER MD, Ot C34.92 MALIGNANT NEOPLASM OF UNSP PART OF LEFT 03/09/2017 VADIM SOLER MD, Ot D64.9 ANEMIA, UNSPECIFIED 03/09/2017 VADIM SOLER MD, Ot E11.9 TYPE 2 DIABETES MELLITUS WITHOUT COMPLIC 03/09/2017 VADIM SOLER MD Ot F41.9 ANXIETY DISORDER, UNSPECIFIED 03/09/2017 VADIM SOLER MD, Ot J44.9 CHRONIC OBSTRUCTIVE PULMONARY DISEASE, U 03/09/2017 VADIM SOLER MD, Ot Z87.891 PERSONAL HISTORY OF NICOTINE DEPENDENCE 03/11/2017 AVELINA LUGO DO Ot 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 NEOPLASM OF UPPER LOBE, LEFT B 03/11/2017 AVELINA LUGO DO Ot J43.8 OTHER EMPHYSEMA 03/11/2017 AVELINA LUGO DO Ot R06.2 WHEEZING 03/11/2017 AVELINA LUGO DO Ot R91.8 OTHER NONSPECIFIC ABNORMAL FINDING OF ELIZ 04/02/2017 VADIM SOLER MD, Ot C34.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 04/02/2017 VADIM SOLER MD, Ot C34.92 MALIGNANT NEOPLASM OF UNSP PART OF LEFT 04/02/2017 VADIM SOLER MD, Ot D64.9 ANEMIA, UNSPECIFIED 04/02/2017 VADIM SOLER MD, Ot E11.9 TYPE 2 DIABETES MELLITUS WITHOUT COMPLIC 04/02/2017 VADIM SOLER MD, Ot F41.9 ANXIETY DISORDER, UNSPECIFIED 04/02/2017 VADIM SOLER MD, Ot J44.9 CHRONIC OBSTRUCTIVE PULMONARY DISEASE, U 04/02/2017 VADIM SOLER MD, Ot Z87.891 PERSONAL HISTORY OF NICOTINE DEPENDENCE 04/09/2017 VADIM SOLER MD, Ot C34.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 04/09/2017 VADIM SOLER MD Ot C34.92 MALIGNANT NEOPLASM OF UNSP PART OF LEFT 04/09/2017 VADIM SOLER MD, Ot D64.9 ANEMIA, UNSPECIFIED 04/09/2017 VADIM SOLER MD Ot E11.9 TYPE 2 DIABETES MELLITUS WITHOUT COMPLIC 04/09/2017 VADIM SOLER MD, Ot F41.9 ANXIETY DISORDER, UNSPECIFIED 04/09/2017 VADIM SOLER MD, Ot J44.9 CHRONIC OBSTRUCTIVE PULMONARY DISEASE, U 04/09/2017 VADIM SOLER MD, Ot Z87.891 PERSONAL HISTORY OF NICOTINE DEPENDENCE Procedures Results Test Result Range Complete blood count (CBC) with automated white blood cell (WBC) differential - 01/26/17 12:10 Blood leukocytes automated count (number/volume) 12.0 10*3/ uL 4.3-11.0 Blood erythrocytes automated count (number/volume) 3.91 10*6 /uL 4.35-5.85 Venous blood hemoglobin measurement (mass/volume) 11.0 g/dL 11.5-16.0 Blood hematocrit (volume fraction) 34 % 35-52 Automated erythrocyte mean corpuscular volume 87 [foz_us] 80-99 Automated erythrocyte mean corpuscular hemoglobin (mass per erythrocyte) 28 pg 25-34 Automated erythrocyte mean corpuscular hemoglobin concentration measurement ( mass/volume) 32 g/dL 32-36 Automated erythrocyte distribution width ratio 16.9 % 10.0-14.5 Automated blood platelet count (count/volume) 490 10*3/uL 130-400 Automated blood platelet mean volume measurement 9.0 [foz_us ] 7.4-10.4 Automated blood neutrophils/100 leukocytes 82 % 42-75 Automated blood lymphocytes/100 leukocytes 11 % 12-44 Blood monocytes/100 leukocytes 6 % 0-12 Automated blood eosinophils/100 leukocytes 0 % 0-10 Automated blood basophils/100 leukocytes 0 % 0-10 Blood neutrophils automated count (number/volume) 9.9 10*3 1.8-7.8 Blood lymphocytes automated count (number/volume) 1.3 10*3 1.0-4.0 Blood monocytes automated count (number/volume) 0.7 10*3 0.0-1.0 Automated eosinophil count 0.1 10*3/uL 0.0-0.3 Automated blood basophil count (count/volume) 0.0 10*3/uL 0.0-0.1 Comprehensive metabolic panel - 01/26/17 12:10 Serum or plasma sodium measurement (moles/volume) 134 mmol/ L 135-145 Serum or plasma potassium measurement (moles/volume) 3.9 mmol/L 3.6-5.0 Serum or plasma chloride measurement (moles/volume) 94 mmol/ L 98-107 Carbon dioxide 24 mmol/L 21-32 Serum or plasma anion gap determination (moles/volume) 16 mmol/L 5-14 Serum or plasma urea nitrogen measurement (mass/volume) 13 mg/dL 7-18 Serum or plasma creatinine measurement (mass/volume) 0.71 mg /dL 0.60-1.30 Serum or plasma urea nitrogen/creatinine mass ratio 18 NRG Serum or plasma creatinine measurement with calculation of estimated glomerular filtration rate > NRG Serum or plasma glucose measurement (mass/volume) 115 mg/dL 70-105 Serum or plasma calcium measurement (mass/volume) 10.5 mg/ dL 8.5-10.1 Serum or plasma total bilirubin measurement (mass/volume) 0.3 mg/dL 0.1-1.0 Serum or plasma alkaline phosphatase measurement (enzymatic activity/volume) 79 U/L 40-136 Serum or plasma aspartate aminotransferase measurement (enzymatic activity/ volume) 18 U/L 5-34 Serum or plasma alanine aminotransferase measurement (enzymatic activity/volume ) 19 U/L 0-55 Serum or plasma protein measurement (mass/volume) 7.7 g/dL 6.4-8.2 Serum or plasma albumin measurement (mass/volume) 4.0 g/dL 3.2-4.5 Encounters ACCT No. Visit Date/Time Discharge Status Pt. Type Provider Facility Loc./Unit Complaint [id number] 12/19/2016 10:00:00 2016 00:01:00 DIS Outpatient AVELINA LUGO DO [facility] PULM WHEEZING,COPD,LUNG MASS, SQUAMOUS CELL CA OF LUNG [id number] 02/04/2017 10:57:00 2016 00:01:00 DIS Outpatient VADIM SOLER MD [facility] ONC [id number] 01/26/2017 11:42:00 2016 13:33:00 DIS Emergency PRACHI MIRANDA MD [facility] ER PRODUCTIVE COUGH/FEVER [id number] 11/26/2016 09:50:00 2016 00:01:00 DIS Outpatient VADIM SOLER MD [facility] ONC [id number] 11/28/2016 10:00:00 2016 00:01:00 DIS Outpatient AVELINA LUGO DO [facility] PULM WHEEZING,COPD,LUNG MASS, SQUAMOUS CELL CA OF LUNG [id number] 07/30/2016 10:31:00 2015 08:30:00 DIS Outpatient VADIM SOLER MD [facility] ONC [id number] 05/27/2016 09:39:00 2015 00:01:00 DIS Outpatient VADIM SOLER MD [facility] ONC [id number] 02/13/2016 09:38:00 2015 00:01:00 DIS Outpatient VADIM SOLER MD [facility] ONC [id number] 11/07/2015 09:11:00 2015 00:01:00 DIS Outpatient VADIM SOLER MD [facility] ONC [id number] 08/10/2015 08:14:00 2014 23:59:59 CLS Outpatient VADIM SOLER MD [facility] RAD RESTAGING OF LUNG CANCER [id number] 08/01/2015 09:05:00 2014 00:01:00 DIS Outpatient VADIM SOLER MD [facility] ONC [id number] 05/08/2015 09:32:00 2014 00:01:00 DIS Outpatient VADIM SOLER MD [facility] ONC [id number] 05/08/2015 10:23:00 2014 23:59:59 CLS Outpatient VADIM SOLER MD [facility] RAD [id number] 04/18/2015 13:22:00 2014 23:59:59 CLS Outpatient ROSS MUNOZ [facility] ONC [id number] 03/31/2015 08:58:00 2014 23:59:59 CLS Outpatient VADIM SOLER MD [facility] RAD SQUAMOUS CELL CARCINOMA OF LUNG [id number] 02/14/2015 11:01:00 2014 00:01:00 DIS Outpatient VADIM SOLER MD [facility] ONC [id number] 02/08/2015 13:34:00 2014 23:59:59 CLS Outpatient VADIM SOLER MD [facility] RAD REDNESS EDEMA SQUAMOUS CELL CARCINOMA OF LUNG [id number] 02/08/2015 10:40:00 2014 23:59:59 CLS Outpatient VADIM SOLER MD [facility] RAD LUNG CA, VISUAL CHANGES, WORD FINDING DIFFICULTY, [id number] 01/03/2015 14:38:00 2014 23:59:59 CLS Outpatient ROSS MUNOZ [employer] [facility] ONC [id number] 12/01/2014 10:08:00 2014 23:59:59 CLS Outpatient VADIM SOLER MD [facility] RAD LUNG CA [id number] 11/08/2014 12:57:00 2014 00:01:00 DIS Outpatient VADIM SOLER MD [facility] ONC [id number] 09/20/2014 10:15:00 2013 23:59:59 CLS Outpatient ROSS MUNOZ [employer] [facility] ONC [id number] 08/17/2014 09:55:00 2013 23:59:59 CLS Outpatient ROSS MUNOZ [employer] [facility] RAD LUNG CA [id number] 08/02/2014 10:23:00 2013 00:01:00 DIS Outpatient VADIM OSLER MD [facility] ONC [id number] 05/30/2014 09:24:00 2013 23:59:59 CLS Outpatient ROSS MUNOZ [employer] [facility] ONC [id number] 05/26/2014 06:03:00 2013 11:00:00 DIS Outpatient SILVANA BREAUX DO [facility] SDC LUNG CANCER [id number] 05/18/2014 14:16:00 2013 23:59:59 CLS Outpatient SILVANA BREAUX DO [facility] PREOP LUNG CANCER [id number] 05/17/2014 07:59:00 2013 23:59:59 CLS Outpatient AVELINA LUGO DO [facility] RAD LUNG W/METS [id number] 05/09/2014 15:29:00 2013 23:59:59 CLS Outpatient AVELINA LUGO DO [facility] RT LUNG W/METS,ASTHMA [id number] 05/04/2014 06:33:00 2013 10:50:00 DIS Outpatient AVELINA LUGO DO [facility] SDC SHORTNESS OF BREATH; DYSPHASIA,LUNG MASS [id number] 04/25/2014 15:31:00 2013 23:59:59 CLS Outpatient DEEPTHI RODARTE [facility] RAD LUNG MASS, DYSPNEA [id number] 04/25/2014 13:19:00 2013 23:59:59 CLS Outpatient DEEPTHI RODARTE [facility] RAD COUGH,COPD [id number] 10/27/2013 16:03:00 2012 23:59:59 CLS Outpatient MANASA RODARTE DO [facility] LAB ANEMIA,UTI [id number] 10/09/2013 19:27:00 2012 09:10:00 DIS Inpatient MANASA RODARTE DO [facility] ICU ANGIOEDEMA [id number] 04/20/2013 10:28:00 2012 23:59:59 CLS Outpatient MANASA RODARTE DO [facility] RAD SCREENING [id number] 05/02/2017 08:47:00 ACT Outpatient UMAIR SOLER MD [facility] ONC [id number] 05/01/2017 08:40:00 ACT Outpatient UMAIR SOLER MD [facility] RAD SQUAMOUS CELL CARCINOMA C34.12 [id number] 03/06/2017 15:00:00 PEN Preadmit AVELINA LUGO DO [facility] PULM WHEEZING,COPD,LUNG MASS, SQUAMOUS CELL CA OF LUNG [id number] 07/17/2016 15:13:00 ACT Outpatient AVELINA LUGO DO [facility] RT ASTHMA,SQUAMOUS CELL CARCINOMA [id number] 07/02/2016 10:06:00 ACT Outpatient UMAIR SOLER MD [facility] RAD SQUAMOUS CELL CARCINOMA [id number] 03/05/2016 09:17:00 ACT Outpatient RYDER HIGUERA, UMAIR PICKENS [facility] RAD RESTAGING OF LUNG CA [id number] 08/04/2015 14:31:00 Document Registration [id number] 08/04/2015 14:31:00 Document Registration [id number] 08/04/2015 14:31:00 Document Registration [id number] 03/12/2012 08:48:00 Document Registration [id number] 03/18/2011 08:37:00 Document Registration [id number] 10/12/2010 09:07:00 Document Registration [id number] 03/13/2010 13:06:00 Document Registration
== END 2017-05-08 07:20 | disposition home or self-care (01) ==
LOC: EDUNIT# 05:35 → ER 05:39
DX: R07.89 Other chest pain (principal); C34.92 Malignant neoplasm of unspecified part of left bronchus or lung; E87.8 Other disorders of electrolyte and fluid balance, not elsewhere classified; D64.9 Anemia, unspecified; J44.9 Chronic obstructive pulmonary disease, unspecified; J45.909 Unspecified asthma, uncomplicated; I10 Essential (primary) hypertension; K59.09 Other constipation; E11.9 Type 2 diabetes mellitus without complications; F41.9 Anxiety disorder, unspecified; Z87.891 Personal history of nicotine dependence; Z79.84 Long term (current) use of oral hypoglycemic drugs; Z79.899 Other long term (current) drug therapy
CPT/HCPCS: 36415; 71010; 80053; 82150; 82550; 82553; 83690; 83735; 83880; 84484; 85025; 85610; 85730; 93005; 93041; 96374

== ENCOUNTER → 2017-05-16 | Outpatient (CLI) | payer MEDICARE ==
[~2017-05-16] MED LIST changes: +DOCU100T7 PO; +FURO20TA4 PO; +HYDR50TA3 PO; +IOHEXOL 350 MG/ML 100 ML (OMNIPAQUE 350) VIAL IV ONE; +MAGN250T13 PO; +MONT10TA24 PO; +MORP-34 PO; +NS 100 ML (IVPB) BAG IV ONE; +OMEP40CA36 PO; +TIOT18CA2 IH
--- NOTE | 2017-05-16 10:50 | Diagnostic Imaging Report ---
PROCEDURE: CT head with and without contrast. TECHNIQUE: Multiple contiguous axial images were obtained through the brain before and after the administration of intravenous contrast. INDICATION: Mental status change, history of lung cancer. FINDINGS: The unenhanced phase demonstrates no intracranial hemorrhage. There is periventricular and deep white matter hypodensities compatible with chronic microvascular ischemic changes. After contrast administration, no enhancing lesion is identified to suggest metastasis. No hydrocephalus or extra-axial fluid collection seen. The calvarium, the paranasal sinuses and orbits visualized portions appear grossly unremarkable. IMPRESSION: No acute process. No enhancing lesion. Dictated by: Dictated on workstation # [id number]
== END ==
LOC: RAD 09:52
PROVIDERS: ATTEND Internal Medicine Hematology & Oncology
DX: R41.82 Altered mental status, unspecified (principal); Z85.118 Personal history of other malignant neoplasm of bronchus and lung
CPT/HCPCS: 70470

== ENCOUNTER 2017-05-23 14:27 | Outpatient (RCR) | payer MEDICARE ==
[2017-03-04 09:12] LABS: BASOPHILS % (AUTO) 0 % (0-10); EOSINOPHILS # (AUTO) 0.1 10^3/uL (0.0-0.3); EOSINOPHILS % (AUTO) 1 % (0-10); LYMPHOCYTES % (AUTO) 10 % (12-44); MEAN CORPUSCULAR HEMOGLOBIN 28 PG (25-34); MEAN CORPUSCULAR HGB CONC 31 G/DL (32-36); MEAN CORPUSCULAR VOLUME 89 FL (80-99); MEAN PLATELET VOLUME 8.7 FL (7.4-10.4); MONOCYTES # (AUTO) 0.8 X 10^3 (0.0-1.0); MONOCYTES % (AUTO) 8 % (0-12); NEUTROPHILS # (AUTO) 7.8 X 10^3 (1.8-7.8); NEUTROPHILS % (AUTO) 81 % (42-75); PLATELET COUNT 462 10^3/uL (130-400); RED CELL DISTRIBUTION WIDTH 14.5 % (10.0-14.5); WHITE BLOOD COUNT 9.7 10^3/uL (4.3-11.0)
[2017-03-04 09:44] LABS: ALANINE AMINOTRANSFERASE 14 U/L (0-55); ALBUMIN 3.7 G/DL (3.2-4.5); ANION GAP 12 MMOL/L (5-14); ASPARTATE AMINO TRANSFERASE 12 U/L (5-34); BILIRUBIN,TOTAL 0.3 MG/DL (0.1-1.0); BLOOD UREA NITROGEN 15 MG/DL (7-18); BUN/CREATININE RATIO 25; CALCIUM 10.4 MG/DL (8.5-10.1); CARBON DIOXIDE 28 MMOL/L (21-32); CHLORIDE 97 MMOL/L (98-107); GFR ESTIMATED > 60; GLUCOSE 160 MG/DL (70-105); MAGNESIUM 1.9 MG/DL (1.8-2.4); POTASSIUM 3.1 MMOL/L (3.6-5.0); SODIUM 137 MMOL/L (135-145); TOTAL PROTEIN 6.8 G/DL (6.4-8.2)
[2017-04-01 10:45] LABS: BASOPHILS % (AUTO) 0 % (0-10); EOSINOPHILS # (AUTO) 0.1 10^3/uL (0.0-0.3); EOSINOPHILS % (AUTO) 1 % (0-10); LYMPHOCYTES % (AUTO) 9 % (12-44); MEAN CORPUSCULAR HEMOGLOBIN 27 PG (25-34); MEAN CORPUSCULAR HGB CONC 31 G/DL (32-36); MEAN CORPUSCULAR VOLUME 87 FL (80-99); MEAN PLATELET VOLUME 8.3 FL (7.4-10.4); MONOCYTES # (AUTO) 0.6 X 10^3 (0.0-1.0); MONOCYTES % (AUTO) 6 % (0-12); NEUTROPHILS # (AUTO) 9.5 X 10^3 (1.8-7.8); NEUTROPHILS % (AUTO) 85 % (42-75); PLATELET COUNT 499 10^3/uL (130-400); RED BLOOD COUNT 3.49 10^6/uL (4.35-5.85); RED CELL DISTRIBUTION WIDTH 14.3 % (10.0-14.5); WHITE BLOOD COUNT 11.2 10^3/uL (4.3-11.0)
[2017-04-01 11:34] LABS: ALANINE AMINOTRANSFERASE 15 U/L (0-55); ALBUMIN 3.6 G/DL (3.2-4.5); ANION GAP 12 MMOL/L (5-14); ASPARTATE AMINO TRANSFERASE 15 U/L (5-34); BILIRUBIN,TOTAL 0.4 MG/DL (0.1-1.0); BLOOD UREA NITROGEN 20 MG/DL (7-18); BUN/CREATININE RATIO 29; CALCIUM 10.6 MG/DL (8.5-10.1); CARBON DIOXIDE 28 MMOL/L (21-32); CHLORIDE 96 MMOL/L (98-107); CREATININE SERUM 0.69 MG/DL (0.60-1.30); GFR ESTIMATED > 60; GLUCOSE 135 MG/DL (70-105); POTASSIUM 3.2 MMOL/L (3.6-5.0); SODIUM 136 MMOL/L (135-145); TOTAL PROTEIN 7.1 G/DL (6.4-8.2)
[2017-04-12 17:11] LABS: %SAT TOTAL IRON BINDING CAPIC 13 L % (15-50); TIBC 215 L UG/DL (280-380)
[2017-04-12 17:14] LABS: FERRITIN 1021.0 H NG/ML (15.0-150.0); UIBC 186 UG/DL
[2017-04-29 09:09] LABS: BASOPHILS % (AUTO) 0 % (0-10); EOSINOPHILS # (AUTO) 0.2 10^3/uL (0.0-0.3); EOSINOPHILS % (AUTO) 1 % (0-10); LYMPHOCYTES # (AUTO) 1.1 X 10^3 (1.0-4.0); LYMPHOCYTES % (AUTO) 8 % (12-44); MEAN CORPUSCULAR HEMOGLOBIN 26 PG (25-34); MEAN CORPUSCULAR HGB CONC 31 G/DL (32-36); MEAN CORPUSCULAR VOLUME 85 FL (80-99); MEAN PLATELET VOLUME 8.9 FL (7.4-10.4); MONOCYTES # (AUTO) 0.9 X 10^3 (0.0-1.0); MONOCYTES % (AUTO) 7 % (0-12); NEUTROPHILS # (AUTO) 11.2 X 10^3 (1.8-7.8); NEUTROPHILS % (AUTO) 83 % (42-75); PLATELET COUNT 562 10^3/uL (130-400); RED BLOOD COUNT 3.71 10^6/uL (4.35-5.85); RED CELL DISTRIBUTION WIDTH 14.3 % (10.0-14.5); WHITE BLOOD COUNT 13.5 10^3/uL (4.3-11.0)
[2017-04-29 09:28] LABS: ALANINE AMINOTRANSFERASE 19 U/L (0-55); ALBUMIN 3.6 GM/DL (3.2-4.5); ANION GAP 13 MMOL/L (5-14); ASPARTATE AMINO TRANSFERASE 21 U/L (5-34); BILIRUBIN,TOTAL 0.5 MG/DL (0.1-1.0); BLOOD UREA NITROGEN 21 MG/DL (7-18); BUN/CREATININE RATIO 30 (0-20); CALCIUM 11.7 MG/DL (8.5-10.1); CARBON DIOXIDE 26 MMOL/L (21-32); CHLORIDE 94 MMOL/L (98-107); CREATININE SERUM 0.71 MG/DL (0.60-1.30); GFR ESTIMATED > 60; GLUCOSE 199 MG/DL (70-105); HEMOLYSIS 3 (-100-29); ICTERUS 0.3 (-100-1.9); LIPEMIA 3 (-100-49); POTASSIUM 3.3 MMOL/L (3.6-5.0); SODIUM 133 MMOL/L (135-145); TOTAL PROTEIN 7.4 GM/DL (6.4-8.2)
[2017-04-29 09:48] LABS: THYROID STIMULATING HORMONE 0.94 UIU/ML (0.35-4.94)
[2017-05-19 14:17] LABS: BASOPHILS % (AUTO) 0 % (0-10); EOSINOPHILS # (AUTO) 0.1 10^3/uL (0.0-0.3); EOSINOPHILS % (AUTO) 1 % (0-10); LYMPHOCYTES # (AUTO) 0.9 X 10^3 (1.0-4.0); LYMPHOCYTES % (AUTO) 7 % (12-44); MEAN CORPUSCULAR HEMOGLOBIN 26 PG (25-34); MEAN CORPUSCULAR HGB CONC 31 G/DL (32-36); MEAN CORPUSCULAR VOLUME 85 FL (80-99); MEAN PLATELET VOLUME 7.8 FL (7.4-10.4); MONOCYTES # (AUTO) 0.9 X 10^3 (0.0-1.0); MONOCYTES % (AUTO) 7 % (0-12); NEUTROPHILS # (AUTO) 11.1 X 10^3 (1.8-7.8); NEUTROPHILS % (AUTO) 85 % (42-75); PLATELET COUNT 553 10^3/uL (130-400); RED BLOOD COUNT 3.38 10^6/uL (4.35-5.85); RED CELL DISTRIBUTION WIDTH 14.8 % (10.0-14.5)
[2017-05-19 15:03] LABS: ALANINE AMINOTRANSFERASE 31 U/L (0-55); ALBUMIN 3.3 GM/DL (3.2-4.5); ANION GAP 10 MMOL/L (5-14); ASPARTATE AMINO TRANSFERASE 35 U/L (5-34); BILIRUBIN,TOTAL 0.4 MG/DL (0.1-1.0); BLOOD UREA NITROGEN 13 MG/DL (7-18); BUN/CREATININE RATIO 20; CALCIUM 9.3 MG/DL (8.5-10.1); CARBON DIOXIDE 29 MMOL/L (21-32); CHLORIDE 95 MMOL/L (98-107); CREATININE SERUM 0.66 MG/DL (0.60-1.30); GFR ESTIMATED > 60; GLUCOSE 165 MG/DL (70-105); POTASSIUM 3.6 MMOL/L (3.6-5.0); SODIUM 134 MMOL/L (135-145); TOTAL PROTEIN 6.5 GM/DL (6.4-8.2)
[~2017-05-23 14:27] MED LIST changes: +DEXAMETHASONE IV ONE; -IOHEXOL 350 MG/ML 100 ML (OMNIPAQUE 350) VIAL IV ONE; -NS 100 ML (IVPB) BAG IV ONE; +NS IV 1000 ML (CANCER CTR) 1,000 ML ONE; +NS IV ONE; +ONDANSETRON IV ONE; +ZOLEDRONIC ACID (CANCER CTR) 4 MG in NS (IVPB) CANCER CENTER 100 ML IV ONE; +[UNRECOGNIZED DRUG - OTHER] IV ONE
== END 2017-06-02 | disposition home or self-care (01) ==
LOC: ONC 14:27
PROVIDERS: ATTEND Internal Medicine Hematology & Oncology
DX: Z51.0 Encounter for antineoplastic radiation therapy (principal); C34.91 Malignant neoplasm of unspecified part of right bronchus or lung; C34.92 Malignant neoplasm of unspecified part of left bronchus or lung; J44.9 Chronic obstructive pulmonary disease, unspecified; E11.9 Type 2 diabetes mellitus without complications; D64.9 Anemia, unspecified; F41.9 Anxiety disorder, unspecified; Z87.891 Personal history of nicotine dependence
CPT/HCPCS: 36415; 36591; 77290; 77295; 77332; 77334; 77336; 77417; 77470; 80053; 82728; 83540; 83735; 84443; 85025; 96360; 96361; 96365; 96375; 99213; 99214

== ENCOUNTER 2017-07-02 14:31 | Outpatient (RCR) | payer MEDICARE ==
[2017-06-03 13:46] LABS: BASOPHILS % (AUTO) 0 % (0-10); EOSINOPHILS # (AUTO) 0.1 10^3/uL (0.0-0.3); EOSINOPHILS % (AUTO) 1 % (0-10); LYMPHOCYTES # (AUTO) 1.2 X 10^3 (1.0-4.0); LYMPHOCYTES % (AUTO) 11 % (12-44); MEAN CORPUSCULAR HEMOGLOBIN 25 PG (25-34); MEAN CORPUSCULAR HGB CONC 31 G/DL (32-36); MEAN CORPUSCULAR VOLUME 83 FL (80-99); MONOCYTES % (AUTO) 8 % (0-12); NEUTROPHILS # (AUTO) 9.3 X 10^3 (1.8-7.8); NEUTROPHILS % (AUTO) 80 % (42-75); PLATELET COUNT 590 10^3/uL (130-400); RED BLOOD COUNT 3.73 10^6/uL (4.35-5.85); RED CELL DISTRIBUTION WIDTH 14.9 % (10.0-14.5); WHITE BLOOD COUNT 11.7 10^3/uL (4.3-11.0)
[2017-06-16 14:01] LABS: BASOPHILS % (AUTO) 0 % (0-10); EOSINOPHILS % (AUTO) 0 % (0-10); LYMPHOCYTES % (AUTO) 9 % (12-44); MEAN CORPUSCULAR HEMOGLOBIN 25 PG (25-34); MEAN CORPUSCULAR HGB CONC 31 G/DL (32-36); MEAN CORPUSCULAR VOLUME 83 FL (80-99); MEAN PLATELET VOLUME 8.1 FL (7.4-10.4); MONOCYTES # (AUTO) 0.8 X 10^3 (0.0-1.0); MONOCYTES % (AUTO) 7 % (0-12); NEUTROPHILS % (AUTO) 83 % (42-75); PLATELET COUNT 526 10^3/uL (130-400); RED BLOOD COUNT 3.29 10^6/uL (4.35-5.85); RED CELL DISTRIBUTION WIDTH 15.1 % (10.0-14.5); WHITE BLOOD COUNT 10.9 10^3/uL (4.3-11.0)
[2017-06-16 14:29] LABS: ALANINE AMINOTRANSFERASE 9 U/L (0-55); ALBUMIN 3.4 GM/DL (3.2-4.5); ANION GAP 14 MMOL/L (5-14); ASPARTATE AMINO TRANSFERASE 11 U/L (5-34); BILIRUBIN,TOTAL 0.3 MG/DL (0.1-1.0); BLOOD UREA NITROGEN 17 MG/DL (7-18); BUN/CREATININE RATIO 26; CALCIUM 9.7 MG/DL (8.5-10.1); CARBON DIOXIDE 26 MMOL/L (21-32); CHLORIDE 93 MMOL/L (98-107); CREATININE SERUM 0.65 MG/DL (0.60-1.30); GFR ESTIMATED > 60; GLUCOSE 121 MG/DL (70-105); POTASSIUM 3.2 MMOL/L (3.6-5.0); SODIUM 133 MMOL/L (135-145); TOTAL PROTEIN 6.5 GM/DL (6.4-8.2)
[2017-06-16 14:56] LABS: THYROID STIMULATING HORMONE 0.49 UIU/ML (0.35-4.94)
[~2017-07-02 14:31] MED LIST changes: -DEXAMETHASONE IV ONE; -NS IV 1000 ML (CANCER CTR) 1,000 ML ONE; -NS IV ONE; -ONDANSETRON IV ONE; -ZOLEDRONIC ACID (CANCER CTR) 4 MG in NS (IVPB) CANCER CENTER 100 ML IV ONE; -[UNRECOGNIZED DRUG - OTHER] IV ONE
== END 2017-08-09 | disposition home or self-care (01) ==
LOC: ONC 14:31
PROVIDERS: ATTEND Internal Medicine Hematology & Oncology
DX: Z79.899 Other long term (current) drug therapy; J44.9 Chronic obstructive pulmonary disease, unspecified; C34.91 Malignant neoplasm of unspecified part of right bronchus or lung; F41.9 Anxiety disorder, unspecified; D64.9 Anemia, unspecified; E11.9 Type 2 diabetes mellitus without complications; Z87.891 Personal history of nicotine dependence; C34.92 Malignant neoplasm of unspecified part of left bronchus or lung
CPT/HCPCS: 36415; 36591; 80053; 82728; 83540; 84443; 85025; 99213